=== PATIENT | male | born 1930 | race Caucasian/White ===

== ENCOUNTER 2017-08-11 09:39 | Outpatient (CLI) | payer MEDICARE, MEDICAID | END 2017-08-11 09:40 | disposition home or self-care (01) | LOC: BICULT 09:39 | PROVIDERS: ATTEND Nurse Practitioner Family | DX: R10.9 Unspecified abdominal pain (principal); Q61.02 Congenital multiple renal cysts; N28.89 Other specified disorders of kidney and ureter | CPT/HCPCS: 76700 ==

== ENCOUNTER 2018-03-15 10:27 | Outpatient (CLI) | payer MEDICARE, MEDICAID ==
--- NOTE | 2018-03-15 11:13 | RAD ---
KUB: History: Abdominal pain. FINDINGS: The bowel gas pattern appears nonobstructive. No definite renal calculi are seen. There are arthritic changes of the spine and hips. Vascular calcifications are noted. IMPRESSION: No acute findings. POS: [facility]
--- NOTE | 2018-03-15 11:55 | RAD ---
LUMBAR SPINE THREE VIEWS: HISTORY: An 87-year-old male with low back pain. FINDINGS: Generalized disk osteophytosis. Mild dextroscoliosis. No evidence for acute fracture, dislocation, significant malalignment, or focal bone lesion. IMPRESSION: Lumbar spondylosis with very mild dextroscoliosis. POS: [facility]
== END 2018-03-15 10:28 | disposition home or self-care (01) ==
LOC: RAD-FRANK 10:27
PROVIDERS: ATTEND Nurse Practitioner Family
DX: M54.5 Low back pain (principal); M47.896 Other spondylosis, lumbar region; M41.86 Other forms of scoliosis, lumbar region
CPT/HCPCS: 72100; 74018

== ENCOUNTER 2018-03-31 12:50 | Outpatient (CLI) | payer MEDICARE, MEDICAID ==
[2018-03-31 15:02] LABS: ALT (SGPT) 18 U/L (8-55); AST (SGOT) 27 U/L (5-34); Albumin 4.6 g/dL (3.4-4.8); Alkaline Phosphatase 68 U/L (40-150); Anion Gap 14 mmol/L (10-20); BUN (Urea Nitrogen) 28 mg/dL (8.4-25.7); Bilirubin, Direct 0.4 mg/dL (0.1-0.3); Calc. Creatinine Clearance 0 mL/min (70-130); Calcium 10.3 mg/dL (7.8-10.44); Carbon Dioxide 29 mmol/L (23-31); Cardiac Risk 4.3 (Less than 4.5); Chloride 102 mmol/L (98-107); Cholesterol 154 mg/dl (< 200 Desired); Estimated GFR-MDRD 37; Globulin 3.4 g/dL (2.4-3.5); Glucose 105 mg/dL (83-110); HDL Cholesterol 36 mg/dL (>60 Neg Risk); LDL Cholesterol, Calculated 101 mg/dL; Potassium 3.7 mmol/L (3.5-5.1); Sodium 141 mmol/L (136-145); Triglycerides 86 mg/dL (Less than 150)
== END 2018-03-31 12:51 | disposition home or self-care (01) ==
LOC: LABBT 12:50
PROVIDERS: ATTEND Internal Medicine Cardiovascular Disease
DX: Z01.812 Encounter for preprocedural laboratory examination (principal)
CPT/HCPCS: 80053; 80061; 80076

== ENCOUNTER 2018-04-03 05:42 | Inpatient (IN) | payer MEDICARE, MEDICAID ==
[2018-04-03] MEDS ORDERED: Diazepam 5 MG TAB ONE (08:02)
[2018-04-03] MEDS ORDERED: Nitroglycerin 2% Ointment 1 INCH/1 GM Packet ONE (08:59)
[2018-04-03] MEDS ORDERED: Nitroglycerin 0.4 MG TAB (25 Tab Bottle) ONE (08:59)
[2018-04-03] MEDS ORDERED: Iopamidol 370 76% 100 ML VIAL ONE (11:55)
[2018-04-03] MEDS ORDERED: Lidocaine 1% (PF) 30 ML VIAL ONE (11:57)
[2018-04-03 12:25] LABS: ALT (SGPT) 14 U/L (8-55); AST (SGOT) 22 U/L (5-34); Albumin 3.9 g/dL (3.4-4.8); Alkaline Phosphatase 57 U/L (40-150); Anion Gap 11 mmol/L (10-20); BUN (Urea Nitrogen) 27 mg/dL (8.4-25.7); Bilirubin, Total 0.8 mg/dL (0.2-1.2); Calc. Creatinine Clearance 33 mL/min (70-130); Calcium 9.5 mg/dL (7.8-10.44); Carbon Dioxide 27 mmol/L (23-31); Chloride 106 mmol/L (98-107); Estimated GFR-MDRD 37; Globulin 2.6 g/dL (2.4-3.5); Glucose 96 mg/dL (83-110); Potassium 3.8 mmol/L (3.5-5.1); Protein, Total 6.5 g/dL (5.8-8.1); Sodium 140 mmol/L (136-145)
[2018-04-03] MEDS ORDERED: Nitroglycerin 50 MG/250 ML BOT 250 ML ONE (12:29)
[2018-04-03] MEDS ORDERED: Nitroglycerin 4.9 GM Bottle ONE (12:29)
[2018-04-03] MEDS ORDERED: Metoprolol Tartrate 5 MG/5 ML VIAL ONE ×2 (12:33→13:03)
[2018-04-03] MEDS ORDERED: Albumin 5% 500 ML ONE (12:38)
[2018-04-03] MEDS ORDERED: Fentanyl 250 MCG/5 ML VIAL ONE ×2 (12:47→13:03)
[2018-04-03] MEDS ORDERED: Vecuronium 10 MG VIAL ONE ×2 (12:47→17:01)
[2018-04-03] MEDS ORDERED: Norepinephrine 8 MG/0.9% NS 250 ML ONE (12:47)
[2018-04-03] MEDS ORDERED: Dexmedetomidine 200 MCG/2 ML VIAL ONE (12:47)
[2018-04-03] MEDS ORDERED: Midazolam HCl 5 mg/5 ml Vial ONE (12:47)
[2018-04-03] MEDS ORDERED: Heparin 10,000 UNITS/1 ML VIAL 30,000 UNITS in Sodium Chloride 0.9% 1,000 ML FS SCH (13:15)
[2018-04-03] MEDS ORDERED: CEFAZOLIN 2 GM/50 ML BAG ONE (13:24)
[2018-04-03] MEDS ORDERED: Cardioplegic Soln 1,000 ML BAG ONE (17:01)
[2018-04-03] MEDS ORDERED: Thrombin 5000 UNITS/5 ML VIAL ONE (17:01)
[2018-04-03] MEDS ORDERED: Heparin 5,000 UNITS/ML VIAL ONE (17:01)
[2018-04-03] MEDS ORDERED: Sodium Bicarb 50 MEQ/50 ML VIAL ONE (17:01)
[2018-04-03] MEDS ORDERED: Protamine Sulfate 250 MG/25 ML VIAL ONE (17:01)
[2018-04-03] MEDS ORDERED: PROPOFOL 200 MG/20 ML VIAL ONE (17:01)
[2018-04-03] MEDS ORDERED: Potassium Chloride 60 MEQ/30 ML VIAL ONE (17:01)
[2018-04-03] MEDS ORDERED: Magnesium 5 GM/10 ML VIAL ONE (17:01)
[2018-04-03] MEDS ORDERED: Aminocaproic Acid 5 GM/20 ML VIAL ONE (17:01)
[2018-04-03] MEDS ORDERED: Lidocaine 2% PF 100 mg/5 ml Syringe ONE (17:01)
[2018-04-03] MEDS ORDERED: Heparin 30,000 units/30 ml VIAL ONE (17:01)
[2018-04-03] MEDS ORDERED: Succinylcholine Chloride 20 MG/ML 10 ml SYRINGE FS ONE (17:01)
[2018-04-03] MEDS ORDERED: Papaverine 60 MG/2 ML VIAL ONE (17:01)
[2018-04-03] MEDS ORDERED: Calcium Chloride 1 GM/10 ML Abboject SYRINGE ONE (17:01)
[2018-04-03] MEDS ORDERED: Mannitol 12.5 GM/50 ML ONE (17:01)
[2018-04-03] MEDS ORDERED: PHENYLEPHRINE-NS 100 MCG/ML 10 ML SYRINGE ONE (17:01)
[2018-04-03] MEDS ORDERED: Bisacodyl 10 MG SUPP PR PRN (17:41)
[2018-04-03] MEDS ORDERED: Norepinephrine 8 MG/0.9% NS 250 ML IVPB PRN (17:41)
[2018-04-03] MEDS ORDERED: Mag-Al 1200 mg/1200 mg/30 ML UDCUP PO PRN (17:41)
[2018-04-03] MEDS ORDERED: niCARdipine HCl 25 MG in Sodium Chloride 0.9% 250 ML 240 ML IVPB PRN (17:41)
[2018-04-03] MEDS ORDERED: Guaifenesin DM 100-10/5 ML UDCUP PO PRN (17:41)
[2018-04-03] MEDS ORDERED: Acetaminophen 325 MG TAB PO PRN (17:41)
[2018-04-03] MEDS ORDERED: Bisacodyl 5 MG TAB PO PRN (17:41)
[2018-04-03] MEDS ORDERED: Post-Op Insulin Drip Protocol IVPB ONE (17:41)
[2018-04-03] MEDS ORDERED: Hetastarch 6% 500 ML 500 ML IVPB PRN (17:41)
[2018-04-03] MEDS ORDERED: HYDROcodone/Acetaminophen 5/325 mg Tablet PO PRN ×2 (17:41)
[2018-04-03] MEDS ORDERED: Promethazine HCl 25 MG/ML VIAL IM PRN (17:41)
[2018-04-03] MEDS ORDERED: DOPamine 400 MG/D5W 250 ML 250 ML IVPB PRN (17:41)
[2018-04-03] MEDS ORDERED: Fentanyl 100 MCG/2 ML VIAL SLOW IVP PRN (17:41)
[2018-04-03] MEDS ORDERED: Dextrose 5% in Water 1,000 ML IV PRN (18:08)
[2018-04-03] MEDS ORDERED: Dextrose 50% Abboject 50 ML SYRINGE SLOW IVP PRN (18:08)
[2018-04-03 18:10] LABS: #Eosinphils 0.1 thou/uL (0.0-0.7); #Lymphocytes 1.3 thou/uL (1.20-3.40); #Monocytes 0.5 thou/uL (0.11-0.59); %Basophils 0.1 % (0.0-1.0); %Eosinophils 0.5 % (0.0-10.0); %Lymphocytes 8.2 % (21.0-51.0); %Monocytes 3.3 % (0.0-10.0); %Neutrophils 87.9 % (42.0-75.0); Hemoglobin 9.1 g/dL (14.0-18.0); Mean Corpuscular HGB CONC 33.9 g/dL (32.0-36.0); Mean Corpuscular Hemoglobin 30.9 pg (27.0-31.0); Mean Corpuscular Volume 91.1 fL (78.0-98.0); Platelet Count 169 thou/uL (130-400); RBC Distribution Width 12.9 % (11.5-14.5); Red Blood Cell (RBC) Count 2.93 mill/uL (4.70-6.10); White Blood Cell (WBC) Count 15.9 thou/uL (4.8-10.8)
[2018-04-03 18:17] LABS: INR-International Normal Ratio 1.5; PTT 37.2 SEC (22.9-36.1); Prothrombin Time 17.8 SEC (12.0-14.7)
[2018-04-03 18:26] LABS: Actual Bicarbonate (HCO3a) 22.5 mEq/L (22-28); Base Excess (BEa) -0.8 mEq/L (-2.0 to +3.0); CO2 Tension 32.5 mmHg (35.0-45.0); Carboxyhemoglobin (COHb) 0.7 gm% (0.0-3.0); Hemoglobin (Hb) 10.6 g/dL (14.0-18.0); O2 Tension (PaO2) 90.3 mmHg (> 60.0); pH, Arterial 7.46 (7.35-7.45)
[2018-04-03 18:28] LABS: Puncture Site ALINE
[2018-04-03] MEDS: Insulin Regular 300 UNITS/3 ML VIAL SC PRN ×2 (18:28→23:51)
[2018-04-03 18:29] LABS: ALV-art Gradient 225.575 (0-20)
[2018-04-03 18:35] LABS: Anion Gap 13 mmol/L (10-20); BUN (Urea Nitrogen) 23 mg/dL (8.4-25.7); Calc. Creatinine Clearance 41 mL/min (70-130); Calcium 7.7 mg/dL (7.8-10.44); Carbon Dioxide 21 mmol/L (23-31); Chloride 110 mmol/L (98-107); Estimated GFR-MDRD 47; Glucose 127 mg/dL (83-110); Potassium 3.7 mmol/L (3.5-5.1); Sodium 140 mmol/L (136-145)
[2018-04-03] MEDS: Sodium Chloride 0.45% 1,000 ML IV SCH (18:36)
--- NOTE | 2018-04-03 18:51 | RAD ---
SINGLE VIEW CHEST: HISTORY: Status post open heart surgery. COMPARISON: None. FINDINGS: A single view of the chest show a normal sized cardiomediastinal silhouette. The patient is status p ost sternotomy. There is an endotracheal tube with its tip above the clavicle. A central venous cat heter is seen with its tip in the superior vena cava. A left chest tube and mediastinal drain are pr esent. There is no evidence of consolidation, mass, pneumothorax, or pleural effusion. IMPRESSION: Appropriate position of lines and tubes, status post sternotomy. POS: [facility]
[2018-04-03] MEDS ORDERED: Potassium Chloride 10 MEQ/100 ML PREMIX BAG IVPB PRN (19:00)
--- NOTE | 2018-04-03 19:33 | CON ---
DATE OF CONSULTATION: 04/03/2018 HISTORY OF PRESENT ILLNESS: This is an 87-year-old gentleman who lives alone in the [facility]. He was walking regularly several miles a day for exercise, but earlier this summer curtailed his exer cise program due to epigastric and lower chest discomfort. It was not clear whether this was abdomin al GI problem or cardiac problem. A stress test revealed a normal ejection fraction with anterior la teral ischemia and a cardiac catheterization today demonstrated severe 3-vessel coronary artery disea se. PAST MEDICAL HISTORY: Includes renal insufficiency for which he is followed by Dr. Bernstein. He has no p revious history of cardiac disease. PAST SURGICAL HISTORY: Negative. ALLERGIES: He has no known allergies. MEDICATIONS: Noted in Dr. Dan's office history and physical. PHYSICAL EXAMINATION: GENERAL: He is an alert, cooperative gentleman, 170 pounds stated, height 67 inches stated. CARDIAC: Regular rate and rhythm. No murmurs. LUNGS: Clear to auscultation. ABDOMEN: Soft and nontender. EXTREMITIES: He has a sheath in the right groin. He has no peripheral edema. He has palpable pulse s throughout. Cardiac catheterization shows severe 3-vessel coronary artery disease with potential t argets including an LAD, diagonal, ramus, OM and right PDA. Informed consent has been obtained.
[2018-04-03] MEDS: Fentanyl 100 MCG/2 ML VIAL SLOW IVP PRN (19:48)
[2018-04-03] MEDS ORDERED: Famotidine/PF 20 mg/2ml Vial SLOW IVP SCH (21:00)
[2018-04-03] MEDS ORDERED: Simvastatin 20 MG TAB PO SCH (21:00)
[2018-04-03] MEDS: CEFAZOLIN 2 GM/50 ML BAG IVPB SCH (21:25)
[2018-04-03 23:53] LABS: Hemoglobin 9.6 g/dL (14.0-18.0)
[2018-04-04 00:43] LABS: Actual Bicarbonate (HCO3a) 21.8 mEq/L (22-28); Base Excess (BEa) -3.3 mEq/L (-2.0 to +3.0); pH, Arterial 7.37 (7.35-7.45)
[2018-04-04 00:44] LABS: Carboxyhemoglobin (COHb) 1.5 gm% (0.0-3.0); Hemoglobin (Hb) 9.5 g/dL (14.0-18.0); Puncture Site ALINE
--- NOTE | 2018-04-04 01:03 | OP ---
PREOPERATIVE DIAGNOSIS: Coronary artery disease. POSTOPERATIVE DIAGNOSIS: Coronary artery disease. PROCEDURES: Coronary artery bypass graft x5, left internal mammary artery good quality to a 1.5 to 2 mm LAD, saphenous vein good quality to 1.5 to 2 mm right PDA, saphenous vein good quality to 1.5 mm OM, 1.25 mm ramus, and 1.25 to 1.5 mm diagonal. SURGEON: Hayder Serra M.D. PATTERN CHANGER: Driss Perrin MD TRANSFUSION: None. PROCEDURE IN DETAIL: After adequate anesthesia had been obtained, patient was prepped and draped. Roslyn Perrin initially did an endovascular vein harvest of the left greater saphenous vein. George tripathi, due to some marginal vein quality below the knee, he did an open harvest of the proximal, right gr eater saphenous vein. Simultaneously, I performed a median sternotomy. Left internal mammary artery was harvested. Left pleura was opened in one small area. The mammary was then divided distally aft er heparinization, passed posterior to the thymus gland. Pericardium was incised to allow the mammar y and more direct access to the LAD, following which, the traction sutures were placed in the pericar dium. The aorta and right atrium cannulated and cardiopulmonary bypass instituted. Vessels were ins pected for grafting. The patient had somewhat thickened heart. Aorta was cross-clamped and a liter of cold blood cardioplegia was given through the aortic root, following which the PDA and the OM vein grafts were performed. Heart was beating at that point, an additional 300 mL of cardioplegia was gi major. Following this, the remainder of the grafts were done onto the ramus, diagonal, and LAD and the cross-clamp was removed. Partial occluding clamp placed and 4 proximal anastomoses performed on the aortic root. Following completion of this, proximal and distal suture lines were inspected. Cannul as were removed after weaning from cardiopulmonary bypass. Protamine was given systemically. Aortic cannulation site reinforced with a 4-0 Prolene suture. A mediastinal and left pleural drain were pl aced, following which the sternum was reapproximated with #7 interrupted wire using vancomycin paste on the sternal edges, platelet rich blood, and platelet-poor plasma. Subcutaneous tissue and skin we re closed in layers.
[2018-04-04] MEDS: Potassium Chloride 10 MEQ in Premix Bag 1 BAG IVPB PRN (01:06)
[2018-04-04] MEDS: Fentanyl 100 MCG/2 ML VIAL SLOW IVP PRN (02:26)
[2018-04-04] MEDS: Sodium Chloride 0.45% 1,000 ML IV SCH ×3 (02:33→17:27)
[2018-04-04] MEDS: Ondansetron PF 4 MG/2 ML Vial IVP PRN ×2 (02:54→08:43)
[2018-04-04] MEDS: Insulin Regular 300 UNITS/3 ML VIAL SC PRN (04:23)
[2018-04-04 04:35] LABS: #Lymphocytes 1.2 thou/uL (1.20-3.40); #Monocytes 1.8 thou/uL (0.11-0.59); #Neutrophils 15.6 thou/uL (1.40-6.50); %Eosinophils 0.2 % (0.0-10.0); %Lymphocytes 6.3 % (21.0-51.0); %Monocytes 9.5 % (0.0-10.0); Hemoglobin 9.2 g/dL (14.0-18.0); Mean Corpuscular HGB CONC 33.5 g/dL (32.0-36.0); Mean Corpuscular Hemoglobin 30.8 pg (27.0-31.0); Mean Corpuscular Volume 92.1 fL (78.0-98.0); Mean Platelet Volume 8.1 fL (7.4-10.4); Platelet Count 231 thou/uL (130-400); RBC Distribution Width 13.1 % (11.5-14.5); Red Blood Cell (RBC) Count 2.97 mill/uL (4.70-6.10); White Blood Cell (WBC) Count 18.5 thou/uL (4.8-10.8)
[2018-04-04 04:55] LABS: Anion Gap 14 mmol/L (10-20); BUN (Urea Nitrogen) 27 mg/dL (8.4-25.7); Calc. Creatinine Clearance 33 mL/min (70-130); Calcium 7.9 mg/dL (7.8-10.44); Carbon Dioxide 20 mmol/L (23-31); Chloride 111 mmol/L (98-107); Estimated GFR-MDRD 37; Glucose 131 mg/dL (83-110); Potassium 4.3 mmol/L (3.5-5.1); Sodium 141 mmol/L (136-145)
[2018-04-04] MEDS: CEFAZOLIN 2 GM/50 ML BAG IVPB SCH ×2 (05:04→13:29)
[2018-04-04] MEDS: Aspirin 325 MG TAB PO SCH (08:35)
--- NOTE | 2018-04-04 09:09 | RAD ---
PORTABLE CHEST: Comparison: 04-03-18 History: Post op open heart surgery. FINDINGS: Heart size is enlarged with post op sternotomy changes. Pulmonary vessels are engorged with increased parahilar markings. Also the cardiac silhouette appears larger than it did on the prior exam. This m ay be technique related. Endotracheal tube has been removed. Right subclavian line is unchanged in po sition. IMPRESSION: Cardiomegaly. The cardiac silhouette is larger than on the prior examination of uncertain significanc e, possibly technique related. There are more prominent perihilar markings suggesting an element of e mohinder. POS: [facility]
--- NOTE | 2018-04-04 12:57 | EKG ---
Test Reason : Blood Pressure : / mmHG Vent. Rate : 071 BPM Atrial Rate : 071 BPM P-R Int : 268 ms QRS Dur : 150 ms QT Int : 492 ms P-R-T Axes : 062 -63 112 degrees QTc Int : 534 ms Sinus rhythm with 1st degree A-V block Left axis deviation Left bundle branch block Abnormal ECG Confirmed by MISTY DUEÑAS ([id number]) on 04/04/2018 12:57:20 PM Referred By: SERENA Confirmed By:MISTY DUEÑAS
[2018-04-04] MEDS: Acetaminophen 500 MG TAB PO PRN (20:11)
[2018-04-04] MEDS: Rosuvastatin 20 MG TAB PO SCH (20:11)
[2018-04-04] MEDS ORDERED: Amiodarone HCl 150 MG, Admixture Fee 1 EACH in Dextrose 5% in Water 100 ML IVPB SCH (20:45)
[2018-04-04] MEDS ORDERED: Famotidine/PF 20 mg/2ml Vial SLOW IVP SCH (21:00)
[2018-04-04] MEDS: Amiodarone HCl 450 MG, Admixture Fee 1 EACH in Dextrose 5% in Water 250 ML IVPB SCH (21:04)
[2018-04-05] MEDS: Sodium Chloride 0.45% 1,000 ML IV SCH (03:39)
[2018-04-05 04:57] LABS: #Lymphocytes 2.6 thou/uL (1.20-3.40); #Monocytes 1.9 thou/uL (0.11-0.59); #Neutrophils 13.9 thou/uL (1.40-6.50); %Basophils 0.1 % (0.0-1.0); %Eosinophils 0.2 % (0.0-10.0); %Lymphocytes 14.3 % (21.0-51.0); %Monocytes 10.4 % (0.0-10.0); %Neutrophils 75.1 % (42.0-75.0); Hemoglobin 8.7 g/dL (14.0-18.0); Mean Corpuscular Hemoglobin 30.9 pg (27.0-31.0); Mean Corpuscular Volume 93.6 fL (78.0-98.0); Mean Platelet Volume 8.4 fL (7.4-10.4); Platelet Count 211 thou/uL (130-400); RBC Distribution Width 13.2 % (11.5-14.5); Red Blood Cell (RBC) Count 2.82 mill/uL (4.70-6.10); White Blood Cell (WBC) Count 18.5 thou/uL (4.8-10.8)
[2018-04-05 05:27] LABS: Anion Gap 11 mmol/L (10-20); BUN (Urea Nitrogen) 38 mg/dL (8.4-25.7); Calc. Creatinine Clearance 20 mL/min (70-130); Calcium 8.4 mg/dL (7.8-10.44); Carbon Dioxide 23 mmol/L (23-31); Chloride 105 mmol/L (98-107); Estimated GFR-MDRD 21; Glucose 134 mg/dL (83-110); Potassium 4.3 mmol/L (3.5-5.1); Sodium 135 mmol/L (136-145)
[2018-04-05] MEDS ORDERED: Sodium Chloride 0.45% 1,000 ML IV SCH ×2 (06:07→08:48)
[2018-04-05] MEDS: Amiodarone HCl 450 MG, Admixture Fee 1 EACH in Dextrose 5% in Water 250 ML IVPB SCH ×2 (06:08→16:50)
[2018-04-05] MEDS ORDERED: Albumin 25% 25 GM/100 ML BOT IVPB ONE (07:31)
--- NOTE | 2018-04-05 08:30 | CON ---
DATE OF CONSULTATION: 04/05/2018 SERVICE: Renal Medicine. HISTORY OF PRESENT ILLNESS: Mr. 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 He underwent a cardiac catheterization with subsequent CAB G. He did well with the said CABG. We are now being consulted for management of his chronic renal f ailure. This morning, he feels better. He does have a slight postop chest pain. REVIEW OF SYSTEMS: Positive for postop pain. No shortness of breath, no nausea, no vomiting, no chauncey rrhea, no constipation, no productive cough, no fever or chills, no headache, no hematochezia, no dys uria, no urinary frequency. PAST MEDICAL HISTORY: 1. Longstanding hypertension. 2. 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 3. He has previous hyperlipidemia - on diet. 4. History of BPH. PAST SURGICAL HISTORY: 1. Recently status post cardiac catheterization. 2. Status post coronary artery bypass grafting. SOCIAL HISTORY: Patient is single. No children. He lives alone. He lives in the [facility]. 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 No history of smoking. Alcohol none. No IV drug abuse. No blo od transfusion. Active lifestyle. ALLERGIES: No known drug allergies. TRAUMA: None. IMMUNIZATIONS: Up to date. HOSPITALIZATIONS: Please see past medical history. FAMILY HISTORY: No family history of ESRD. PHYSICAL EXAMINATION: VITAL SIGNS: Blood pressure 130/63, heart rate 97, respiratory rate 9, pulse ox 94%. GENERAL EXAM: Awake, supine, comfortable, not in distress. SKIN: Adequate turgor. HEENT: He has pinkish conjunctivae, anicteric sclerae. NECK: No neck mass, no carotid bruits, no JVD. CHEST: No deformities. LUNGS: Decreased breath sounds. HEART: Normal sinus rhythm. No murmur, no gallops, no rubs. CHEST: Midline sternal operative scar. ABDOMEN: Globular, soft, nontender, no masses. Positive for bowel sounds. Negative for epigastric bruits. GROIN EXAM: No inguinal lymphadenopathy. EXTREMITIES: No edema, no deformities. NEUROLOGICAL EXAM: Awake, oriented to 3 spheres. Moving all extremities. No tremors, no asterixis, no ataxia. Medications of 04/05/2018, Tylenol 1000 mg q.6 hours p.r.n., amiodarone drip, aspirin 325 mg once a d ay, Dulcolax p.r.n., dopamine drip p.r.n., Humulin R sliding scale, morphine sulfate 2 mg IV every 15 minutes p.r.n., nicardipine drip to maintain BP at less than 140 systolic, Levophed drip, Protonix 4 0 mg daily, Crestor 20 mg tab at bedtime, 1/2 normal saline 50 mL per hour, Flomax 0.4 mg at bedtime. LABORATORY DATA: Laboratories of 04/05/2018, white count 18.5, hemoglobin is 8.7, hematocrit 26.4. Sodium 135, potassium 4.3, chloride 105, carbon dioxide 23, BUN 38, creatinine 2.93, glucose 134, mary ellen cium 8.4. 04/04/2018, BUN 27, creatinine 1.76. 04/03/2018, BUN 23, creatinine 1.44. 08/03/2017, cr eatinine 1.58. ASSESSMENT AND PLAN: 1. Acute kidney injury on top of his chronic renal failure, slightly higher creatinine today at 2.93 . Yesterday, this was 1.76. This may be a reflection of hemodynamically-mediated renal dysfunction. However, the chest x-ray did show some increased lung markings. My bias is simply to continue to o bserve the patient. There is no indication for any dialytic intervention. Should the renal function further worsen, we may need to empirically start him on salt-poor albumin at 25 grams IV q.6 hours. No indication for any dialytic intervention. We will be rechecking a urinalysis with this patient t o rule out any acute tubular necrosis. 2. Coronary artery disease - patient is status post coronary artery bypass grafting, doing well. Co ntinue supportive care. Surgery is following. 3. Hypertension. Once patient can take p.o., consider resuming back his oral blood pressure medicat ions. Please note, the patient in the past has taken atenolol, hydrochlorothiazide, minoxidil, and a mlodipine. Thank you for the consult. We will continue to follow.
[2018-04-05] MEDS ORDERED: Amiodarone HCl 150 MG in Dextrose 5% in Water 100 ML IVPB SCH (08:45)
--- NOTE | 2018-04-05 09:25 | RAD ---
CHEST 1 VIEW: Date: 04/05/18 INDICATION: History of status post open heart surgery. COMPARISON: Prior exam dated 04/04/18. FINDINGS: There is cardiomegaly with pulmonary vascular congestion. There is right subclavian central venous ca theter. Mediastinal drain and left-sided thoracostomy tube is unchanged. No pneumothorax is evident. Left basilar opacity and left pleural effusion are stable. IMPRESSION: 1. Peristent left basilar opacity and left-sided pleural effusion. 2. Stable cardiomegaly with improved pulmonary vascular congestion. 3. Stable tubes and lines. 4. No pneumothorax. POS: [facility]
[2018-04-05] MEDS: Albumin 25% 25 GM/100 ML BOT IVPB SCH ×3 (10:04→21:50)
[2018-04-05] MEDS: Aspirin 325 MG TAB PO SCH (10:04)
[2018-04-05] MEDS: Tamsulosin HCl 0.4 MG CAP PO SCH (10:04)
--- NOTE | 2018-04-05 12:39 | ULT ---
RENAL ULTRASOUND: Comparison: None. History: Renal failure. Technique: Multiplanar grayscale and color doppler images were obtained in a renal ultrasound. FINDINGS: The kidneys demonstrate normal cortical echogenicity. There is a cyst in the right kidney measuring 1 .6 cm in greatest dimension. A few small echogenic foci are seen in the left kidney which do not demo nstrate shadowing but could potentially represent nonobstructive left renal calcifications. The large st measures 4 mm in greatest dimension. There is no evidence of hydronephrosis on either side. A Fole y catheter decompresses the urinary bladder. The kidneys measure 10.2 and 9.7 cm in length on the rig ht and left respectively. IMPRESSION: 1. Right renal cyst. 2. Possible nonobstructing left renal calcifications. POS: [facility]
--- NOTE | 2018-04-05 15:45 | EKG ---
Test Reason : Blood Pressure : / mmHG Vent. Rate : 117 BPM Atrial Rate : 120 BPM P-R Int : 000 ms QRS Dur : 140 ms QT Int : 318 ms P-R-T Axes : 000 -41 114 degrees QTc Int : 443 ms Atrial fibrillation with rapid ventricular response Left axis deviation Non-specific intra-ventricular conduction block Cannot rule out Anteroseptal infarct , age undetermined T wave abnormality, consider lateral ischemia Abnormal ECG Confirmed by MISTY DUEÑAS ([id number]) on 04/05/2018 3:44:54 PM Referred By: SPENSER Confirmed By:MISTY DUEÑAS
[2018-04-05 17:05] LABS: Bilirubin Negative (Negative); Blood, Urine Small (Negative); Clarity CLOUDY (Clear); Glucose, Urine (Dipstick) Negative (Negative); Leukocyte Trace (Negative); Nitrite Negative (Negative); Protein, Urine (Dipstick) 30 mg/dL (Neg-Trace); Specific Gravity, Urine 1.009 (1.002-1.036); Urobilinogen 0.2 mg/dL (0.2-1.0)
[2018-04-05 17:07] LABS: Bacteria/HPF None Seen HPF (None Seen); Hyaline Casts/LPF 4-6 HYALINE CAST LPF (0-3 Hyaline); Pathc Cast-AUWi Flag 1.45 (0-2.49); Squamous Epithelial 0-3 HPF (0-3)
[2018-04-05 17:20] LABS: Transitional Epithelial 0-3 HPF (0-3)
[2018-04-05] MEDS: Rosuvastatin 20 MG TAB PO SCH (21:50)
[2018-04-06] MEDS: Albumin 25% 25 GM/100 ML BOT IVPB SCH ×4 (02:03→20:29)
[2018-04-06 03:05] LABS: Actual Bicarbonate (HCO3a) 21.8 mEq/L (22-28); Base Excess (BEa) -2.9 mEq/L (-2.0 to +3.0); Calcium, Ionized 1.16 mmol/L (1.12-1.30); Carboxyhemoglobin (COHb) 1.3 gm% (0.0-3.0); Hemoglobin (Hb) 8.6 g/dL (14.0-18.0); Potassium - ABG Lab 3.88 mmol/L (3.70-5.30); pH, Arterial 7.39 (7.35-7.45)
[2018-04-06 03:13] LABS: O2 Tension (PaO2) 53.1 mmHg (> 60.0); Puncture Site LRA
[2018-04-06] MEDS: hydrALAZINE 20 MG/ML VIAL SLOW IVP PRN ×2 (03:41→13:19)
[2018-04-06] MEDS ORDERED: Furosemide 40 MG/4 ML VIAL SLOW IVP SCH ×2 (03:45→08:00)
[2018-04-06 04:04] LABS: #Eosinphils 0.2 thou/uL (0.0-0.7); #Lymphocytes 1.7 thou/uL (1.20-3.40); #Monocytes 1.3 thou/uL (0.11-0.59); %Basophils 0.1 % (0.0-1.0); %Eosinophils 0.9 % (0.0-10.0); %Lymphocytes 9.7 % (21.0-51.0); %Monocytes 7.5 % (0.0-10.0); %Neutrophils 81.7 % (42.0-75.0); Hemoglobin 8.2 g/dL (14.0-18.0); Mean Corpuscular HGB CONC 33.6 g/dL (32.0-36.0); Mean Corpuscular Hemoglobin 31.1 pg (27.0-31.0); Mean Corpuscular Volume 92.6 fL (78.0-98.0); Mean Platelet Volume 8.6 fL (7.4-10.4); Platelet Count 214 thou/uL (130-400); Red Blood Cell (RBC) Count 2.64 mill/uL (4.70-6.10); White Blood Cell (WBC) Count 17.2 thou/uL (4.8-10.8)
[2018-04-06 04:22] LABS: Anion Gap 15 mmol/L (10-20); BUN (Urea Nitrogen) 39 mg/dL (8.4-25.7); Calc. Creatinine Clearance 25 mL/min (70-130); Calcium 9.4 mg/dL (7.8-10.44); Carbon Dioxide 22 mmol/L (23-31); Chloride 104 mmol/L (98-107); Estimated GFR-MDRD 24; Glucose 151 mg/dL (83-110); Potassium 3.9 mmol/L (3.5-5.1); Sodium 137 mmol/L (136-145)
[2018-04-06] MEDS ORDERED: Metolazone 5 MG TAB PO SCH (06:15)
[2018-04-06] MEDS ORDERED: Atenolol 50 MG TAB PO SCH (06:30)
[2018-04-06] MEDS ORDERED: Midazolam HCl 2 mg/2 ml Vial IVP SCH (08:00)
--- NOTE | 2018-04-06 08:06 | CON ---
DATE OF CONSULTATION: 04/06/2018 CONSULTING PHYSICIAN: Dr. Serra REASON FOR CONSULTATION: Acute hypoxic respiratory failure. HISTORY OF PRESENT ILLNESS: The patient is an 87-year-old male who presented to the hospital on 03/07. He had a cardiac catheterization showing 3-vessel disease. He subsequently underwent kelly ry bypass grafting surgery on 04/03/2018. Postoperatively, his course has been complicated by the de velopment of acute on chronic renal failure and acute respiratory failure requiring BiPAP. Because t he mask is on, I am unable to get much history from this gentleman. PAST MEDICAL HISTORY: 1. Hypertension. 2. Coronary artery disease. 3. Nephropathy due to hypertension. 4. Hyperlipidemia. 5. Benign prostatic hypertrophy. PAST SURGICAL HISTORY: Cardiac catheterization and recent coronary bypass grafting surgery. SOCIAL HISTORY: Nonsmoker, does not consume alcohol. 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 ALLERGIES: None. CURRENT MEDICATIONS: DuoNeb, amiodarone, Tenormin, Lasix, insulin, Zaroxolyn, Protonix, Crestor, Constantino max. PHYSICAL EXAMINATION: VITAL SIGNS: Temperature 98.2, pulse 117, blood pressure 156/94, O2 sat 100%. Intake last 24 hours 520, output 2655. Weight currently 180 pounds. GENERAL: He is resting on BiPAP. His has minute ventilation of about 16.8 liters per minute which i s high. He is tachypneic on the BiPAP. HEENT: Otherwise, unremarkable. NECK: No JVD. LUNGS: Coarse breath sounds. CARDIOVASCULAR: S1, S2, irregularly irregular and tachycardic. ABDOMEN: Soft, obese, nontender. EXTREMITIES: No edema. LABORATORY DATA: Sodium 137, potassium 3.9, chloride 104, CO2 22, BUN 39, creatinine 2.5, glucose 15 1. White blood cell count 17.2, hematocrit 24.5, platelet count 214. His chest x-ray shows pulmonary vascular congestion and post-sternotomy wires. ASSESSMENT: 1. Acute respiratory failure secondary to fluid overload. 2. Acute on chronic renal insufficiency. PLAN: 1. Continue diuresis as you are doing. 2. Consider better rate control of atrial fibrillation. 3. Diurese. 4. We will follow with you and hopefully wean BiPAP as tolerated, throughout the day today.
[2018-04-06] MEDS ORDERED: Midazolam HCl 2 mg/2 ml Vial ONE ×2 (08:10→14:47)
[2018-04-06] MEDS ORDERED: Amiodarone HCl 150 MG, Admixture Fee 1 EACH in Dextrose 5% in Water 100 ML IVPB SCH (08:30)
[2018-04-06] MEDS ORDERED: Amiodarone HCl 450 MG, Admixture Fee 1 EACH in Dextrose 5% in Water 250 ML IVPB SCH (08:30)
[2018-04-06] MEDS: Aspirin 325 MG TAB PO SCH (08:34)
[2018-04-06] MEDS: Tamsulosin HCl 0.4 MG CAP PO SCH (08:34)
--- NOTE | 2018-04-06 09:15 | RAD ---
AP VIEW CHEST: HISTORY: Open heart surgery. FINDINGS: AP view chest is obtained on 04/06/2018. Comparison is made to previous exam from 04/05/2018. AP view chest demonstrates sternotomy wires seen. A right subclavian central line is in place. Card iomegaly noted. Pulmonary vascular congestion is seen. There is some blunting of the left costophrenic angle compatible with a tiny left-sided pleural effus ion. The mediastinal drain has been removed. IMPRESSION: Cardiomegaly and pulmonary vascular congestion. POS: [facility]
--- NOTE | 2018-04-06 09:49 | PRG ---
DATE OF SERVICE: 04/06/2018 SUBJECTIVE: Mr. Williamson is an 87-year-old white male status post CABG and seen by the Renal Service for acute kidney injury on top of his chronic renal failure. Due to the higher creatinine we started the patient back on salt poor albumin. Creatinine is slightly improved from 2.7-2.5. He was noted to be in some respiratory distress today. Lasix 40 mg IV was given. In addition, chest x-ray showed CHF. The plan is to place him on a maintenance dose of IV diuretics. I will place this patient on Lasix 4 0 mg IV q.12 hours. PHYSICAL EXAMINATION: VITAL SIGNS: Blood pressure is 176/94, heart rate is 117, respiratory rate 28, pulse ox 100%. GENERAL: Noted to be awake, alert, in mild respiratory distress noted to be on BiPAP. HEENT: Slightly pale conjunctivae, anicteric sclerae. NECK: No neck mass, no carotid bruits, no JVD. CHEST: No deformities. LUNGS: Clear breath sounds. HEART: Normal sinus rhythm. No murmur, no gallops, no rubs. ABDOMEN: Globular, soft, nontender, no masses. EXTREMITIES: No edema, no deformities. MEDICATIONS: 04/06/2018 - Reviewed. LABORATORY: 04/06/2018 - White count 17.2, hemoglobin 8.2. Sodium 137, potassium 3.9, chloride 104, carbon dioxide 22, BUN 39, creatinine 2.55, glucose 151, calcium 9.4. ASSESSMENT AND PLAN: 1. Congestive heart failure. Resume back Lasix at 60 mg IV q.12 hours. Continue salt poor albumin. 2. Acute kidney injury - hemodynamically mediated renal dysfunction on top of his chronic renal fail ure. Continue salt poor albumin. I agree with current diuretic regimen - will increase Lasix to 60 mg IV q.12 hours. 3. Status post coronary artery bypass graft. Supportive care. Cardiothoracic Surgery following.
[2018-04-06] MEDS: Amiodarone HCl 450 MG in Dextrose 5% in Water 250 ML IVPB SCH ×2 (11:15→20:33)
[2018-04-06] MEDS ORDERED: Digoxin 0.5 MG/2 ML AMP ONE (11:26)
[2018-04-06] MEDS: Midazolam HCl 2 mg/2 ml Vial IVP SCH ×2 (11:30→13:06)
[2018-04-06] MEDS ORDERED: Digoxin 0.5 MG/2 ML AMP SLOW IVP SCH ×2 (11:30→12:30)
[2018-04-06 14:19] LABS: Actual Bicarbonate (HCO3a) 21.6 mEq/L (22-28); Base Excess (BEa) -1.9 mEq/L (-2.0 to +3.0); CO2 Tension 31.7 mmHg (35.0-45.0); Calcium, Ionized 1.12 mmol/L (1.12-1.30); Carboxyhemoglobin (COHb) 0.8 gm% (0.0-3.0); Hemoglobin (Hb) 9.1 g/dL (14.0-18.0); O2 Tension (PaO2) 66.1 mmHg (> 60.0); Potassium - ABG Lab 3.63 mmol/L (3.70-5.30); pH, Arterial 7.45 (7.35-7.45)
[2018-04-06 14:20] LABS: Puncture Site RRA
[2018-04-06 14:21] LABS: ALV-art Gradient 322.075 (0-20)
[2018-04-06] MEDS: Furosemide 40 MG/4 ML VIAL SLOW IVP SCH (14:28)
[2018-04-06] MEDS ORDERED: Nitroglycerin 50 MG/250 ML BOT 250 ML ONE (14:37)
[2018-04-06] MEDS ORDERED: Propofol 1,000 MG/100 ML VIAL IV ONE (14:47)
[2018-04-06] MEDS ORDERED: Midazolam HCl 2 mg/2 ml Vial SLOW IVP SCH (15:05)
[2018-04-06] MEDS ORDERED: DISCONTINUE PREVIOUS NARCOTIC PAIN MEDICATIONS AND BENZODIAZEPINES FS SCH (15:15)
[2018-04-06] MEDS ORDERED: Propofol BOLUS 1,000 MG/100 ML VIAL IV PRN (15:15)
[2018-04-06] MEDS ORDERED: Lorazepam 2 MG/ML VIAL SLOW IVP PRN (15:15)
[2018-04-06] MEDS ORDERED: Fentanyl CADD 250 ML IVPB SCH (15:15)
[2018-04-06] MEDS ORDERED: Ventilator Sedation Protocol 1 EACH FS SCH (15:15)
[2018-04-06] MEDS ORDERED: fentaNYL Citrate/PF 2,000 MCG in Sodium Chloride 0.9% 60 ML IV SCH (15:15)
[2018-04-06] MEDS ORDERED: Fentanyl BOLUS 250 ML IVPB PRN (15:15)
[2018-04-06 15:45] LABS: Actual Bicarbonate (HCO3a) 22.1 mEq/L (22-28); Base Excess (BEa) -0.8 mEq/L (-2.0 to +3.0); CO2 Tension 29.4 mmHg (35.0-45.0); Calcium, Ionized 1.12 mmol/L (1.12-1.30); Carboxyhemoglobin (COHb) 1.4 gm% (0.0-3.0); Hemoglobin (Hb) 7.8 g/dL (14.0-18.0); Potassium - ABG Lab 3.52 mmol/L (3.70-5.30); pH, Arterial 7.49 (7.35-7.45)
[2018-04-06 15:48] LABS: O2 Tension (PaO2) 59.8 mmHg (> 60.0)
[2018-04-06 15:49] LABS: Puncture Site L.R.
--- NOTE | 2018-04-06 16:19 | RAD ---
SINGLE VIEW OF THE CHEST: Comparison: 04-06-18 at 5:17 a.m. History: Respiratory failure. Intubated patient. FINDINGS: Single view of the chest shows an enlarged but stable cardiomediastinal silhouette. Patient is status post sternotomy. An endotracheal tube is seen with its tip between the clavicles. An NG tube cannot be completely followed off the inferior aspect of the film and it is seen at least to the level of th e mediastinum. The central venous catheter is unchanged in position. There appear to be small bilater al pleural effusions. IMPRESSION: 1. Appropriate position of endotracheal tube. 2. Unclear position of the NG tube. 3. Small bilateral pleural effusions. POS: [facility]
--- NOTE | 2018-04-06 16:23 | PRG ---
DATE OF SERVICE: 04/06/2018 SUBJECTIVE: Mr. Williamson has had problems throughout the afternoon with increasing respiratory distre ss on the BiPAP. I came by and reevaluate him about 2:45 p.m. He was in respiratory distress on the BiPAP, uncooperative at times, tearing the mask off. He was cardioverted earlier, but he did not stay in sinus rhythm. Based on his degree of respiratory distress, I have decided to reintubate him. Using 2 mg of Versed and induction agent, I intubated him via GlideScope orally with a 7.5 endotracheal tube on first atte mpt. Placement was confirmed by auscultation. The patient was placed on mechanical ventilation - pr essure control mode. He will be lightly sedated on propofol. X-ray and ABG will be checked. Total critical care time between this morning and this afternoon, 90 minutes.
[2018-04-06] MEDS ORDERED: Nitroglycerin 50 MG/250 ML BOT 250 ML IVPB PRN (18:41)
[2018-04-06] MEDS: Rosuvastatin 20 MG TAB PO SCH (20:30)
[2018-04-07] MEDS: Albumin 25% 25 GM/100 ML BOT IVPB SCH ×2 (02:49→09:24)
[2018-04-07 04:50] LABS: #Basophils 0.2 thou/uL (0.0-0.2); #Eosinphils 0.1 thou/uL (0.0-0.7); #Lymphocytes 1.4 thou/uL (1.20-3.40); #Neutrophils 10.9 thou/uL (1.40-6.50); %Basophils 1.1 % (0.0-1.0); %Eosinophils 0.5 % (0.0-10.0); %Lymphocytes 10.2 % (21.0-51.0); %Monocytes 7.4 % (0.0-10.0); %Neutrophils 80.8 % (42.0-75.0); Hemoglobin 7.3 g/dL (14.0-18.0); Mean Corpuscular HGB CONC 34.7 g/dL (32.0-36.0); Mean Corpuscular Hemoglobin 31.8 pg (27.0-31.0); Mean Corpuscular Volume 91.6 fL (78.0-98.0); Mean Platelet Volume 8.5 fL (7.4-10.4); Platelet Count 218 thou/uL (130-400); RBC Distribution Width 12.9 % (11.5-14.5); White Blood Cell (WBC) Count 13.5 thou/uL (4.8-10.8)
[2018-04-07 05:10] LABS: Anion Gap 15 mmol/L (10-20); BUN (Urea Nitrogen) 51 mg/dL (8.4-25.7); Calc. Creatinine Clearance 20 mL/min (70-130); Calcium 9.7 mg/dL (7.8-10.44); Carbon Dioxide 25 mmol/L (23-31); Chloride 100 mmol/L (98-107); Estimated GFR-MDRD 19; Glucose 102 mg/dL (83-110); Potassium 3.1 mmol/L (3.5-5.1); Sodium 137 mmol/L (136-145)
[2018-04-07] MEDS: Furosemide 40 MG/4 ML VIAL SLOW IVP SCH ×2 (05:43→13:38)
[2018-04-07] MEDS: Propofol 1,000 MG/100 ML VIAL IV PRN ×2 (05:43→17:40)
[2018-04-07 07:17] LABS: Actual Bicarbonate (HCO3a) 24.5 mEq/L (22-28); Base Excess (BEa) 1.3 mEq/L (-2.0 to +3.0); CO2 Tension 33.1 mmHg (35.0-45.0); Calcium, Ionized 1.16 mmol/L (1.12-1.30); Carboxyhemoglobin (COHb) 0.5 gm% (0.0-3.0); Hemoglobin (Hb) 8.1 g/dL (14.0-18.0); O2 Tension (PaO2) 91.3 mmHg (> 60.0); Potassium - ABG Lab 3.43 mmol/L (3.70-5.30); pH, Arterial 7.49 (7.35-7.45)
[2018-04-07 07:18] LABS: ALV-art Gradient 509.025 (0-20); Puncture Site RRA
--- NOTE | 2018-04-07 07:40 | OP ---
87-year-old gentleman with paroxysmal atrial fibrillation. DESCRIPTION OF PROCEDURE: The patient in the ICU was sedated with IV Versed. The patient was shocked with 120 joules of synchronized electricity. The patient went back and into atrial fibrillation. The patient was loaded with IV amiodarone. He was again shocked with 120 joules of synchronized electricity. Patient converted to normal sinus rhythm. IMPRESSION: Successful electrocardioversion. JAYSON
--- NOTE | 2018-04-07 08:09 | RAD ---
SINGLE VIEW CHEST: HISTORY: Ventilated patient with respiratory failure. COMPARISON: 04/06/2018 FINDINGS: A single view of the chest shows an enlarged but stable cardiomediastinal silhouette. The lines and tubes are unchanged in position. The patient is status post sternotomy. There are bilateral veil-li ke opacities, which appear to be worsening and may represent pleural effusions and/or infiltrates. IMPRESSION: Worsening bilateral pleural effusions with adjacent atelectasis versus infiltrates. POS: [facility]
--- NOTE | 2018-04-07 08:24 | PRG ---
DATE OF SERVICE: 04/07/2018 Thirty-five minutes critical care time. The patient remains intubated on mechanical ventilation. He is still requiring a great deal of venti latory support. PHYSICAL EXAMINATION: VITAL SIGNS: Temperature is 98.4, pulse 82, blood pressure 137/54, O2 sat 98%. Total intake for 24 hours 1113 mL, output 305 mL. NEUROLOGIC: He will awaken and follow commands. HEENT: Unremarkable. NECK: No JVD. LUNGS: Coarse breath sounds with crackles at both bases. CARDIOVASCULAR: S1, S2, irregularly irregular. ABDOMEN: Soft, nontender. EXTREMITIES: Edematous in the legs. LABORATORY DATA: Sodium 137, potassium 3.1, chloride 109, CO2 25, BUN 51, creatinine 3.1, glucose 10 2. White blood cell count 13.5, hemoglobin 7.3, hematocrit 21.1, platelet count 218. His chest x-ray continues to show bilateral infiltrates that are even worse than yesterday. ASSESSMENT: The patient is presenting with postop acute hypoxic respiratory failure, which is either secondary to fluid overload or perhaps acute respiratory distress syndrome or pneumonitis. He has n ot improved significantly in terms of oxygenation overnight and I am somewhat worried about the possi bility of nosocomial pneumonia. RECOMMENDATIONS: In addition to continuing diuresis, I would go ahead and empirically start him on antibiotics after cultures are drawn. I have adjusted some of his mechanical ventilation settings. He is not a candidate for weaning at this time.
[2018-04-07] MEDS: Aspirin 325 MG TAB PO SCH (09:17)
[2018-04-07] MEDS: Digoxin 0.5 MG/2 ML AMP SLOW IVP SCH (09:17)
[2018-04-07] MEDS: Atenolol 50 MG TAB PO SCH (09:18)
[2018-04-07] MEDS: Tamsulosin HCl 0.4 MG CAP PO SCH (09:18)
--- NOTE | 2018-04-07 09:49 | PRG ---
DATE OF SERVICE: 04/07/2018 SUBJECTIVE: Mr. Williamson is an 87-year-old white male, who underwent CABG and was seen by the Renal Service for his acute kidney injury that was hemodynamically mediated renal dysfunction. The patient 's respiratory status worsened. He is currently intubated. He is also currently on a diuretic regim en 60 mg IV q.12 hours. Patient is currently intubated. PHYSICAL EXAMINATION: VITAL SIGNS: Blood pressure is 144/62, heart rate 72, respiratory rate 16, pulse ox 97%. GENERAL: Sedated and intubated on ventilator support. SKIN: Adequate turgor. HEENT: He has slightly pale conjunctivae, anicteric sclerae. NECK: No neck mass, no carotid bruits, no JVD. CHEST: No deformities. LUNGS: Decreased breath sounds. HEART: Normal sinus rhythm. No murmur, no gallops, no rubs. ABDOMEN: Globular, soft, nontender, no masses. EXTREMITIES: No edema, no deformities. MEDICATIONS: 04/07/2018 - Reviewed. LABORATORY DATA: 04/07/2018 - White count 13.5, hemoglobin 7.3, sodium 137, potassium 3.1, chloride 100, carbon dioxide 25, BUN 51, creatinine 3.08, glucose 102, calcium 9.7. ASSESSMENT AND PLAN: 1. Acute kidney injury/chronic renal failure, fluctuating creatinine. Creatinine higher now at 3.08 . This may be a reflection of his congestive heart failure/current diuretic regimen. We will contin ue salt poor albumin. Continue current diuretic regimen. There is no indication for any emergent di alysis. 2. Anemia, p.r.n. blood transfusion. 3. Status post coronary artery bypass graft. Continue supportive care, stable and followed by Kalpesh robles.
[2018-04-07] MEDS ORDERED: Potassium Chloride 40 MEQ in Sodium Chloride 0.9% 250 ML 250 ML IVPB SCH (11:30)
[2018-04-07] MEDS: Cefepime 1 GM in Sodium Chloride 0.9% 100 ML IVPB SCH (12:39)
[2018-04-07] MEDS: Amiodarone HCl 450 MG in Dextrose 5% in Water 250 ML IVPB SCH (17:35)
[2018-04-07] MEDS: Acetaminophen 500 MG TAB PO PRN (17:45)
[2018-04-07] MEDS: Rosuvastatin 20 MG TAB PO SCH (22:13)
[2018-04-08] MEDS: Amiodarone HCl 450 MG in Dextrose 5% in Water 250 ML IVPB SCH ×3 (00:26→17:03)
[2018-04-08 05:01] LABS: #Eosinphils 0.1 thou/uL (0.0-0.7); #Lymphocytes 1.3 thou/uL (1.20-3.40); #Monocytes 0.9 thou/uL (0.11-0.59); #Neutrophils 8.4 thou/uL (1.40-6.50); %Basophils 0.2 % (0.0-1.0); %Eosinophils 0.7 % (0.0-10.0); %Lymphocytes 11.9 % (21.0-51.0); %Monocytes 8.3 % (0.0-10.0); %Neutrophils 78.9 % (42.0-75.0); Hemoglobin 6.6 g/dL (14.0-18.0); Mean Corpuscular HGB CONC 33.7 g/dL (32.0-36.0); Mean Corpuscular Hemoglobin 31.2 pg (27.0-31.0); Mean Corpuscular Volume 92.5 fL (78.0-98.0); Mean Platelet Volume 8.7 fL (7.4-10.4); Platelet Count 202 thou/uL (130-400); RBC Distribution Width 13.1 % (11.5-14.5); Red Blood Cell (RBC) Count 2.11 mill/uL (4.70-6.10); White Blood Cell (WBC) Count 10.7 thou/uL (4.8-10.8)
[2018-04-08 05:17] LABS: Anion Gap 13 mmol/L (10-20); BUN (Urea Nitrogen) 68 mg/dL (8.4-25.7); Calc. Creatinine Clearance 15 mL/min (70-130); Carbon Dioxide 26 mmol/L (23-31); Chloride 100 mmol/L (98-107); Estimated GFR-MDRD 14; Glucose 112 mg/dL (83-110); Potassium 3.3 mmol/L (3.5-5.1); Sodium 136 mmol/L (136-145)
[2018-04-08] MEDS: Furosemide 40 MG/4 ML VIAL SLOW IVP SCH (06:01)
--- NOTE | 2018-04-08 07:57 | PDOC.CTH ---
Cardiology Progress Note - Subjective Pt intubated, sedate. No pressors. On IV amiodarone. In afib, rate controlled. - Objective Vital Signs Temp Pulse Resp Pulse Ox 04/08/18 07:34 72 04/08/18 07:00 98.2 F 04/08/18 06:00 14 04/08/18 04:00 99.1 F 14 04/08/18 02:17 78 04/08/18 02:00 14 04/08/18 00:00 99.0 F 14 04/07/18 22:05 82 04/07/18 22:04 70 14 99 04/07/18 22:00 14 04/07/18 20:00 99.1 F 14 100 Admit Weight 178 lb Weight 169 lb 12.095 oz 04/07/18 04/08/18 04/09/18 06:59 06:59 05:59 Intake Total 1113.5 945 Output Total 3905 2155 125 Balance -2791.5 -1210 -125 - Physical Examination General/Neuro: NAD Neck: no JVD present Lungs: CTA, unlabored respirations Heart: other: (irr) Abdomen: NT/ND, soft Extremities: + femoral B - Telemetry Telemetry Rhythm: afib - Labs Result Diagrams: 04/08/18 04:50 04/08/18 04:50 - Assessment/Plan Respiratory failure CAD S/P CABG ?pneumonitis Acute kidney failure Afib s/p CV Anemia On amiodarone and dopamine May benefit from one unit of PRBC
[2018-04-08 07:58] LABS: Base Excess (BEa) 2.7 mEq/L (-2.0 to +3.0); CO2 Tension 33.6 mmHg (35.0-45.0); Carboxyhemoglobin (COHb) 1.8 gm% (0.0-3.0); Hemoglobin (Hb) 6.9 g/dL (14.0-18.0); O2 Tension (PaO2) 85.4 mmHg (> 60.0); Potassium - ABG Lab 3.11 mmol/L (3.70-5.30); pH, Arterial 7.51 (7.35-7.45)
[2018-04-08] MEDS: Atenolol 50 MG TAB PO SCH (08:42)
[2018-04-08] MEDS: Aspirin 325 MG TAB PO SCH (08:42)
[2018-04-08] MEDS: Tamsulosin HCl 0.4 MG CAP PO SCH (08:43)
[2018-04-08] MEDS: Digoxin 0.5 MG/2 ML AMP SLOW IVP SCH (08:43)
[2018-04-08] MEDS: Pantoprazole 40 MG VIAL IVP SCH (08:44)
[2018-04-08] MEDS: Potassium Chloride 10 MEQ in Premix Bag 1 BAG IVPB PRN (09:02)
[2018-04-08] MEDS: Cefepime 1 GM in Sodium Chloride 0.9% 100 ML IVPB SCH (10:14)
--- NOTE | 2018-04-08 10:55 | PRG ---
DATE OF SERVICE: 04/08/2018 SERVICE: Renal Medicine. SUBJECTIVE: Mr. Williamson is an 87-year-old white male with known history of chronic renal failure, hy pertension, and underwent CABG. His renal function is worsening during this hospitalization. He als o developed acute respiratory failure and currently on diuretics. His most recent creatinine is now 4. No other acute events noted. Cardiology and Surgery following. OBJECTIVE: VITAL SIGNS: Blood pressure is 113/50, heart rate 67, respiratory rate is 12, heart rate 72, pulse o x 100%. GENERAL: Noted to be sedated, intubated on ventilator support. SKIN: Adequate turgor. HEENT: He has pale conjunctivae, anicteric sclerae. NECK: No neck mass, no carotid bruits, no JVD. CHEST: No deformities. LUNGS: Decreased breath sounds. No wheezing, no crackles. HEART: Normal sinus rhythm. No murmur, no gallops or rubs. ABDOMEN: Globular, soft, nontender. EXTREMITIES: No edema. MEDICATIONS: Of 04/08/2018 was reviewed. LABORATORY DATA: Of 04/08/2018 showed white count of 10.7, hemoglobin 6.6. Sodium 136, potassium 3. 3, chloride 100, carbon dioxide 26, BUN 68, creatinine 4.07, GFR 14 mL per minute, glucose 102, calci um 9. ASSESSMENT AND PLAN: 1. Acute kidney injury on top of his chronic renal failure, worsening renal dysfunction. Initially, I feel that this is a superimposed hemodynamically mediated renal dysfunction. On 04/05/2018, renal ultrasound showed right renal cyst with a nonobstructing left renal calcification. My plan is to co ntinue current management. No indication for any emergent dialysis. We will discontinue furosemide temporarily to see if I can get some stabilization of the renal function. At the same time, continue to optimize hemodynamics. The patient has received salt poor albumin in the past. 2. Anemia. We will transfuse 1 unit of packed RBC. We will again review a urinalysis to see if the re is any superimposed acute tubular necrosis.
--- NOTE | 2018-04-08 11:28 | RAD ---
PORTABLE CHEST: HISTORY: Respiratory distress. COMPARISON: Prior day's study. FINDINGS: Endotracheal and NG tubes are in satisfactory [id number]. Right subclavian line is unchanged in posit ion Postop sternotomy changes again seen. There has been a definite improvement in the pulmonary ed gi change as compared to the prior examination. IMPRESSION: Improving pulmonary edema changes. POS: [facility]
[2018-04-08 12:38] LABS: Bilirubin Negative (Negative); Blood, Urine Negative (Negative); Clarity CLOUDY (Clear); Glucose, Urine (Dipstick) Negative (Negative); Leukocyte Negative (Negative); Nitrite Negative (Negative); Protein, Urine (Dipstick) Trace mg/dL (Neg-Trace); Specific Gravity, Urine 1.012 (1.002-1.036); Urobilinogen 0.2 mg/dL (0.2-1.0)
[2018-04-08] MEDS: Propofol 1,000 MG/100 ML VIAL IV PRN (12:40)
[2018-04-08] MEDS: hydrALAZINE 20 MG/ML VIAL SLOW IVP PRN (17:09)
--- NOTE | 2018-04-08 19:18 | PRG ---
DATE OF SERVICE: 04/08/2018 SUBJECTIVE: Jovani Williamson is stable overnight. Surprisingly, he has had dramatic improvement in his chest radiograph. PHYSICAL EXAMINATION: VITAL SIGNS: Blood pressure 137/47, heart rate 62, respiratory rate is 12. Intake and output is negative 1200 mL. LUNGS: Clear anteriorly. HEART: Regular rhythm. ABDOMEN: Soft. EXTREMITIES: Without asymmetry. LABORATORY DATA: PH 7.51, pCO2 33, pO2 85. Sodium 136, potassium 3.3, chloride 100, bicarbonate 26, BUN 68, creatinine 4.07. White count 10.7, hemoglobin 6.6. He has been transfused this morning, platelets 202,000. IMPRESSION: 1. Pulmonary edema. 2. Postop mechanical ventilation after coronary bypass grafting. 3. Acute on chronic kidney disease, may not tolerate a negative fluid balance, but he certainly will not wean with pulmonary edema. We will Continue to follow the other physicians caring for him. Critical care time was 30 minutes. [facility]
[2018-04-08] MEDS: Rosuvastatin 20 MG TAB PO SCH (21:01)
[2018-04-08] MEDS: Acetaminophen 500 MG TAB PO PRN (21:02)
[2018-04-09] MEDS: Amiodarone HCl 450 MG in Dextrose 5% in Water 250 ML IVPB SCH ×2 (01:22→15:29)
[2018-04-09 05:19] LABS: #Eosinphils 0.1 thou/uL (0.0-0.7); #Lymphocytes 0.9 thou/uL (1.20-3.40); %Basophils 0.3 % (0.0-1.0); %Lymphocytes 7.2 % (21.0-51.0); %Monocytes 8.2 % (0.0-10.0); %Neutrophils 83.3 % (42.0-75.0); Hemoglobin 9.6 g/dL (14.0-18.0); Mean Corpuscular HGB CONC 33.6 g/dL (32.0-36.0); Mean Corpuscular Hemoglobin 30.2 pg (27.0-31.0); Mean Corpuscular Volume 89.9 fL (78.0-98.0); Mean Platelet Volume 8.3 fL (7.4-10.4); Platelet Count 236 thou/uL (130-400); RBC Distribution Width 13.6 % (11.5-14.5); Red Blood Cell (RBC) Count 3.16 mill/uL (4.70-6.10); White Blood Cell (WBC) Count 12.1 thou/uL (4.8-10.8)
[2018-04-09 05:28] LABS: Anion Gap 16 mmol/L (10-20); BUN (Urea Nitrogen) 79 mg/dL (8.4-25.7); Calc. Creatinine Clearance 14 mL/min (70-130); Calcium 9.2 mg/dL (7.8-10.44); Carbon Dioxide 25 mmol/L (23-31); Chloride 99 mmol/L (98-107); Estimated GFR-MDRD 14; Glucose 100 mg/dL (83-110); Sodium 137 mmol/L (136-145)
[2018-04-09] MEDS: Propofol 1,000 MG/100 ML VIAL IV PRN ×2 (05:51→16:53)
[2018-04-09] MEDS ORDERED: Potassium Chloride 20 MEQ in Premix Bag 1 BAG IVPB SCH ×2 (08:30→08:45)
[2018-04-09 08:41] LABS: Actual Bicarbonate (HCO3a) 24.6 mEq/L (22-28); CO2 Tension 35.4 mmHg (35.0-45.0); Calcium, Ionized 1.14 mmol/L (1.12-1.30); Carboxyhemoglobin (COHb) 0.9 gm% (0.0-3.0); Hemoglobin (Hb) 10.4 g/dL (14.0-18.0); O2 Tension (PaO2) 94.7 mmHg (> 60.0); Potassium - ABG Lab 3.01 mmol/L (3.70-5.30); pH, Arterial 7.46 (7.35-7.45)
[2018-04-09 08:43] LABS: Puncture Site RRA
[2018-04-09] MEDS: Pantoprazole 40 MG VIAL IVP SCH (08:47)
[2018-04-09] MEDS: Aspirin 325 MG TAB PO SCH (08:48)
[2018-04-09] MEDS: Tamsulosin HCl 0.4 MG CAP PO SCH (08:48)
[2018-04-09] MEDS: Atenolol 50 MG TAB PO SCH (08:48)
[2018-04-09] MEDS ORDERED: Albumin 25% 25 GM/100 ML BOT IVPB ONE (09:17)
[2018-04-09] MEDS ORDERED: Furosemide 40 MG/4 ML VIAL SLOW IVP SCH (09:30)
[2018-04-09] MEDS: Cefepime 1 GM in Sodium Chloride 0.9% 100 ML IVPB SCH (09:48)
--- NOTE | 2018-04-09 09:49 | PRG ---
DATE OF SERVICE: 04/09/2018 SERVICE: Renal Medicine. SUBJECTIVE: Mr. Williamson is an 87-year-old white male who underwent CABG recently. We are following this patient for his acute kidney injury on top of his chronic renal failure. His hospitalization wa s also marked by acute respiratory failure and for that reason, he has been intubated. Chest x-ray r eviewed yesterday showed improving CHF. His urine output is actually much improved in the last sever al days. He is averaging about 2.5 liters of fluid per day. Our plan is to give him his Lasix due t o the worsening of renal dysfunction and was placed on hold yesterday. My plan is to give him a 1 ti me dose of Lasix 40 mg IV prior to the said planned extubation. I have resumed back salt poor albumi n at 25 grams IV q.6 hours for another 3 days. OBJECTIVE: VITAL SIGNS: Blood pressure is 127/53, heart rate 60, respiratory rate 10, O2 sat 99%. GENERAL: Patient is sedated, intubated on ventilator support. SKIN: Adequate turgor. HEENT: Slightly pale conjunctivae, anicteric sclerae. NECK: No neck mass, no carotid bruits, no JVD. CHEST: No deformities. LUNGS: Decreased breath sounds. HEART: Normal sinus rhythm. No murmur, no gallops, no rubs. ABDOMEN: Globular, soft, nontender, no masses. EXTREMITIES: No edema. MEDICATIONS: Of 04/09/2018 was reviewed. LABORATORY DATA: Of 04/09/2018, white count 12.1, hemoglobin 9.6. Sodium 137, potassium 3, chloride 99, carbon dioxide 25, BUN 79, creatinine 4.08, glucose 100, calcium 9.2. Urinalysis of 04/08/2018, specific gravity 1.012. No pigmented granular cast. ASSESSMENT AND PLAN: 1. Acute kidney injury on top of his chronic renal failure, superimposed hemodynamically mediated re nal dysfunction. Continue supportive care. Continue to optimize hemodynamics. Lasix have been adju sted downwards. He will get a 1 time dose of Lasix 40 mg IV x1 dose. In addition, I have resumed ba ck salt poor albumin 25 grams IV q.6 for another 3 days. There is no indication for any emergent hem odialysis. His renal function is stable. Creatinine in the last 24 hours remains unchanged. Creati nine is noted at 4.08. 2. Congestive heart failure, clinically improving - I suggested radiographic improvement. Give one time dose of Lasix 40 mg IV prior to the planned extubation. 3. Congestive heart failure - p.r.n. Lasix. 4. Status post coronary artery bypass graft. Supportive care. Cardiothoracic Surgery following.
--- NOTE | 2018-04-09 09:56 | PDOC.CTH ---
Cardiology Progress Note - Subjective Pt continues to be in afib. Pt receiving dioxin daily. Increased creatinine. On IV amiodarone - Objective Vital Signs Temp Pulse Resp BP Pulse Ox 04/09/18 08:48 58 L 127/53 L 04/09/18 08:26 60 127/63 04/09/18 08:00 11 L 100 04/09/18 06:00 11 L 04/09/18 04:00 98.2 F 11 L 04/09/18 02:37 57 L 138/56 L 04/09/18 02:00 11 L 04/09/18 00:00 98.8 F 11 L Admit Weight 178 lb Weight 169 lb 5.04 oz 04/08/18 04/09/18 04/10/18 07:59 06:59 06:59 Intake Total Output Total 420 Balance -420 - Physical Examination General/Neuro: NAD Neck: no JVD present Lungs: unlabored respirations Heart: other: (IRR) - Telemetry Telemetry Rhythm: IRR - Labs Result Diagrams: 04/09/18 05:00 04/09/18 05:00 - Assessment/Plan Respiratory failure CAD S/P CABG ?pneumonitis Acute kidney failure Afib s/p CV Anemia Anemia improved after recent transfusion continue with mechanical ventilation nephrology following on Abx On amiodarone and dopamine Pt back in Afib Stop digoxin Check dig level
--- NOTE | 2018-04-09 10:17 | RAD ---
PORTABLE CHEST: HISTORY: Respiratory distress. COMPARISON: Prior day's exam. FINDINGS: Endotracheal and NG tubes are in satisfactory position. Heart size is enlarged with postop sternotom y changes. The interstitial alveolar lung changes which are in a more perihilar and lower lobe distr ibution are not improved and appear slightly more pronounced as compared to the prior exam. This cou ld represent some worsening edema or ARDS-type change. IMPRESSION: Some worsening to the interstitial and alveolar lung change. POS: [facility]
[2018-04-09] MEDS ORDERED: Sodium Bicarbonate Tab 325 MG TAB PER TUBE PRN (10:49)
[2018-04-09] MEDS ORDERED: Pancrelipase DR 12000 1 CAP PER TUBE PRN (10:49)
[2018-04-09] MEDS: Digoxin 0.5 MG/2 ML AMP SLOW IVP SCH (11:22)
[2018-04-09] MEDS: Albumin 25% 25 GM/100 ML BOT IVPB SCH ×2 (11:23→17:40)
[2018-04-09 11:59] LABS: Digoxin 1.74 ng/mL (0.8-2.0)
--- NOTE | 2018-04-09 16:56 | PRG ---
DATE OF SERVICE: 04/09/2018 SUBJECTIVE: Jovani Williamson remains sedated for mechanical ventilation. He had recurrence of his bilateral infiltrates on today's film after Lasix was held yesterday. This is surprising since he is still in a negative fluid balance (negative 553). OBJECTIVE: VITAL SIGNS: Blood pressure 145/61, heart rate 65, respiratory rates in the teens. RESPIRATORY: His lungs are remarkable for mild rhonchi anteriorly. HEART: Regular rhythm. ABDOMEN: Soft. LABORATORY DATA: White count 12.1, hemoglobin 9.6, platelets 236,000. Sodium 137, potassium 3, chloride 99, bicarbonate 25, BUN 79, creatinine 4.08. PH 7.46, CO2 35 and pO2 94. IMPRESSION: 1. Pulmonary edema after bypass surgery (? acute respiratory distress syndrome) . Plan to continue supportive care with gentle diuresis. Monitoring renal function. 2. Chronic kidney disease, that is severe. His admission creatinine was 1.44 at its lowest point, so hopefully will have significant recovery of his renal function. CRITICAL CARE TIME: 30 minutes. [facility]
[2018-04-09] MEDS: Rosuvastatin 20 MG TAB PO SCH (21:19)
[2018-04-10] MEDS: Albumin 25% 25 GM/100 ML BOT IVPB SCH ×3 (00:10→11:09)
[2018-04-10 05:08] LABS: #Eosinphils 0.3 thou/uL (0.0-0.7); #Lymphocytes 0.9 thou/uL (1.20-3.40); #Monocytes 0.9 thou/uL (0.11-0.59); #Neutrophils 7.9 thou/uL (1.40-6.50); %Basophils 0.2 % (0.0-1.0); %Eosinophils 2.8 % (0.0-10.0); %Lymphocytes 8.9 % (21.0-51.0); %Monocytes 8.7 % (0.0-10.0); %Neutrophils 79.4 % (42.0-75.0); Hemoglobin 8.9 g/dL (14.0-18.0); Mean Corpuscular HGB CONC 33.6 g/dL (32.0-36.0); Mean Corpuscular Hemoglobin 30.3 pg (27.0-31.0); Mean Corpuscular Volume 90.1 fL (78.0-98.0); Mean Platelet Volume 8.4 fL (7.4-10.4); Platelet Count 246 thou/uL (130-400); RBC Distribution Width 13.6 % (11.5-14.5); Red Blood Cell (RBC) Count 2.92 mill/uL (4.70-6.10); White Blood Cell (WBC) Count 9.9 thou/uL (4.8-10.8)
[2018-04-10 05:14] LABS: Anion Gap 15 mmol/L (10-20); BUN (Urea Nitrogen) 100 mg/dL (8.4-25.7); Calc. Creatinine Clearance 16 mL/min (70-130); Calcium 9.5 mg/dL (7.8-10.44); Carbon Dioxide 29 mmol/L (23-31); Chloride 99 mmol/L (98-107); Estimated GFR-MDRD 16; Glucose 122 mg/dL (83-110); Sodium 140 mmol/L (136-145)
[2018-04-10 05:17] LABS: Potassium 2.9 mmol/L (3.5-5.1)
[2018-04-10] MEDS: Amiodarone HCl 450 MG in Dextrose 5% in Water 250 ML IVPB SCH ×2 (06:39→21:42)
[2018-04-10] MEDS: Potassium Chloride 10 MEQ in Premix Bag 1 BAG IVPB PRN (06:39)
[2018-04-10] MEDS ORDERED: Potassium Chloride 30 MEQ in Sodium Chloride 0.9% 250 ML 250 ML IVPB SCH (06:45)
[2018-04-10 07:20] LABS: Actual Bicarbonate (HCO3a) 27.7 mEq/L (22-28); Base Excess (BEa) 4.1 mEq/L (-2.0 to +3.0); CO2 Tension 37.3 mmHg (35.0-45.0); Calcium, Ionized 1.12 mmol/L (1.12-1.30); Carboxyhemoglobin (COHb) 1.1 gm% (0.0-3.0); Hemoglobin (Hb) 8.5 g/dL (14.0-18.0); O2 Tension (PaO2) 72.1 mmHg (> 60.0); Potassium - ABG Lab 2.94 mmol/L (3.70-5.30); pH, Arterial 7.49 (7.35-7.45)
[2018-04-10 07:26] LABS: Puncture Site RRA
[2018-04-10 07:27] LABS: ALV-art Gradient 166.475 (0-20)
[2018-04-10] MEDS: Tamsulosin HCl 0.4 MG CAP PO SCH (07:57)
[2018-04-10] MEDS: Pantoprazole 40 MG VIAL IVP SCH (07:57)
[2018-04-10] MEDS: Aspirin 325 MG TAB PO SCH (07:57)
--- NOTE | 2018-04-10 08:06 | PRG ---
DATE OF SERVICE: 04/10/2018 Thirty-five minutes critical care time. This patient remains intubated on mechanical ventilation. He will wake up and follow all commands fo r me without difficulty. PHYSICAL EXAMINATION: VITAL SIGNS: Temperature 99.0 with a T-max of 100.0, pulse 55, blood pressure 147/76. He is current ly on an amiodarone drip. Twenty-four hour intake was 1877, output 3605. HEENT: Unremarkable. NECK: No JVD. LUNGS: Clear anteriorly. CARDIOVASCULAR: S1, S2, slightly bradycardic. ABDOMEN: Soft, nontender. EXTREMITIES: No edema. LABORATORY DATA: White blood cell count 9.9, hematocrit 26.3, platelet count 246, pH 7.49, pCO2 37, pO2 of 72 on SIMV rate 11, FiO2 40%, pressure control ventilation with PEEP of 10. Sodium 140, potas sium 3.9, chloride 99, CO2 29, BUN 100, creatinine 3.7, glucose 122. ASSESSMENT: 1. Post-coronary artery bypass grafting surgery with acute hypoxic respiratory failure requiring mec hanical ventilation 2. Atrial fibrillation. PLAN: 1. He is continuing diuresis per Nephrology. 2. He has improved dramatically from a pulmonary standpoint and I will put him on spontaneous breath ing trial today and see how he does. I think he is probably a good candidate for extubation to high flow oxygen. 3. His potassium is being replaced. 4. He continues on antibiotics for the fever he had in the postop period.
[2018-04-10] MEDS: hydrALAZINE 20 MG/ML VIAL SLOW IVP PRN (08:44)
[2018-04-10] MEDS ORDERED: Amlodipine 5 MG TAB PO SCH ×2 (09:00→10:30)
[2018-04-10] MEDS ORDERED: Furosemide 40 MG/4 ML VIAL SLOW IVP SCH ×2 (09:00→12:45)
[2018-04-10] MEDS: Cefepime 1 GM in Sodium Chloride 0.9% 100 ML IVPB SCH (09:12)
--- NOTE | 2018-04-10 09:31 | RAD ---
PORTABLE CHEST: HISTORY: Respiratory distress. COMPARISON: Prior day's study. FINDINGS: Endotracheal, NG tube, and right subclavian line are all unchanged in satisfactory position. The int erstitial alveolar lung changes show some subtle improvement as compared to the prior examination. IMPRESSION: Slight improvement to the parenchymal lung change. POS: [facility]
--- NOTE | 2018-04-10 09:41 | PRG ---
DATE OF SERVICE: 04/10/2018 SUBJECTIVE: Mr. Williamson is an 87-year-old white male who recently underwent a CABG. He is being fol lowed up by the Renal Service for his acute kidney injury on top of his chronic renal failure. He vo ices no new complaints. He is diuresing well. He is getting p.r.n. furosemide. Renal function ____ _ tolerating said treatment. I have restarted him back on his albumin infusion. No other complaints . The patient is scheduled for extubation today. OBJECTIVE: VITAL SIGNS: Blood pressure 168/57, heart rate 60, respiratory rate 24, pulse ox 97%, temperature 99 .1. GENERAL: Awake, alert, intubated on ventilator support. SKIN: Adequate turgor. HEENT: Slightly pale conjunctivae, anicteric sclerae. NECK: No neck mass, no carotid bruits, no JVD. CHEST: No deformities. LUNGS: Decreased breath sounds. HEART: Normal sinus rhythm. No murmur, no gallops, no rubs. ABDOMEN: Globular, soft, nontender. No masses. EXTREMITIES: No edema. MEDICATIONS: Medications of 04/10/2018 was reviewed. LABORATORY DATA: Laboratories of 04/10/2018: White count 9.9, hemoglobin 8.9. Sodium 140, potassiu m 2.9, chloride 99, carbon dioxide 29, BUN 100, creatinine 3.72, glucose 122, calcium 9.5. ASSESSMENT AND PLAN: 1. Acute kidney injury/chronic renal failure, stabilizing renal function. Creatinine noted at 3.7 a nd yesterday this was 4.08. He has been started on salt-poor albumin. He is getting p.r.n. diuresis to help with the CHF. Review of yesterday's chest x-ray showed increased lung markings with mild co ngestive heart failure. 2. Status post coronary artery bypass grafting, stable, doing well. 3. Hypokalemia. P.r.n. potassium replacement. 4. Anemia. Continue to observe p.r.n. blood transfusion. Continue to check base met and CBC in a.m .
[2018-04-10] MEDS ORDERED: Morphine 2 MG/ML SYRINGE SLOW IVP PRN (10:45)
[2018-04-10] MEDS ORDERED: hydrALAZINE 20 MG/ML VIAL SLOW IVP PRN (12:00)
[2018-04-10] MEDS: Amlodipine 5 MG TAB PO SCH (17:11)
[2018-04-10] MEDS: Rosuvastatin 20 MG TAB PO SCH (21:41)
[2018-04-11 05:21] LABS: #Eosinphils 0.1 thou/uL (0.0-0.7); #Lymphocytes 1.2 thou/uL (1.20-3.40); #Monocytes 1.5 thou/uL (0.11-0.59); #Neutrophils 13.6 thou/uL (1.40-6.50); %Eosinophils 0.7 % (0.0-10.0); %Lymphocytes 7.2 % (21.0-51.0); %Monocytes 9.1 % (0.0-10.0); %Neutrophils 82.9 % (42.0-75.0); Hemoglobin 11.2 g/dL (14.0-18.0); Mean Corpuscular HGB CONC 33.2 g/dL (32.0-36.0); Mean Corpuscular Volume 90.6 fL (78.0-98.0); Mean Platelet Volume 7.8 fL (7.4-10.4); Platelet Count 373 thou/uL (130-400); RBC Distribution Width 13.9 % (11.5-14.5); Red Blood Cell (RBC) Count 3.73 mill/uL (4.70-6.10); White Blood Cell (WBC) Count 16.3 thou/uL (4.8-10.8)
[2018-04-11 05:25] LABS: Anion Gap 16 mmol/L (10-20); BUN (Urea Nitrogen) 98 mg/dL (8.4-25.7); Calc. Creatinine Clearance 19 mL/min (70-130); Calcium 10.8 mg/dL (7.8-10.44); Carbon Dioxide 34 mmol/L (23-31); Chloride 93 mmol/L (98-107); Estimated GFR-MDRD 19; Glucose 140 mg/dL (83-110); Sodium 141 mmol/L (136-145)
[2018-04-11 05:28] LABS: Potassium 2.4 mmol/L (3.5-5.1)
[2018-04-11] MEDS ORDERED: Potassium Chloride 40 MEQ in Premix Bag 1 BAG IVPB SCH (06:15)
[2018-04-11] MEDS ORDERED: Nitroglycerin 0.4 MG TAB (25 Tab Bottle) SL PRN (07:23)
[2018-04-11] MEDS ORDERED: Mineral Oil ENEMA PR PRN (07:23)
[2018-04-11] MEDS ORDERED: Insulin Regular 300 UNITS/3 ML VIAL SC PRN (07:38)
[2018-04-11] MEDS ORDERED: Dextrose 5% in Water 1,000 ML IV PRN (07:38)
[2018-04-11] MEDS ORDERED: Dextrose 50% Abboject 50 ML SYRINGE SLOW IVP PRN (07:38)
--- NOTE | 2018-04-11 07:56 | PRG ---
DATE OF SERVICE: 04/11/2018 The patient is doing better. He is off the high flow nasal cannula. Not complaining of shortness of breath. PHYSICAL EXAMINATION: VITAL SIGNS: Temperature is 98.1, pulse 92, blood pressure is 150/58. 24 hour intake 1250, output 4 820. HEENT: Unremarkable. NECK: No JVD. LUNGS: Clear anteriorly and posteriorly. CARDIAC: S1 and S2 regular. ABDOMEN: Soft. EXTREMITIES: No edema. LABORATORY DATA: White blood cell count 15.3, hematocrit 30.8, platelet count 373. Sodium 141, pota ssium 3.4, chloride 93, CO2 of 34, BUN 98, creatinine 3.08, glucose 140. Chest x-ray is clear. Calc ium level 10.8. ASSESSMENT: 1. Postoperative respiratory failure, now resolving. 2. Severe hyperkalemia, probably from diuresis. PLAN: The diuretics are being held today. It sounds like he is being transferred to the floor. Pot assium is being replaced currently. He probably needs to have a repeat potassium level this afternoo n if it has not already been ordered.
[2018-04-11] MEDS ORDERED: Heparin 5,000 UNITS/ML VIAL SC SCH (09:00)
[2018-04-11] MEDS: Cefepime 1 GM in Sodium Chloride 0.9% 100 ML IVPB SCH (09:17)
[2018-04-11] MEDS: Tamsulosin HCl 0.4 MG CAP PO SCH (09:18)
[2018-04-11] MEDS: Amlodipine 5 MG TAB PO SCH (09:18)
[2018-04-11] MEDS: Aspirin 81 mg Enteric Coated Tablet PO SCH (09:18)
[2018-04-11] MEDS: Amiodarone 200 MG TAB PO SCH ×3 (09:18→20:15)
[2018-04-11] MEDS: Famotidine 20 MG TAB PO SCH (09:18)
[2018-04-11] MEDS: Potassium Chloride 10 MEQ TAB PO SCH ×2 (09:19→17:23)
--- NOTE | 2018-04-11 09:23 | PRG ---
DATE OF SERVICE: 04/11/2018 SUBJECTIVE: Mr. Williamson is an 87-year-old white male, who underwent CABG due to significant coronar y artery disease and was seen by the Renal Service for his acute kidney injury. The feeling was that he may have a superimposed hemodynamically mediated renal dysfunction for the worsening renal dysfun ction. He also went into acute respiratory failure and was intubated. He is currently extubated. Peter evans is feeling better. Her CHF is actually much improved. He has diuresed about 4.8 liters in the las t 24 hours. PHYSICAL EXAMINATION: VITAL SIGNS: Blood pressure is 168/58 with a heart rate of 93, respiratory rate 22, O2 sat is 100%. GENERAL: Awake, sitting comfortable, not in overt distress. SKIN: Adequate turgor. HEENT: He has pinkish conjunctivae, anicteric sclerae. NECK: No neck mass, no carotid bruits, no JVD. CHEST: No deformities. LUNGS: Decreased breath sounds. HEART: Normal sinus rhythm. No murmur, no gallops, no rubs. ABDOMEN: Globular, soft, nontender, no masses. EXTREMITIES: No edema, no deformities. MEDICATIONS: 04/11/2018 - Reviewed. LABORATORY: 04/11/2018 - White count 16.3, hemoglobin 11.2. Sodium 141, potassium 2.4, chloride 93, carbon dioxide 34, BUN 98, creatinine 3.08, GFR 19 mL per minute. Calcium 10.3. Hemoglobin 11.2. ASSESSMENT AND PLAN: 1. Acute kidney injury on top of his chronic renal failure, stabilizing renal function. Due to the urine output 4.8 liters we will hold off any diuretics for today. 2. Hypokalemia, p.r.n. potassium replacement. 3. Congestive heart failure, much improved. Status post extubation, doing well. 4. Status post coronary artery bypass graft, stable. Cardiology is following. Overall I agree with current management.
[2018-04-11] MEDS: Apixaban 2.5 MG TAB PO SCH ×2 (09:31→20:15)
--- NOTE | 2018-04-11 09:43 | RAD ---
CHEST ONE VIEW PORTABLE: History: 87-year-old male with history of respiratory insufficiency. Comparison: 04-10-18 FINDINGS: The NG tube and endotracheal tube have been removed. Right subclavian catheter remains in place. Debi tor leads overlie the chest. There is cardiomegaly with some bilateral vascular congestion but showin g improvement from the prior study. Left pleural effusion with some increased opacity in the left ret rocardiac region. IMPRESSION: Improving vascular congestion. Left pleural effusion with increased density in the left retrocardiac region. Overall, however, showing minimal improvement. No significant new process. POS: [facility]
[2018-04-11 15:40] LABS: Potassium 2.9 mmol/L (3.5-5.1)
[2018-04-11] MEDS: hydrALAZINE 20 MG/ML VIAL SLOW IVP PRN (17:24)
[2018-04-11] MEDS ORDERED: Potassium Chloride 20 MEQ TAB PO SCH (19:00)
[2018-04-11] MEDS: diphenhydrAMINE 50 MG CAP PO PRN (20:15)
[2018-04-11] MEDS: Nystatin Powder 15 GM BOT TOP SCH (20:15)
[2018-04-11] MEDS: Rosuvastatin 20 MG TAB PO SCH (20:15)
[2018-04-12] MEDS: hydrALAZINE 20 MG/ML VIAL SLOW IVP PRN (04:26)
[2018-04-12 05:55] LABS: #Eosinphils 0.1 thou/uL (0.0-0.7); #Lymphocytes 1.6 thou/uL (1.20-3.40); #Monocytes 1.7 thou/uL (0.11-0.59); #Neutrophils 12.6 thou/uL (1.40-6.50); %Eosinophils 0.8 % (0.0-10.0); %Lymphocytes 10.1 % (21.0-51.0); %Monocytes 10.5 % (0.0-10.0); %Neutrophils 78.6 % (42.0-75.0); Hemoglobin 11.1 g/dL (14.0-18.0); Mean Corpuscular HGB CONC 32.3 g/dL (32.0-36.0); Mean Corpuscular Hemoglobin 29.4 pg (27.0-31.0); Mean Corpuscular Volume 91.2 fL (78.0-98.0); Mean Platelet Volume 8.3 fL (7.4-10.4); Platelet Count 369 thou/uL (130-400); RBC Distribution Width 13.7 % (11.5-14.5); Red Blood Cell (RBC) Count 3.76 mill/uL (4.70-6.10); White Blood Cell (WBC) Count 16.1 thou/uL (4.8-10.8)
[2018-04-12 06:11] LABS: Anion Gap 19 mmol/L (10-20); BUN (Urea Nitrogen) 92 mg/dL (8.4-25.7); Calc. Creatinine Clearance 21 mL/min (70-130); Calcium 10.1 mg/dL (7.8-10.44); Carbon Dioxide 26 mmol/L (23-31); Chloride 97 mmol/L (98-107); Estimated GFR-MDRD 23; Glucose 121 mg/dL (83-110); Sodium 139 mmol/L (136-145)
[2018-04-12 06:16] LABS: Potassium 2.9 mmol/L (3.5-5.1)
[2018-04-12] MEDS ORDERED: Potassium Chloride 20 MEQ TAB PO SCH (06:30)
[2018-04-12] MEDS ORDERED: Sodium Chloride 0.9% 10 ML ONE ×2 (08:18→09:52)
[2018-04-12] MEDS: Amlodipine 5 MG TAB PO SCH (08:32)
[2018-04-12] MEDS: Amiodarone 200 MG TAB PO SCH ×3 (08:32→20:04)
[2018-04-12] MEDS: Cefdinir 300 MG CAP PO SCH (08:33)
[2018-04-12] MEDS: Famotidine 20 MG TAB PO SCH (08:33)
[2018-04-12] MEDS: Potassium Chloride 10 MEQ TAB PO SCH ×2 (08:34→17:31)
[2018-04-12] MEDS: Tamsulosin HCl 0.4 MG CAP PO SCH (08:34)
[2018-04-12] MEDS: Apixaban 2.5 MG TAB PO SCH ×2 (08:34→20:04)
[2018-04-12] MEDS: Finasteride 5 MG TAB PO SCH (08:34)
[2018-04-12] MEDS: Aspirin 81 mg Enteric Coated Tablet PO SCH (08:34)
[2018-04-12] MEDS: Polyethylene Glycol 3350 17 GM Packet PO SCH (08:35)
[2018-04-12] MEDS ORDERED: Furosemide 40 MG/4 ML VIAL SLOW IVP SCH (09:00)
--- NOTE | 2018-04-12 09:41 | PRG ---
DATE OF SERVICE: 04/12/2018 The patient is doing well. He is out on telemetry today. PHYSICAL EXAMINATION: VITAL SIGNS: Temperature 97.8, pulse 89, respirations 20, O2 sat 92%, blood pressure 182/86. HEENT: Unremarkable. NECK: No JVD. CHEST: Clear anteriorly. CARDIOVASCULAR: S1 and S2 regular. ABDOMEN: Soft. EXTREMITIES: No edema. LABORATORY DATA: Sodium 139, potassium 2.9, chloride 97, CO2 26, BUN 92, creatinine 2.6, glucose 121 . White blood cell count 16.1, hematocrit 34.3, platelet count 369. ASSESSMENT: 1. Postoperative respiratory failure. 2. Renal insufficiency which is better. 3. Status post coronary bypass grafting surgery. 4. Hypokalemia. PLAN: 1. Replace potassium. 2. Change to oral antibiotics. 3. Increase activity as tolerated. 4. He would be a good candidate for rehab placement.
[2018-04-12] MEDS: hydrOXYzine Pamoate 25 mg Capsule PO SCH ×3 (09:55→20:04)
--- NOTE | 2018-04-12 10:24 | PRG ---
DATE OF SERVICE: 04/12/2018 SUBJECTIVE: Mr. Williamson is an 87-year-old white male with known history of chronic renal failure, un derwent CABG, developed acute respiratory failure and acute kidney injury. We are following him up f or his acute kidney injury. Renal function has been slowly improving. He has a superimposed hemodyn amically-mediated renal dysfunction. His CHF is much improved. My plan is to give him a 1-time dose of Lasix at 40 mg IV. No other complaints, no chest pain, no shortness of breath. OBJECTIVE: VITAL SIGNS: Blood pressure is 165/84, heart rate 82, respiratory rate 19, temperature 98, pulse ox 98%. GENERAL EXAM: Awake, alert, comfortable, not in distress. SKIN: Adequate turgor. HEENT: Pinkish conjunctivae, anicteric sclerae. NECK: No neck mass, no carotid bruits, no JVD. CHEST: Positive for midline surgical scar. LUNGS: Clear breath sounds. No wheezing, no crackles. HEART: Normal sinus rhythm. No murmur, no gallops, no rubs. ABDOMEN: Globular, soft, nontender, no masses. EXTREMITIES: No edema, no deformities. Medications of 04/12/2018 were reviewed. LABORATORY DATA: Laboratories of 04/12/2018, white count 16.1, hemoglobin 11.1. Sodium 139, potassi um 2.9, chloride 97, carbon dioxide 26, BUN is 92, creatinine 2.64, glucose 121, calcium 10.1. ASSESSMENT AND PLAN: 1. Acute kidney injury/chronic renal failure, improving renal function. Creatinine today is much im proved at 2.64. Please note, this peaks at a value of 4.08. He had a superimposed hemodynamically-m ediated renal dysfunction. Continue supportive care. 2. Status post congestive heart failure - patient had a decreased urine output in the last 24 hours. Lasix 40 mg IV x1 dose will be given. 3. Hypokalemia, p.r.n. potassium supplementation. Consider starting KCl 40 mEq tab daily. 4. Status post coronary artery bypass grafting, doing well. Surgery is following. Recheck CBC and base met in a.m.
[2018-04-12] MEDS: NIFEdipine XL 60 MG TAB PO SCH (11:25)
[2018-04-12] MEDS: Nystatin Powder 15 GM BOT TOP SCH ×2 (11:26→20:05)
[2018-04-12] MEDS: Rosuvastatin 20 MG TAB PO SCH (20:05)
[2018-04-12] MEDS: diphenhydrAMINE 50 MG CAP PO PRN (20:05)
[2018-04-13 05:23] LABS: Hemoglobin 10.9 g/dL (14.0-18.0); Platelet Count 407 thou/uL (130-400)
[2018-04-13 05:38] LABS: Anion Gap 16 mmol/L (10-20); BUN (Urea Nitrogen) 97 mg/dL (8.4-25.7); Calc. Creatinine Clearance 19 mL/min (70-130); Calcium 10.1 mg/dL (7.8-10.44); Carbon Dioxide 31 mmol/L (23-31); Chloride 94 mmol/L (98-107); Estimated GFR-MDRD 21; Glucose 121 mg/dL (83-110); Sodium 138 mmol/L (136-145)
[2018-04-13 05:42] LABS: Potassium 2.8 mmol/L (3.5-5.1)
[2018-04-13 05:46] LABS: Band 1 % (5-11); Hemoglobin 10.8 g/dL (14.0-18.0); Lymphocytes 11 % (21-51); MDiff Complete? YES; Mean Corpuscular HGB CONC 33.3 g/dL (32.0-36.0); Mean Corpuscular Hemoglobin 30.3 pg (27.0-31.0); Mean Corpuscular Volume 91.1 fL (78.0-98.0); Mean Platelet Volume 8.2 fL (7.4-10.4); Monocytes 6 % (0-10); Neutrophil 81 % (42-75); Platelet Count 404 thou/uL (130-400); RBC Distribution Width 13.8 % (11.5-14.5); Reactive Lymphocytes 1 % (0-10); Red Blood Cell (RBC) Count 3.57 mill/uL (4.70-6.10); White Blood Cell (WBC) Count 20.6 thou/uL (4.8-10.8)
[2018-04-13] MEDS: Potassium Chloride 10 MEQ TAB PO SCH (08:36)
[2018-04-13] MEDS: Potassium Chloride 20 MEQ TAB PO SCH (08:37)
[2018-04-13] MEDS: Amiodarone 200 MG TAB PO SCH ×3 (08:38→20:20)
[2018-04-13] MEDS: Famotidine 20 MG TAB PO SCH (08:38)
[2018-04-13] MEDS: Aspirin 81 mg Enteric Coated Tablet PO SCH (08:38)
[2018-04-13] MEDS: Tamsulosin HCl 0.4 MG CAP PO SCH (08:38)
[2018-04-13] MEDS: hydrOXYzine Pamoate 25 mg Capsule PO SCH ×3 (08:38→20:20)
[2018-04-13] MEDS: Cefdinir 300 MG CAP PO SCH (08:38)
[2018-04-13] MEDS: Finasteride 5 MG TAB PO SCH (08:39)
[2018-04-13] MEDS: Polyethylene Glycol 3350 17 GM Packet PO SCH (08:39)
[2018-04-13] MEDS: Apixaban 2.5 MG TAB PO SCH ×2 (08:39→20:20)
[2018-04-13] MEDS: Nystatin Powder 15 GM BOT TOP SCH ×2 (08:39→20:25)
[2018-04-13] MEDS: NIFEdipine XL 60 MG TAB PO SCH (08:39)
--- NOTE | 2018-04-13 09:38 | PRG ---
DATE OF SERVICE: 04/13/2018 SUBJECTIVE: The patient is doing well, had no acute complaints. PHYSICAL EXAMINATION: VITAL SIGNS: Temperature is 97.4, pulse 90, respiration 16, O2 sat 92% on room air, blood pressure 1 61/72. HEENT: Unremarkable. NECK: No JVD. CHEST: Clear without wheezing or rhonchi. CARDIAC: S1 and S2 regular. ABDOMEN: Soft. EXTREMITIES: No edema. LABORATORY DATA: White blood cell count 20, hematocrit 32.5, platelet count 404. Sodium 138, potass ium 2.8, chloride 94, CO2 31, BUN 97, creatinine 2.9, glucose 121. ASSESSMENT: 1. Post-coronary artery bypass graft - doing well. 2. Elevated white count of unknown significance. 3. Status post acute respiratory failure. PLAN: 1. Increase activity as tolerated. 2. We will continue oral antibiotics. 3. Replace potassium.
[2018-04-13] MEDS ORDERED: Potassium Chloride 20 MEQ TAB PO SCH (17:15)
--- NOTE | 2018-04-13 17:53 | PRG ---
DATE OF SERVICE: 04/13/2018 SUBJECTIVE: Mr. Williamson is an 87-year-old white male who is status post CABG and seen by the Renal S erevee for his acute kidney injury on top of his chronic renal failure. He had a superimposed preren al azotemia. He is much improved with gentle volume repletion. In addition, he also developed acute respiratory failure and was subsequently intubated. He is now extubated. He is undergoing PT witho ut any problem. No complaints of chest pain or shortness of breath. PHYSICAL EXAMINATION: VITAL SIGNS: Blood pressure 130/63, heart rate 74, respiratory rate 15, temperature 98.7, pulse ox 9 4% room air. GENERAL: Awake, alert, comfortable, and not in distress. SKIN: Adequate turgor. HEENT: He has pinkish conjunctivae, anicteric sclerae. NECK: No neck mass. No carotid bruits. No JVD. CHEST: No deformities. LUNGS: Clear breath sounds. No wheezing, no crackles. HEART: Normal sinus rhythm. No murmur, no gallops, no rubs. ABDOMEN: Globular, soft, nontender. No masses. EXTREMITIES: No edema, no deformities. MEDICATIONS: Medications of 04/13/2018 reviewed. LABORATORY DATA: Laboratories of 04/13/2018 showed the following: White count 20.6, hemoglobin 10.8 . Sodium 138, potassium 2.8, chloride 94, carbon dioxide 31, BUN 97, creatinine 2.92, glucose 121, c alcium 10.1, magnesium is 2.1. ASSESSMENT AND PLAN: 1. Hypokalemia p.r.n. potassium replacement. Currently on KCl 40 mEq 1 tablet once a day. We will give an extra dose today of 40 mEq. Please note, the patient is not hypokalemic. 2. Acute kidney injury/chronic renal failure, slightly higher creatinine at 2.92, yesterday this was 2.64. This may be a reflection of the current diuretic regimen by this patient. He received IV Las ix yesterday. There is no indication for any dialytic intervention. 3. Status post coronary artery bypass graft, stable. Continue current management. Surgery is follo wing. We will recheck base met and CBC again in a.m.
[2018-04-13] MEDS: Rosuvastatin 20 MG TAB PO SCH (20:20)
[2018-04-14 05:26] LABS: #Eosinphils 0.4 thou/uL (0.0-0.7); #Lymphocytes 1.5 thou/uL (1.20-3.40); #Monocytes 1.7 thou/uL (0.11-0.59); #Neutrophils 15.9 thou/uL (1.40-6.50); %Basophils 0.1 % (0.0-1.0); %Eosinophils 2.1 % (0.0-10.0); %Lymphocytes 7.8 % (21.0-51.0); %Monocytes 8.6 % (0.0-10.0); %Neutrophils 81.4 % (42.0-75.0); Hemoglobin 10.5 g/dL (14.0-18.0); Mean Corpuscular HGB CONC 32.1 g/dL (32.0-36.0); Mean Corpuscular Hemoglobin 29.5 pg (27.0-31.0); Mean Platelet Volume 8.4 fL (7.4-10.4); Platelet Count 421 thou/uL (130-400); RBC Distribution Width 13.8 % (11.5-14.5); Red Blood Cell (RBC) Count 3.55 mill/uL (4.70-6.10); White Blood Cell (WBC) Count 19.6 thou/uL (4.8-10.8)
[2018-04-14 05:42] LABS: Anion Gap 15 mmol/L (10-20); BUN (Urea Nitrogen) 93 mg/dL (8.4-25.7); Calc. Creatinine Clearance 19 mL/min (70-130); Calcium 10.2 mg/dL (7.8-10.44); Carbon Dioxide 30 mmol/L (23-31); Chloride 99 mmol/L (98-107); Estimated GFR-MDRD 21; Glucose 119 mg/dL (83-110); Potassium 3.3 mmol/L (3.5-5.1); Sodium 141 mmol/L (136-145)
[2018-04-14] MEDS ORDERED: Sodium Chloride 0.9% 10 ML ONE (07:18)
[2018-04-14] MEDS ORDERED: PROPOFOL 20 ML ONE (07:21)
--- NOTE | 2018-04-14 09:21 | PRG ---
DATE OF SERVICE: 04/14/2018 Mr. Williamson was seen in the preoperative area. He is to have a MEENAKSHI later today. He reports that he is breathing okay except for some pain when he coughs. PHYSICAL EXAMINATION: VITAL SIGNS: His pulse is in the low 100s, blood pressure 120/80, respiratory rate 18, O2 sat 95% on 2 liters. HEENT: Unremarkable. NECK: No JVD. LUNGS: Fairly clear. CARDIAC: S1 and S2, regular. ABDOMEN: Soft. EXTREMITIES: No edema. ASSESSMENT: Status post postop respiratory failure after coronary artery bypass graft secondary to p ulmonary edema from chronic heart failure. PLAN: He is ready for rehab when cleared from a cardiac standpoint. Pulmonary will be available thi s weekend as needed.
[2018-04-14] MEDS: hydrOXYzine Pamoate 25 mg Capsule PO SCH ×3 (10:27→20:31)
[2018-04-14] MEDS: Polyethylene Glycol 3350 17 GM Packet PO SCH (10:28)
[2018-04-14] MEDS: Nystatin Powder 15 GM BOT TOP SCH ×2 (10:29→20:32)
[2018-04-14] MEDS: Amiodarone 200 MG TAB PO SCH (10:36)
[2018-04-14] MEDS: Potassium Chloride 20 MEQ TAB PO SCH (10:56)
[2018-04-14] MEDS: Aspirin 81 mg Enteric Coated Tablet PO SCH (10:58)
[2018-04-14] MEDS: Cefdinir 300 MG CAP PO SCH (10:59)
[2018-04-14] MEDS: Famotidine 20 MG TAB PO SCH (10:59)
[2018-04-14] MEDS: NIFEdipine XL 60 MG TAB PO SCH (10:59)
[2018-04-14] MEDS: Finasteride 5 MG TAB PO SCH (10:59)
[2018-04-14] MEDS: Tamsulosin HCl 0.4 MG CAP PO SCH (11:00)
[2018-04-14] MEDS: Apixaban 2.5 MG TAB PO SCH ×2 (11:01→20:31)
[2018-04-14] MEDS ORDERED: PROPOFOL 200 MG/20 ML VIAL ONE (13:05)
[2018-04-14 13:38] VITALS: BMI 24.4
[2018-04-14] MEDS: Rosuvastatin 20 MG TAB PO SCH (20:31)
--- NOTE | 2018-04-14 21:35 | ECHO ---
This is an 87-year-old gentleman with paroxysmal atrial fibrillation. DESCRIPTION OF PROCEDURE: The patient taken to the PACU, the patient was sedated by anesthesiology. A transesophageal probe was placed in the distal esophagus and stomach. Echocardiographic graphic images were obtained. The tra nsesophageal probe was removed FINDINGS 1. Normal left ventricular systolic function. 2. Normal mitral and aortic valve. 3. Biatrial enlargement. 4. Mild mitral regurgitation. 5. Mild tricuspid regurgitation. 6. No formed thrombus in the left atrium or left atrial appendage. 7. Atherosclerotic debris in the descending aorta. IMPRESSION: No formed thrombus in the left atrium or left atrial appendage.
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
[2018-04-15 05:47] LABS: Platelet Count 432 thou/uL (130-400)
--- NOTE | 2018-04-15 09:06 | PRG ---
DATE OF SERVICE: 04/15/2018 SUBJECTIVE: Mr. Williamson is an 87-year-old white male with chronic renal failure/acute kidney injury, recently status post CABG and we are following him up for his acute kidney injury as well as chronic renal failure. Patient underwent a cardioversion yesterday; however, this was not successful. This morning, he voices no new complaints. He denies any chest pain or shortness of breath. PHYSICAL EXAMINATION: VITAL SIGNS: Blood pressure 144/69, heart rate 82, respiratory 16, temperature 99, pulse ox 97%. GENERAL: Awake, alert, supine, comfortable, not in distress. SKIN: Adequate turgor. HEENT: Pinkish conjunctivae, anicteric sclerae. NECK: No neck mass, no carotid bruits, no JVD. CHEST: No deformities. LUNGS: Clear breath sounds. HEART: Normal sinus rhythm. No murmur, no gallops, no rubs. ABDOMEN: Globular, soft, nontender, no masses. EXTREMITIES: No edema, no deformities. MEDICATIONS: Of 04/15/2018 was reviewed. LABORATORY DATA: Of 04/15/2018: Creatinine 2.47, GFR 25 mL per minute. ASSESSMENT AND PLAN: 1. Acute kidney injury on top of his chronic renal failure, stable renal function. As a matter of f act, creatinine much improved. He is nearing baseline GFR. Continue supportive care. The patient i n the past has received p.r.n. furosemide. We have held off the furosemide the last 2 days. He is d oing well. 2. Status post congestive heart failure, clinically improved. Status post intubation and currently extubated. 3. Atrial fibrillation -- supportive care. Medical management. Failed cardioversion. 4. Status post coronary artery bypass graft. Awaiting rehab placement. Recheck base met and CBC in a.m.
[2018-04-15] MEDS: Polyethylene Glycol 3350 17 GM Packet PO SCH (09:57)
[2018-04-15] MEDS: Famotidine 20 MG TAB PO SCH (09:58)
[2018-04-15] MEDS: Potassium Chloride 20 MEQ TAB PO SCH (09:58)
[2018-04-15] MEDS: NIFEdipine XL 60 MG TAB PO SCH (09:59)
[2018-04-15] MEDS: Tamsulosin HCl 0.4 MG CAP PO SCH (09:59)
[2018-04-15] MEDS: hydrOXYzine Pamoate 25 mg Capsule PO SCH ×3 (09:59→20:11)
[2018-04-15] MEDS: Apixaban 2.5 MG TAB PO SCH ×2 (09:59→20:11)
[2018-04-15] MEDS: Aspirin 81 mg Enteric Coated Tablet PO SCH (09:59)
[2018-04-15] MEDS: Cefdinir 300 MG CAP PO SCH (09:59)
[2018-04-15] MEDS: Finasteride 5 MG TAB PO SCH (09:59)
[2018-04-15] MEDS: Nystatin Powder 15 GM BOT TOP SCH ×2 (10:02→20:11)
[2018-04-15] MEDS: Rosuvastatin 20 MG TAB PO SCH (20:11)
[2018-04-15] MEDS: diphenhydrAMINE 50 MG CAP PO PRN (23:37)
[2018-04-16 05:38] LABS: #Eosinphils 0.5 thou/uL (0.0-0.7); #Lymphocytes 1.9 thou/uL (1.20-3.40); #Monocytes 1.5 thou/uL (0.11-0.59); #Neutrophils 15.8 thou/uL (1.40-6.50); %Basophils 0.1 % (0.0-1.0); %Eosinophils 2.7 % (0.0-10.0); %Lymphocytes 9.5 % (21.0-51.0); %Monocytes 7.8 % (0.0-10.0); %Neutrophils 79.8 % (42.0-75.0); Hemoglobin 10.9 g/dL (14.0-18.0); Mean Corpuscular HGB CONC 31.3 g/dL (32.0-36.0); Mean Corpuscular Hemoglobin 29.3 pg (27.0-31.0); Mean Corpuscular Volume 93.5 fL (78.0-98.0); Mean Platelet Volume 8.1 fL (7.4-10.4); Platelet Count 505 thou/uL (130-400); RBC Distribution Width 13.8 % (11.5-14.5); Red Blood Cell (RBC) Count 3.73 mill/uL (4.70-6.10); White Blood Cell (WBC) Count 19.8 thou/uL (4.8-10.8)
[2018-04-16 05:48] LABS: Anion Gap 15 mmol/L (10-20); BUN (Urea Nitrogen) 69 mg/dL (8.4-25.7); Calc. Creatinine Clearance 23 mL/min (70-130); Calcium 10.7 mg/dL (7.8-10.44); Carbon Dioxide 26 mmol/L (23-31); Chloride 104 mmol/L (98-107); Estimated GFR-MDRD 26; Glucose 121 mg/dL (83-110); Potassium 4.1 mmol/L (3.5-5.1); Sodium 141 mmol/L (136-145)
[2018-04-16] MEDS: Famotidine 20 MG TAB PO SCH (09:25)
[2018-04-16] MEDS: NIFEdipine XL 60 MG TAB PO SCH (09:25)
[2018-04-16] MEDS: Apixaban 2.5 MG TAB PO SCH (09:25)
[2018-04-16] MEDS: Cefdinir 300 MG CAP PO SCH (09:25)
[2018-04-16] MEDS: hydrOXYzine Pamoate 25 mg Capsule PO SCH (09:26)
[2018-04-16] MEDS: Tamsulosin HCl 0.4 MG CAP PO SCH (09:26)
[2018-04-16] MEDS: Potassium Chloride 20 MEQ TAB PO SCH (09:26)
[2018-04-16] MEDS: Nystatin Powder 15 GM BOT TOP SCH (09:26)
[2018-04-16] MEDS: Finasteride 5 MG TAB PO SCH (09:26)
[2018-04-16] MEDS: Polyethylene Glycol 3350 17 GM Packet PO SCH (09:27)
[2018-04-16] MEDS: Aspirin 81 mg Enteric Coated Tablet PO SCH (09:27)
--- NOTE | 2018-04-16 10:07 | PRG ---
DATE OF SERVICE: 04/16/2018 SERVICE: Renal Medicine. SUBJECTIVE: Mr. Williamson is an 87-year-old white male who underwent CABG, status post acute respirato ry failure/intubated, currently extubated and being followed by the Renal Service for his acute kidne y injury on top of his chronic renal failure. He has also undergone a failed cardioversion. Still n oted to be in atrial fibrillation this morning. No other complaints, no chest pain or shortness of b reath. OBJECTIVE: VITAL SIGNS: Blood pressure is 129/63, heart rate 93, respiratory rate 17, temperature 97.4, pulse o x 93%. GENERAL: Noted to be awake, alert, comfortable, not in distress. SKIN: Adequate turgor. HEENT: He has slightly pale conjunctivae, anicteric sclerae. NECK: No neck mass, no carotid bruits. No JVD. CHEST: No deformities. LUNGS: Clear breath sounds, no wheezing, no crackles. HEART: Irregularly irregular. No murmur, no gallops, no rubs. ABDOMEN: Globular, soft, nontender, no masses. EXTREMITIES: No edema, no deformities. MEDICATIONS: Of 04/16/2018 was reviewed. LABORATORY DATA: Of 04/16/2018, sodium 141, potassium 4.1, chloride 104, carbon dioxide 26, BUN 69, creatinine 2.35, glucose 121, calcium 10.7. ASSESSMENT AND PLAN: 1. Acute kidney injury on top of his chronic renal failure - superimposed hemodynamically mediated r enal dysfunction. Slowly improving over time. Creatinine is now noted at 2.35. 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 There is no indication for any dialytic intervention. Currently, no t on any diuretic regimen. 2. Congestive heart failure, resolved. 3. Chronic atrial fibrillation - Cardiology is following. 4. Status post acute respiratory failure, resolved. Awaiting rehab placement.
[2018-04-16 13:56] VITALS: BP 143/74; TEMP 97.8
--- NOTE | 2018-04-16 15:39 | DIS ---
DATE OF ADMISSION: 04/03/2018 DATE OF DISCHARGE: 04/16/2018 PRINCIPAL DIAGNOSIS: Coronary artery disease. SECONDARY DIAGNOSIS: Chronic renal insufficiency. PROCEDURES PERFORMED: Cardiac catheterization, 04/03/2018 and coronary artery bypass grafting x5 wit h left internal mammary artery to the LAD and reverse greater saphenous vein grafts to the PDA, obtus e marginal, ramus intermedius and diagonal, 04/03/2018. HISTORY OF PRESENT ILLNESS AND HOSPITAL COURSE: The patient is an 87-year-old man with renal insuffi ciency who of late has had to curtail his regular walking regimen due to discomfort in his epigastriu m and lower chest. Stress testing revealed anterolateral ischemia with normal ejection fraction. Ca rdiac catheterization demonstrated severe 3-vessel coronary disease, prompting surgical revasculariza tion. Although he never became particularly oliguric and anuric, he did have a significant rise in h is creatinine by postop day 2. His preoperative creatinine was 1.76 and the day following surgery, i t is essentially unchanged, but by postoperative day 5 and 6, it had peaked to low 4 hours with the h ighest recorded level being 4.08 on postop day 6. From there, it gradually diminished and at the estella e of transfer to rehab on 04/16/2018, postoperative day 13, it is 2.35. The patient lives alone and his level of activity has been somewhat slow to recover and he is being transferred to the rehabilita tion unit. Because of chronic atrial fibrillation, he is on anticoagulation, which has been restarte d.
--- NOTE | 2018-04-18 18:01 | PQF ---
CHRISTELLE TANG MARC S MD [id number] CLINICAL DOCUMENTATION CLARIFICATION FORM: POST DISCHARGE DATE: 04/18/18 ATTN: Dr Dan Please exercise your independent, professional judgment in responding to the clarification form. Clinical indicators are provided on the bottom of this form for your review Please check appropriate box(s): [ ] Acute blood loss anemia [ ] Post-op anemia related to acute blood loss [ ] Anemia: [ ] Aplastic [ ] Nutritional [ ] Drug induced (specify) ___ [ ] Hemolytic [ ] Hereditary [ ] Acquired [ ] Autoimmune [ ] Non-autoimmune [ ] Enzyme disorder [ ] Chronic Anemia: [ ] Blood loss [ ] Hemolytic [ ] Simple [ ] Due to Vitamin B12 Deficiency [ ] Other [ ] Anemia of Chronic Disease (please specify) [ ] Anemia due to Neoplasm: [ ] Primary [ ] Secondary [ ] Anemia due to (please choose): [ ] Due to Chemotherapy [ ] Due to Radiotherapy [ ] Due to Immunotherapy [ ] Other diagnosis [ ] Unable to determine In addition, please specify: Present on Admission (POA): [ ] Yes [ ] No [ ] Unable to determine For continuity of documentation, please document condition throughout progress notes and discharge summary. Thank You. CLINICAL INDICATORS - SIGNS / SYMPTOMS / LABS Anemia documented beginning on PN 04/08/18 Dr Fagan Low hemoglobin and/or hematocrit since admission Hemoglobin 9.1 on admission on 04/03/18; Dropped to 6.6 on 04/08/18--transfused on 04/08/18; 10.9 on discharge Hematocrit 26.7 on admission on 04/03/18; dropped to 19.6 on 04/08/18; 34.8 on discharge RISK FACTORS CABG Cardioversion TREATMENTS: Transfusion of blood products (This form is maintained as a part of the permanent medical record) 2014 [employer]. All Rights Reserved [email or web address] [phone] [email or web address]
--- NOTE | 2018-04-18 18:10 | PQF ---
CHRISTELLE TANG MARC S MD [id number] U-[id number] CLINICAL DOCUMENTATION CLARIFICATION FORM: POST DISCHARGE DATE: 04/18/18 ATTN: Dr. Dan Please exercise your independent, professional judgment in responding to the clarification form. Clinical indicators are provided on the bottom of this form for your review Please check appropriate box(s): HEART FAILURE: A. TYPE: [ ] Systolic / HFrEF [ ] Diastolic / HFpEF [ ] Combined Systolic / Diastolic B. ACUITY [ ] Acute [ ] Acute on Chronic [ ] Chronic [ ] Other diagnosis [ ] Unable to determine In addition, please specify: Present on Admission (POA): [ ] Yes [ ] No [ ] Unable to determine For continuity of documentation, please document condition throughout progress notes and discharge summary. Thank You. CLINICAL INDICATORS - SIGNS / SYMPTOMS / LABS pulmonary edema afib documentation of congestive heart failure Dr Bernstein's progress notes 04/12-04/13/18 decreased urine output elevated BUN and creatinine RISKS: CAD CKD IV Hypertension afib TREATMENTS: Administration of SRAVANTHI / ARB / BB Cardiac monitoring / telemetry IV diuretics mechanical ventillation (This form is maintained as a part of the permanent medical record) 2014 [employer] All Rights Reserved [email or web address] [phone] JAYSON
== END 2018-04-16 14:21 | DRG 233 ==
LOC: CCL 05:42 → CCU 17:59 → 2NO 04-11 11:34
PROVIDERS: ADMIT Thoracic Surgery (Cardiothoracic Vascular Surgery); ATTEND Internal Medicine Cardiovascular Disease
PROC: 02100Z9 Bypass Coronary Artery, One Artery from Left Internal Mammary, Open Approach (ICD-10-PCS; principal; 2018-04-03)
PROC: 4A023N7 Measurement of Cardiac Sampling and Pressure, Left Heart, Percutaneous Approach (ICD-10-PCS; 2018-04-03)
PROC: 0213093 Bypass Coronary Artery, Four or More Arteries from Coronary Artery with Autologous Venous Tissue, Open Approach (ICD-10-PCS; 2018-04-03)
PROC: 06BQ4ZZ Excision of Left Saphenous Vein, Percutaneous Endoscopic Approach (ICD-10-PCS; 2018-04-03)
PROC: 06BP0ZZ Excision of Right Saphenous Vein, Open Approach (ICD-10-PCS; 2018-04-03)
PROC: 5A1221Z Performance of Cardiac Output, Continuous (ICD-10-PCS; 2018-04-03)
PROC: B2111ZZ Fluoroscopy of Multiple Coronary Arteries using Low Osmolar Contrast (ICD-10-PCS; 2018-04-03)
PROC: B2151ZZ Fluoroscopy of Left Heart using Low Osmolar Contrast (ICD-10-PCS; 2018-04-03)
PROC: 5A2204Z Restoration of Cardiac Rhythm, Single (ICD-10-PCS; 2018-04-06)
PROC: 0BH17EZ Insertion of Endotracheal Airway into Trachea, Via Natural or Artificial Opening (ICD-10-PCS; 2018-04-06)
PROC: 5A1955Z Respiratory Ventilation, Greater than 96 Consecutive Hours (ICD-10-PCS; 2018-04-06)
PROC: 30233N1 Transfusion of Nonautologous Red Blood Cells into Peripheral Vein, Percutaneous Approach (ICD-10-PCS; 2018-04-08)
PROC: 5A2204Z Restoration of Cardiac Rhythm, Single (ICD-10-PCS; 2018-04-14)
PROC: B24BZZ4 Ultrasonography of Heart with Aorta, Transesophageal (ICD-10-PCS; 2018-04-14)
DX: I25.10 Atherosclerotic heart disease of native coronary artery without angina pectoris (principal); J95.821 Acute postprocedural respiratory failure; J96.01 Acute respiratory failure with hypoxia; N17.9 Acute kidney failure, unspecified; I13.0 Hypertensive heart and chronic kidney disease with heart failure and stage 1 through stage 4 chronic kidney disease, or unspecified chronic kidney disease; N18.4 Chronic kidney disease, stage 4 (severe); I50.1 Left ventricular failure, unspecified; R07.89 Other chest pain; I48.0 Paroxysmal atrial fibrillation; I50.9 Heart failure, unspecified; E87.6 Hypokalemia; Z79.01 Long term (current) use of anticoagulants; E78.5 Hyperlipidemia, unspecified; N40.0 Benign prostatic hyperplasia without lower urinary tract symptoms; D64.9 Anemia, unspecified; Z01.812 Encounter for preprocedural laboratory examination
CPT/HCPCS: 36415; 36416; 36430; 71045; 76770; 80048; 80053; 80061; 80076; 80162; 81001; 81003; 82565; 82805; 83735; 85014; 85018; 85025; 85049; 85610; 85730; 86850; 86900; 86901; 87040; 87086; 92960; 93005; 93010; 93312; 93458; 93798; 94002; 94003; 94150; 94640; 94660; C1769; C9113; G8978-GP-CK; G8979-GP-CK; G8980-GP-CK; G8987-GO-CK; G8988-GO-CI; J0282; J0360; J0692; J1160; J1265; J1644; J1815; J1940; J2001; J2150; J2250; J2270; J2405; J2440; J2704; J2720; J3010; J3370; J3475; J3480; J7050; J7070; J7620; P9016; P9045; P9047; Q0177; S0017; S0028

== ENCOUNTER 2018-09-07 15:03 | Outpatient (CLI) | payer MEDICARE, MEDICAID ==
--- NOTE | 2018-09-07 15:18 | RAD ---
FEXAM:Right hip 2 views HISTORY: Hip pain COMPARISON: None FINDINGS:The bones are demineralized. There are mild arthritic changes of the hip. There are vascular calcifications seen. No acute bony findings. IMPRESSION:Mild arthritic changes of the hip.
== END 2018-09-07 15:04 | disposition home or self-care (01) ==
LOC: RAD-FRANK 15:03
PROVIDERS: ATTEND Nurse Practitioner Family
DX: M25.551 Pain in right hip (principal); M16.11 Unilateral primary osteoarthritis, right hip

== ENCOUNTER 2019-01-10 11:02 | Inpatient (IN) | payer MEDICARE, MEDICAID ==
--- NOTE | 2019-01-10 11:23 | RAD ---
XR Chest 1 View Portable HISTORY: Chest pain COMPARISON: 04/24/2018 FINDINGS: Changes of median sternotomy again seen. There is mild cardiomegaly. The lungs are well exp anded without lobar consolidation, pneumothoraces, tanisha pulmonary edema or pleural effusions. IMPRESSION: No radiographic evidence of acute cardiopulmonary process.
[2019-01-10 11:44] LABS: #Basophils 0.1 thou/uL (0.0-0.2); #Eosinphils 0.2 thou/uL (0.0-0.7); #Lymphocytes 3.4 thou/uL (1.20-3.40); #Monocytes 0.8 thou/uL (0.11-0.59); %Basophils 0.5 % (0.0-1.0); %Eosinophils 1.5 % (0.0-10.0); %Lymphocytes 32.9 % (21.0-51.0); %Monocytes 7.5 % (0.0-10.0); %Neutrophils 57.6 % (42.0-75.0); Hemoglobin 15.4 g/dL (14.0-18.0); Mean Corpuscular Hemoglobin 31.7 pg (27.0-31.0); Mean Corpuscular Volume 93.4 fL (78.0-98.0); Mean Platelet Volume 7.6 fL (7.4-10.4); Platelet Count 253 thou/uL (130-400); RBC Distribution Width 12.5 % (11.5-14.5); Red Blood Cell (RBC) Count 4.85 mill/uL (4.70-6.10); White Blood Cell (WBC) Count 10.4 thou/uL (4.8-10.8)
[2019-01-10 12:10] LABS: ALT (SGPT) 23 U/L (8-55); AST (SGOT) 27 U/L (5-34); Albumin 4.4 g/dL (3.4-4.8); Alkaline Phosphatase 70 U/L (40-150); Anion Gap 13 mmol/L (10-20); BUN (Urea Nitrogen) 31 mg/dL (8.4-25.7); Bilirubin, Total 0.7 mg/dL (0.2-1.2); Calc. Creatinine Clearance 0 mL/min (70-130); Calcium 9.9 mg/dL (7.8-10.44); Carbon Dioxide 27 mmol/L (23-31); Chloride 103 mmol/L (98-107); Estimated GFR-MDRD 34; Glucose 112 mg/dL (83-110); Potassium 4.4 mmol/L (3.5-5.1); Protein, Total 7.4 g/dL (5.8-8.1); Sodium 139 mmol/L (136-145)
[2019-01-10] MEDS ORDERED: Ondansetron PF 4 MG/2 ML Vial IVP PRN (16:17)
[2019-01-10] MEDS ORDERED: Bisacodyl 5 MG TAB PO PRN (16:17)
[2019-01-10] MEDS ORDERED: Acetaminophen 650 MG Suppository PR PRN (16:17)
[2019-01-10] MEDS ORDERED: Acetaminophen 325 MG TAB PO PRN (16:17)
[2019-01-10 16:33] VITALS: BMI 25.7
--- NOTE | 2019-01-10 17:02 | HP ---
PRIMARY CARE PHYSICIAN: Ann Drake. CHIEF COMPLAINT: "almost passed out." HISTORY OF PRESENT ILLNESS: Mr. Williamson is a pleasant 88-year-old gentleman, who was seen at [facility] on January 10, 2019. In April 2018, he underwent coronary artery bypass grafting x5. He reports that he was doing well until earlier today. Today, he was at a grocery store when he almost passed out. He denies any nausea. He reports that his head felt like it was spinning around and he almost lost consciousness. He denies any chest pain or palpitations. He denies any abdominal pain. He denies any vomiting or diarrhea. He reportedly had systolic blood pressure of 90 and variable heart rate as low as 30 when EMS saw him. The patient reports feeling better on the way to the emergency room and reports that he feels like he is back at his baseline now. REVIEW OF SYSTEMS: All systems were reviewed and found to be negative except for the pertinent positives as described above. PAST MEDICAL HISTORY: Coronary artery disease, atrial fibrillation, dyslipidemia, hypertension, benign prostate hypertrophy. PAST SURGICAL HISTORY: Coronary artery bypass graft x5. ALLERGIES: NO KNOWN DRUG ALLERGIES. CURRENT MEDICATIONS: 1. Hydrochlorothiazide 50 mg daily. 2. Atenolol 100 mg daily. 3. Eliquis 2.5 mg two times a day. 4. Nifedipine 60 mg two times a day. 5. Flomax 0.4 mg daily. 6. Hydroxyzine 25 mg every 8 hours as needed. 7. Calcitriol 0.25 mcg daily. 8. Crestor 40 mg in the evening. 9. Vascepa 2 g two times a day. CODE STATUS: I discussed his code status. He is full code. SOCIAL HISTORY: The patient denies tobacco use, alcohol use, or recreational drug use. FAMILY HISTORY: Significant for myocardial infarction in both his parents. PHYSICAL EXAMINATION: GENERAL: On examination, Mr. Williamson is awake and alert, not in acute distress. VITAL SIGNS: Blood pressure is 134/70, pulse 54, respiratory rate 15, and oxygen saturation 100% on room air. He is afebrile. His pulse has been as high as 115 in the emergency room. EYES: No scleral icterus. No conjunctival pallor. ENT: Moist mucosal membranes. No oropharyngeal erythema or exudates. NECK: Supple, nontender. Trachea is midline. RESPIRATORY: Accessory muscles of breathing are not active. Chest wall movements are symmetric bilaterally. Lungs are clear to auscultation without wheeze, rhonchi, or crepitations. CARDIOVASCULAR: S1 and S2 are heard, regular. Peripheral pulses palpable. No carotid bruit. No pericardial rub. ABDOMEN: Soft, nontender. Bowel sounds heard. NEUROLOGIC: Cranial nerves 2 through 12 are intact. MUSCULOSKELETAL: Power is 5/5 in all 4 extremities. SKIN: No rashes or subcutaneous nodules. LYMPHATIC: No cervical lymphadenopathy. PSYCHIATRIC: Normal mood, normal affect. The patient is oriented to person, place, and time. LABORATORY DATA: Mr. Williamson's labs and investigations were reviewed. I reviewed his electrocardiogram, which shows sinus rhythm with first-degree AV block, no ST changes to suggest an acute coronary syndrome. He also has a left bundle-branch block, which is chronic. I reviewed his chest x-ray, which does not show any pulmonary infiltrates. He has an unremarkable CBC, normal troponin-I x2, elevated BNP of 314, elevated blood urea nitrogen of 31, elevated creatinine of 1.87, last known creatinine 2.04 in April 2018, otherwise unremarkable liver profile. ASSESSMENT AND PLAN: Mr. Williamson is a pleasant 88-year-old gentleman, who was seen at [facility] on January 10, 2019. His problem list includes: 1. Presyncope: Mr. Williamson is presenting with presyncope, presumably secondary to bradycardia. He does have a history of atrial fibrillation, could have sick sinus syndrome. He will be admitted to the hospital for further monitoring. His case has been discussed by emergency room physician with Cardiology on-call. We will hold beta-fatoumata. 2. Coronary artery disease: The patient denies any chest pain. Two troponins have been negative. We will monitor on telemetry. 3. Atrial fibrillation: The patient is currently in normal sinus rhythm. We will hold anticoagulation in case he needs pacemaker placement. 4. Benign prostate hypertrophy: Stable, continue Flomax. 5. Dyslipidemia: Continue Crestor and Vascepa. 6. Chronic kidney disease stage 3: Stable. Many thanks for allowing me to participate in your patient's care. Please feel free to contact me with any questions or concerns. LEVEL OF RISK: High. LEVEL OF COMPLEXITY: High. Job ID: [id number]
[2019-01-10 19:00] LABS: Troponin I 0.016 ng/mL (< 0.028)
[2019-01-10] MEDS ORDERED: hydrOXYzine Pamoate 25 mg Capsule PO PRN (19:31)
[2019-01-10] MEDS ORDERED: Guaifenesin DM 100-10/5 ML UDCUP PO PRN (19:31)
[2019-01-10] MEDS ORDERED: ICOSAPENT ETHYL PO SCH (21:00)
[2019-01-10] MEDS: Tamsulosin HCl 0.4 MG CAP PO SCH (21:16)
[2019-01-10] MEDS: Rosuvastatin 20 MG TAB PO SCH (21:16)
[2019-01-11 04:53] LABS: Anion Gap 12 mmol/L (10-20); BUN (Urea Nitrogen) 26 mg/dL (8.4-25.7); Calc. Creatinine Clearance 35 mL/min (70-130); Calcium 9.1 mg/dL (7.8-10.44); Carbon Dioxide 24 mmol/L (23-31); Chloride 105 mmol/L (98-107); Estimated GFR-MDRD 41; Glucose 108 mg/dL (83-110); Potassium 4.1 mmol/L (3.5-5.1); Sodium 137 mmol/L (136-145)
[2019-01-11 06:03] LABS: #Eosinphils 0.2 thou/uL (0.0-0.7); #Monocytes 0.8 thou/uL (0.11-0.59); #Neutrophils 5.4 thou/uL (1.40-6.50); %Basophils 0.5 % (0.0-1.0); %Eosinophils 2.2 % (0.0-10.0); %Lymphocytes 31.6 % (21.0-51.0); %Monocytes 8.4 % (0.0-10.0); %Neutrophils 57.3 % (42.0-75.0); Hemoglobin 13.1 g/dL (14.0-18.0); Mean Corpuscular Hemoglobin 31.9 pg (27.0-31.0); Mean Corpuscular Volume 93.8 fL (78.0-98.0); Mean Platelet Volume 7.5 fL (7.4-10.4); Platelet Count 230 thou/uL (130-400); RBC Distribution Width 12.6 % (11.5-14.5); Red Blood Cell (RBC) Count 4.09 mill/uL (4.70-6.10); White Blood Cell (WBC) Count 9.4 thou/uL (4.8-10.8)
[2019-01-11] MEDS ORDERED: hydrALAZINE 20 MG/ML VIAL SLOW IVP PRN (08:20)
[2019-01-11] MEDS ORDERED: Non-Formulary Item 1 EACH (Hydrochlorothiazide [Hydrochlorothiazide] 50 MG) PO SCH (09:00)
[2019-01-11] MEDS ORDERED: Atenolol 25 MG TAB PO SCH (09:00)
[2019-01-11] MEDS: Hydrochlorothiazide 25 MG TAB PO SCH (10:01)
[2019-01-11] MEDS: NIFEdipine XL 60 MG TAB PO SCH ×2 (10:01→21:22)
[2019-01-11] MEDS: Calcitriol 0.25 MCG CAP PO SCH (10:02)
--- NOTE | 2019-01-11 10:53 | PDOC.HOSPP ---
- Subjective Encounter Date: 01/11/19 Encounter Time: 07:00 Subjective: Pt seen for followup re: bradycardia. Feels well, no complaints. - Objective Vital Signs & Weight: Vital Signs (12 hours) Temp Pulse Resp BP BP Pulse Ox 01/11/19 08:11 97.9 F 53 L 16 199/84 H 99 01/11/19 04:30 97.7 F 49 L 15 161/72 H 94 L Weight Weight 164 lb 4.8 oz I&O: 01/10/19 01/11/19 01/12/19 06:59 06:59 06:59 Output Total 100 Balance -100 Result Diagrams: 01/11/19 04:52 01/11/19 04:08 Additional Labs: Labs and MARs reviewed by me EKG Reviewed by me: Yes (Tele: sinus bradycardia) ROS - Review of Systems Respiratory: denies: cough, shortness of breath, hemoptysis, SOB with excertion , pleuritic pain, wheezing Cardiovascular: denies: chest pain, palpitations, orthopnea, paroxysmal noc. dyspnea, edema, light headedness Gastrointestinal: denies: nausea, vomitting, abdominal pain, diarrhea, constipation, melena, hematochezia Genitourinary: denies: dysuria, frequency, incontinence, hematuria, retention Musculoskeletal: denies: neck pain, shoulder pain, arm pain, back pain, hand pain, leg pain, foot pain - Medication Medications: Active Medications Generic Name Dose Route Start Last Admin Trade Name Freq PRN Reason Stop Dose Admin Calcitriol 0.25 mcg 01/11/19 09:00 01/11/19 10:02 Rocaltrol PO 0.25 mcg DAILY DEMAR Administration Hydrochlorothiazide 50 mg 01/11/19 09:00 01/11/19 10:01 Hydrochlorothiazide PO 50 mg DAILY DEMAR Administration Nifedipine 60 mg 01/11/19 09:00 01/11/19 10:01 Procardia Xl PO 60 mg BID DEMAR Administration Rosuvastatin Calcium 40 mg 01/10/19 21:00 01/10/19 21:16 Crestor PO 40 mg HS DEMAR Administration Sodium Chloride 10 ml 01/11/19 09:00 01/11/19 10:02 Flush - Normal Saline IVF 10 ml Q12HR DEMAR Administration Tamsulosin HCl 0.4 mg 01/10/19 21:00 01/10/19 21:16 Flomax PO 0.4 mg HS DEMAR Administration - Exam Eye: anicteric sclera ENT: normocephalic atraumatic Neck: supple, symmetric, no JVD, no thyromegaly Heart: no gallops, no rubs Heart - other findings: S1, S2, leroy, reg Respiratory: CTAB, no wheezes, no rales, no ronchi, normal chest expansion Gastrointestinal: soft, non-tender, non-distended, normal bowel sounds Neurological: CN's grossly intact Musculoskeletal: normal tone Psychiatric: normal affect, normal behavior, A&O x 3 Hosp A/P (1) Sinus bradycardia Code(s): R00.1 - BRADYCARDIA, UNSPECIFIED Status: Acute (2) HTN (hypertension) Code(s): I10 - ESSENTIAL (PRIMARY) HYPERTENSION Status: Acute (3) Chronic kidney disease, stage 3 Code(s): N18.3 - CHRONIC KIDNEY DISEASE, STAGE 3 (MODERATE) Status: Chronic (4) CAD (coronary artery disease) Code(s): I25.10 - ATHSCL HEART DISEASE OF [place] CORONARY ARTERY W/O ANG PCTRS Status: Chronic (5) BPH (benign prostatic hyperplasia) Code(s): N40.0 - BENIGN PROSTATIC HYPERPLASIA WITHOUT LOWER URINRY TRACT SYMP Status: Chronic (6) Dyslipidemia Code(s): E78.5 - HYPERLIPIDEMIA, UNSPECIFIED Status: Chronic - Plan out of bed/ambulate Hold atenolol. Continue hydrochlorothiazide. Continue Crestor and Vescepa. CAD and BPH stable. Apixaban on hold.
--- NOTE | 2019-01-11 15:39 | CON ---
DATE OF CONSULTATION: 01/11/2019 HISTORY OF PRESENT ILLNESS: I am seeing Mr. Williamson at our [facility] Telemetry Floor as Electrophysiology consult, and his problems are: 1. Syncopal spell. 2. Episode of bradycardia in the 40s, likely sick sinus syndrome worsened by beta-fatoumata therapy. 3. Paroxysmal atrial fibrillation with tachy-leroy syndrome, on atenolol as outpatient. 4. Likely conduction disease with intermittent left bundle-branch block and marked first-degree atrioventricular block. 5. History of coronary artery disease with coronary artery bypass grafting surgery x5 vessels in April 2018. 6. History of preserved left ventricular ejection fraction by echo in the past. 7. Chronic renal insufficiency. 8. Oral anticoagulation with Eliquis 2.5 mg twice a day. 9. History of hypertension. ALLERGIES: NONE NOTED. MEDICATIONS: At home included: 1. Calcitriol. 2. Apixaban. 3. Guaifenesin. 4. Rosuvastatin. 5. Tamsulosin. 6. Vascepa. 7. Atenolol. 8. Hydrochlorothiazide. 9. Nifedipine. 10. Hydroxyzine. SUBJECTIVE: Mr. Williamson is here after a syncopal spell, which occurred while he was shopping in the grocery store. He had no nausea or chest pain. His head was spinning. He had nearly passed out. He denies chest pain. No abdominal discomfort. No nausea or vomiting associated with the event. Since then, he seems to be stable. There is no PND, orthopnea, or signs of fluid overload. REVIEW OF SYSTEMS: Rest of 12-point review of systems was otherwise unremarkable. PAST MEDICAL HISTORY: As above. PAST SURGICAL HISTORY: As well as above. SOCIAL HISTORY: The patient denies smoking, EtOH, or drug use. FAMILY HISTORY: Significant for ME in both parents. PHYSICAL EXAMINATION: VITAL SIGNS: Blood pressure 199/84, heart rate 50, respiratory rate 16, temperature 97.9 degrees Fahrenheit. GENERAL: Alert and oriented man, in no apparent distress. NECK: Supple. Jugular veins are not distended. CHEST: Coarse without crackles. HEART: Sounds are regular rate and rhythm. No murmur or gallop. ABDOMEN: Benign. Bowel sounds positive. EXTREMITIES: Lower extremities without edema, clubbing, or cyanosis. MUSCULOSKELETAL: Without joint swelling or deformity. SKIN: Without rash. Midsternal scar is well healed. DATABASE: EKG is reviewed, initially revealing sinus bradycardia, first-degree AV block, intermittent left bundle-branch block is also noted. Paroxysmal atrial fibrillation is also documented in the EKG. Telemetry strips reveal sinus bradycardia in the 40s to 50s during awake hours and also episodes of atrial fibrillation. LABORATORY DATA: White cell count is 9.4, hemoglobin is 13.1, platelet count is 230. Sodium 137, potassium 4.1, BUN is 26, creatinine 1.59. ASSESSMENT AND PLAN: Mr. 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 We discussed the rationale for pacemaker implantation in this situation. He understands the risks as well including infection, bleeding, pneumothorax, tamponade, and lead dislodgement requiring revision. He understands and is willing to proceed. We will continue holding Ciro, and we will schedule him hopefully for tomorrow. Job ID: [id number]
[2019-01-11] MEDS: Tamsulosin HCl 0.4 MG CAP PO SCH (21:22)
[2019-01-11] MEDS: Rosuvastatin 20 MG TAB PO SCH (21:23)
[2019-01-12] MEDS ORDERED: Metoprolol Tartrate 5 MG/5 ML VIAL IVP PRN (01:19)
[2019-01-12 05:45] LABS: #Eosinphils 0.2 thou/uL (0.0-0.7); #Lymphocytes 2.6 thou/uL (1.20-3.40); #Monocytes 0.9 thou/uL (0.11-0.59); #Neutrophils 7.6 thou/uL (1.40-6.50); %Basophils 0.4 % (0.0-1.0); %Eosinophils 1.8 % (0.0-10.0); %Lymphocytes 23.2 % (21.0-51.0); %Monocytes 7.5 % (0.0-10.0); %Neutrophils 67.1 % (42.0-75.0); Hemoglobin 14.1 g/dL (14.0-18.0); Mean Corpuscular HGB CONC 32.8 g/dL (32.0-36.0); Mean Corpuscular Hemoglobin 30.7 pg (27.0-31.0); Mean Corpuscular Volume 93.8 fL (78.0-98.0); Mean Platelet Volume 7.8 fL (7.4-10.4); Platelet Count 232 thou/uL (130-400); RBC Distribution Width 12.6 % (11.5-14.5); Red Blood Cell (RBC) Count 4.58 mill/uL (4.70-6.10); White Blood Cell (WBC) Count 11.4 thou/uL (4.8-10.8)
[2019-01-12 06:03] LABS: Anion Gap 13 mmol/L (10-20); BUN (Urea Nitrogen) 27 mg/dL (8.4-25.7); Calc. Creatinine Clearance 41 mL/min (70-130); Calcium 9.7 mg/dL (7.8-10.44); Carbon Dioxide 26 mmol/L (23-31); Chloride 104 mmol/L (98-107); Estimated GFR-MDRD 49; Glucose 103 mg/dL (83-110); Potassium 3.7 mmol/L (3.5-5.1); Sodium 139 mmol/L (136-145)
[2019-01-12] MEDS: Calcitriol 0.25 MCG CAP PO SCH (09:33)
[2019-01-12] MEDS: Fluticasone Propionate Nasal Spray 16 gm Bottle NASAL SCH (09:33)
[2019-01-12] MEDS: NIFEdipine XL 60 MG TAB PO SCH ×2 (09:33→20:38)
[2019-01-12] MEDS: Hydrochlorothiazide 25 MG TAB PO SCH (09:33)
[2019-01-12] MEDS ORDERED: Gentamicin 80 MG/2 ML VIAL ONE (10:55)
[2019-01-12] MEDS ORDERED: CEFAZOLIN 1 GM VIAL ONE (10:55)
[2019-01-12] MEDS ORDERED: Midazolam HCl 2 mg/2 ml Vial ONE (10:56)
[2019-01-12] MEDS ORDERED: Fentanyl 100 MCG/2 ML VIAL ONE (10:56)
[2019-01-12] MEDS ORDERED: Lidocaine 1% (PF) 30 ML VIAL ONE (12:21)
--- NOTE | 2019-01-12 13:41 | PDOC.HOSPP ---
- Subjective Encounter Date: 01/12/19 Encounter Time: 07:00 Subjective: Pt seen for followup re; symptomatic bradycardia. says he feels better. Did not sleep well last night due to allergies. - Objective Vital Signs & Weight: Vital Signs (12 hours) Temp Pulse Resp BP BP Pulse Ox 01/12/19 11:00 98.5 F 60 18 117/56 L 98 01/12/19 07:21 99.2 F 71 16 124/56 L 95 01/12/19 03:00 98 F 120 H 20 154/99 H 97 01/12/19 02:41 97 Weight Weight 164 lb 4.8 oz I&O: 01/11/19 01/12/19 01/13/19 06:59 06:59 06:59 Intake Total 960 Output Total 100 1925 Balance -100 -965 Result Diagrams: 01/12/19 05:13 01/12/19 05:13 Additional Labs: Labs and MARs reviewed by me EKG Reviewed by me: Yes (Tele: NSR) ROS - Review of Systems Cardiovascular: denies: chest pain, palpitations, orthopnea, paroxysmal noc. dyspnea, edema, light headedness Gastrointestinal: denies: nausea, vomitting, abdominal pain, diarrhea, constipation, melena, hematochezia - Medication Medications: Active Medications Generic Name Dose Route Start Last Admin Trade Name Freq PRN Reason Stop Dose Admin Calcitriol 0.25 mcg 01/11/19 09:00 01/12/19 09:33 Rocaltrol PO 0.25 mcg DAILY DEMAR Administration Fluticasone Propionate 0 gm 01/12/19 09:00 01/12/19 09:33 Flonase Nasal [place] NASAL 4 spray DAILY DEMAR Administration Hydralazine HCl 10 mg 01/11/19 08:20 01/11/19 12:11 Apresoline SLOW IVP 10 mg Q6H PRN Administration SBP Greater Than 170 Hydrochlorothiazide 50 mg 01/11/19 09:00 01/12/19 09:33 Hydrochlorothiazide PO 50 mg DAILY DEMAR Administration Metoprolol Tartrate 5 mg 01/12/19 01:19 01/12/19 01:49 Lopressor IVP 01/13/19 01:20 5 mg ONE PRN Administration Cardiac Arrythmia Nifedipine 60 mg 01/11/19 09:00 01/12/19 09:33 Procardia Xl PO 60 mg BID DEMAR Administration Rosuvastatin Calcium 40 mg 01/10/19 21:00 01/11/19 21:23 Crestor PO 40 mg HS DEMAR Administration Sodium Chloride 10 ml 01/11/19 09:00 01/12/19 09:37 Flush - Normal Saline IVF Not Given Q12HR DEMAR Tamsulosin HCl 0.4 mg 01/10/19 21:00 01/11/19 21:22 Flomax PO 0.4 mg HS DEMAR Administration - Exam NAD Eye: anicteric sclera ENT: normocephalic atraumatic Neck: supple Heart: RRR Respiratory: CTAB Gastrointestinal: soft Skin: no rashes Musculoskeletal: normal strength Psychiatric: normal affect Hosp A/P (1) Sinus bradycardia Code(s): R00.1 - BRADYCARDIA, UNSPECIFIED Status: Acute (2) HTN (hypertension) Code(s): I10 - ESSENTIAL (PRIMARY) HYPERTENSION Status: Chronic (3) Chronic kidney disease, stage 3 Code(s): N18.3 - CHRONIC KIDNEY DISEASE, STAGE 3 (MODERATE) Status: Chronic (4) CAD (coronary artery disease) Code(s): I25.10 - ATHSCL HEART DISEASE OF [place] CORONARY ARTERY W/O ANG PCTRS Status: Chronic (5) BPH (benign prostatic hyperplasia) Code(s): N40.0 - BENIGN PROSTATIC HYPERPLASIA WITHOUT LOWER URINRY TRACT SYMP Status: Chronic (6) Dyslipidemia Code(s): E78.5 - HYPERLIPIDEMIA, UNSPECIFIED Status: Chronic - Plan Resume atenolol after PPM. Continue hydrochlorothiazide. On Crestor and Vescepa. CAD and BPH stable. Apixaban on hold, pt to have PPM today. Resume hydroxyzine after PPM.
[2019-01-12] MEDS ORDERED: Acetaminophen/Codeine 30-300mg Tablet PO PRN (13:45)
--- NOTE | 2019-01-12 15:18 | CON ---
DATE OF CONSULTATION: HISTORY OF PRESENT ILLNESS: Mr. 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 He was found to be severely bradycardic. He was seen by Cardiology. Recommendation is to have a pacemaker placed with this patient. We are being consulted for his chronic renal failure. 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 This morning, he is feeling better. His beta blockers have been discontinued and this has improved his bradycardia. Cardiology has recommended pacemaker placement. REVIEW OF SYSTEMS: No chest pain or shortness of breath. No nausea. No vomiting. No diarrhea. No constipation. Positive for near-syncopal episode. No gross hematuria. No dysuria. No hematochezia. No melena. No hematemesis. MEDICATIONS: Currently on; 1. Dulcolax 10 mg daily p.r.n. 2. Calcitriol 0.25 mcg daily. 3. Hydralazine 10 mg IV q.6 p.r.n. 4. Hydrochlorothiazide 50 mg daily. 5. Vistaril 25 mg p.r.n. 6. Metoprolol 5 mg IV p.r.n. 7. Nifedipine 60 mg p.o. b.i.d. 8. Rosuvastatin 40 mg nightly. 9. Tamsulosin 0.4 mg nightly. PAST MEDICAL HISTORY: 1. 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 2. Longstanding hypertension. 3. Recent diagnosis of bradycardia. 4. Benign prostatic hypertrophy. 5. Hyperlipidemia. 6. History of coronary artery disease. PAST SURGICAL HISTORY: 1. Status post cardiac cath. 2. Status post CABG. SOCIAL HISTORY: The patient lives in [place], single, lives alone. No children. 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 No history of smoking. No alcohol. No IV drug abuse. Active lifestyle. No blood transfusion. ALLERGIES: NO KNOWN DRUG ALLERGIES. TRAUMA: None. IMMUNIZATIONS: Up to date. HOSPITALIZATIONS: Please see past medical history. FAMILY HISTORY: No family history of ESRD. PHYSICAL EXAMINATION: VITAL SIGNS: Blood pressure is 124/56, heart rate 71, respiratory rate 16, temperature 99.2, and pulse ox 95%. GENERAL: Awake, alert, comfortable, not in distress. SKIN: Adequate turgor. HEENT: He has a pinkish conjunctivae. Anicteric sclerae. NECK: No neck mass. No carotid bruits. No JVD. CHEST: No deformities. LUNGS: Clear breath sounds. HEART: Normal sinus rhythm. No murmur. No gallops. No rubs. ABDOMEN: Globular, soft, nontender. No masses. EXTREMITIES: No edema. No deformities. NEUROLOGIC: Awake and oriented to 3 spheres. Moving all extremities. No tremors. No asterixis. No ataxia. LABORATORY DATA: On 01/12/2019: Sodium 139, potassium 3.7, chloride 104, carbon dioxide 26, BUN 27, and creatinine 1.37. On 01/11/2019: BUN 26 and creatinine 1.59. ASSESSMENT AND PLAN: 1. Acute kidney injury - this is most likely a hemodynamically-mediated renal dysfunction. Much improved after discontinuation of his atenolol. With the improved heart rate, it is possible that the renal perfusion is much improved also. Creatinine is now 1.37, which is near baseline. 2. Chronic renal failure from hypertensive nephropathy, stable. No indication for any dialytic intervention. 3. Bradycardia. The patient is for placement of a pacemaker today. Overall agreed with current management. Job ID: [id number]
[2019-01-12] MEDS ORDERED: Iopamidol 370 76% 50 ML VIAL FS ONE (15:40)
--- NOTE | 2019-01-12 15:42 | RAD ---
PORTABLE CHEST: Date: 01/12/19 PROVIDED CLINICAL HISTORY: Post cardiac device placement. FINDINGS: Comparison with 01/10/19. Cardiac silhouette appears enlarged. Median sternotomy changes are again seen. Interval placement of left subclavian cardiac pacing device with lead tips overlying expected locations of RA and RV. No fo mary ellen consolidation, pleural fluid, or pneumothorax apparent. IMPRESSION: No evidence for an acute cardiopulmonary process. POS: [facility]PC
[2019-01-12] MEDS: Cephalexin 250 MG CAP PO SCH ×2 (15:44→20:39)
--- NOTE | 2019-01-12 16:33 | EKG ---
Test Reason : Blood Pressure : / mmHG Vent. Rate : 060 BPM Atrial Rate : 500 BPM P-R Int : 000 ms QRS Dur : 158 ms QT Int : 504 ms P-R-T Axes : 000 -69 103 degrees QTc Int : 504 ms Electronic atrial pacemaker Left axis deviation Left bundle branch block Abnormal ECG When compared with ECG of 10-JAN-2019 14:20, (Unconfirmed) Previous ECG has undetermined rhythm, needs review Left bundle branch block is now Present Criteria for Anterior infarct are no longer Present Minimal criteria for Inferior infarct are no longer Present Confirmed by DEBRA CHAU, DR. Reyes (4) on 01/12/2019 4:32:51 PM Referred By: [facility] Confirmed By:DR. Amy RICHARDSON MD
[2019-01-12] MEDS: Acetaminophen/Codeine 30-300mg Tablet PO PRN ×2 (18:25→22:40)
[2019-01-12] MEDS: Rosuvastatin 20 MG TAB PO SCH (20:39)
[2019-01-12] MEDS: Tamsulosin HCl 0.4 MG CAP PO SCH (20:39)
[2019-01-13] MEDS: Acetaminophen/Codeine 30-300mg Tablet PO PRN ×2 (03:40→08:21)
[2019-01-13 06:00] LABS: #Eosinphils 0.3 thou/uL (0.0-0.7); #Lymphocytes 2.1 thou/uL (1.20-3.40); #Monocytes 0.8 thou/uL (0.11-0.59); #Neutrophils 5.7 thou/uL (1.40-6.50); %Basophils 0.4 % (0.0-1.0); %Eosinophils 3.2 % (0.0-10.0); %Lymphocytes 23.5 % (21.0-51.0); %Monocytes 9.1 % (0.0-10.0); %Neutrophils 63.7 % (42.0-75.0); Hemoglobin 13.7 g/dL (14.0-18.0); Mean Corpuscular HGB CONC 33.8 g/dL (32.0-36.0); Mean Corpuscular Hemoglobin 31.6 pg (27.0-31.0); Mean Corpuscular Volume 93.5 fL (78.0-98.0); Mean Platelet Volume 7.4 fL (7.4-10.4); Platelet Count 205 thou/uL (130-400); RBC Distribution Width 12.7 % (11.5-14.5); Red Blood Cell (RBC) Count 4.33 mill/uL (4.70-6.10)
[2019-01-13 06:23] LABS: Chloride 102 mmol/L (98-107); Potassium 3.6 mmol/L (3.5-5.1); Sodium 137 mmol/L (136-145)
[2019-01-13 06:24] LABS: Calcium 9.7 mg/dL (7.8-10.44); Glucose 108 mg/dL (83-110)
[2019-01-13 06:26] LABS: Anion Gap 12 mmol/L (10-20); Carbon Dioxide 27 mmol/L (23-31)
[2019-01-13 06:28] LABS: BUN (Urea Nitrogen) 31 mg/dL (8.4-25.7); Calc. Creatinine Clearance 36 mL/min (70-130); Estimated GFR-MDRD 42
[2019-01-13] MEDS: Fluticasone Propionate Nasal Spray 16 gm Bottle NASAL SCH (08:14)
[2019-01-13] MEDS: Calcitriol 0.25 MCG CAP PO SCH (08:15)
[2019-01-13] MEDS: Cephalexin 250 MG CAP PO SCH (08:15)
[2019-01-13] MEDS: Hydrochlorothiazide 25 MG TAB PO SCH (08:15)
[2019-01-13] MEDS: NIFEdipine XL 60 MG TAB PO SCH (08:15)
[2019-01-13] MEDS ORDERED: Atenolol 50 MG TAB PO SCH (09:00)
--- NOTE | 2019-01-13 10:11 | PRG ---
DATE OF SERVICE: 01/13/2019 SUBJECTIVE: Mr. 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 In the interim, he had a pacemaker placed. He is doing well this morning. He voices no new complaints. He denies any chest pain or shortness of breath. OBJECTIVE: VITAL SIGNS: Blood pressure 148/70, heart rate 68, respiratory rate 18, temperature 98.2, and pulse ox 99%. GENERAL: Noted to be awake, sitting comfortable, not in distress. SKIN: Adequate turgor. HEENT: He has pinkish conjunctivae. Anicteric sclerae. NECK: No neck mass. No carotid bruits. No JVD. CHEST: No deformities. LUNGS: Clear breath sounds. No wheezing. No crackles. HEART: Normal sinus rhythm. No murmur. No gallops. No rubs. ABDOMEN: Globular, soft, nontender. No masses. EXTREMITIES: No edema. No deformities. MEDICATIONS: Medications of January 13, 2019, was reviewed. LABORATORY DATA: Laboratories of January 13, 2019; white count 9, hemoglobin 13.7. Sodium 137, potassium 3.6, chloride 102, carbon dioxide 27, BUN 31, creatinine 1.57, glucose 108, calcium 9.7. ASSESSMENT AND PLAN: 1. Acute kidney injury/chronic renal failure. Stable renal function. Continue supportive care. Continue current antihypertensive regimen. No indication for any dialytic intervention. 2. Symptomatic bradycardia, resolved, status post pacemaker placement. 3. Hypertension. Continue current BP medications. The patient is planned for discharge. We will follow him up at outpatient renal clinic. He will give our clinic a call. Overall, agree with current management. Job ID: [id number]
[2019-01-13 12:13] VITALS: BP 137/66; TEMP 97.9
--- NOTE | 2019-01-13 16:25 | PDOC.CTH ---
Cardiology Progress Note - Subjective He is doing well. No syncope No other issues. - Objective Vital Signs Temp Pulse Pulse Pulse Resp BP BP 01/13/19 12:00 97.9 F 61 18 01/13/19 09:57 60 96 126/68 158/74 H 01/13/19 08:15 60 01/13/19 08:00 98.2 F 60 18 BP Pulse Ox Pulse Ox Pulse Ox 01/13/19 12:00 137/66 98 01/13/19 09:57 95 97 01/13/19 08:15 01/13/19 08:00 148/70 H 99 Weight 164 lb 4.8 oz 01/12/19 01/13/19 01/14/19 06:59 06:59 06:59 Intake Total 960 540 960 Output Total 1925 1460 Balance -965 -920 960 - Physical Examination General/Neuro: alert & oriented x3, NAD Neck: no JVD present Lungs: CTA, unlabored respirations Heart: RRR Abdomen: NT/ND Extremities: other: (no edema) - Telemetry Telemetry Rhythm: A paced. - Labs Result Diagrams: 01/13/19 05:50 01/13/19 05:50 Troponin/CKMB Troponin I 0.016 ng/mL (< 0.028) 01/10/19 18:08 - Assessment/Plan 1. Syncope 2. Bradycardia 3. Paroxysmal afib 4. S/P PPM placement. PLAN: - CV stable. - May discharge any time from cardiac perspective. - Follow up with Dr. Dan in 1 month - Restart Ciro now.
--- NOTE | 2019-01-13 18:47 | DIS ---
DATE OF ADMISSION: 01/10/2019 DATE OF DISCHARGE: 01/13/2019 PRIMARY CARE PROVIDER: Dr. Ann Drake DISCHARGE DIAGNOSES: 1. Symptomatic bradycardia. 2. Near syncope. CONDITION OF PATIENT ON THE DAY OF DISCHARGE: Stable. I assessed Mr. Williamson on the day of discharge. He denies any chest pain or shortness of breath. Vital signs are stable. S1 and S2 are heard, regular. Lungs are clear to auscultation bilaterally. CONSULTATIONS DURING THIS HOSPITALIZATION: Cardiology, Dr. Dan; Electrophysiology, Dr. Wolf; Nephrology, Dr. Bernstein. DISCHARGE MEDICATIONS: Atenolol dose was decreased to 50 mg daily. He has been started on Keflex 500 mg q.6 hours for 1 week. Otherwise, no change was made to his pre-admission home medications as dictated on my history and physical note dated January 10, 2019. HOSPITAL COURSE: Mr. Williamson is a pleasant 88-year-old gentleman, who was admitted to [facility] on January 10, 2019, for symptomatic bradycardia secondary to sick sinus syndrome. Please refer to my history and physical note dated January 10, 2019, for further details. He was seen by Cardiology, Electrophysiology, and Nephrology Services. At the time of admission, atenolol was held. On January 12, he underwent permanent pacemaker placement. Atenolol has been restarted at a decreased dose of 50 mg daily. He is being discharged home in a stable condition. On the day of discharge, he has white count of 9000, hemoglobin 13.7, platelet count 205,000, sodium 137, potassium 3.6, blood urea nitrogen 31, and creatinine 1.57. Many thanks for allowing me to participate in your patient's care. Please feel free to contact me with any questions or concerns. FOLLOWUP APPOINTMENTS: Follow up with primary care provider in 3 to 5 days and with Electrophysiology Service in 10 to 14 days. DISCHARGE DESTINATION: Home. TIME SPENT: Total amount of time spent coordinating this discharge: 32 minutes. Job ID: [id number]
== END 2019-01-13 13:51 | disposition home or self-care (01) | DRG 243 ==
LOC: ERS 11:02 → 2NO 15:12
PROVIDERS: ADMIT Internal Medicine; ATTEND Internal Medicine
PROC: 0JH606Z Insertion of Pacemaker, Dual Chamber into Chest Subcutaneous Tissue and Fascia, Open Approach (ICD-10-PCS; principal; 2019-01-12)
PROC: 02HK3JZ Insertion of Pacemaker Lead into Right Ventricle, Percutaneous Approach (ICD-10-PCS; 2019-01-12)
PROC: 02H63JZ Insertion of Pacemaker Lead into Right Atrium, Percutaneous Approach (ICD-10-PCS; 2019-01-12)
DX: I49.5 Sick sinus syndrome (principal); N17.9 Acute kidney failure, unspecified; I25.10 Atherosclerotic heart disease of native coronary artery without angina pectoris; I48.0 Paroxysmal atrial fibrillation; I48.2 Chronic atrial fibrillation; E78.2 Mixed hyperlipidemia; I12.9 Hypertensive chronic kidney disease with stage 1 through stage 4 chronic kidney disease, or unspecified chronic kidney disease; N40.0 Benign prostatic hyperplasia without lower urinary tract symptoms; N18.3 Chronic kidney disease, stage 3 (moderate); I44.7 Left bundle-branch block, unspecified; I44.0 Atrioventricular block, first degree; R09.89 Other specified symptoms and signs involving the circulatory and respiratory systems; Z79.01 Long term (current) use of anticoagulants; Z79.899 Other long term (current) drug therapy; Z95.1 Presence of aortocoronary bypass graft
CPT/HCPCS: 33208; 36005; 36415; 71045; 75820; 80048; 80053; 83880; 84484; 85025; 93005; 93010; 93798; 99152; 99153; C1785; C1898; J0360; J0690; J1580; J2001; J2250; J3010; J3490; Q9967

== ENCOUNTER 2019-04-05 12:44 | Inpatient (IN) | payer MEDICARE, MEDICAID ==
[2019-04-05] MEDS ORDERED: Amiodarone 150 MG/3 ML VIAL ONE ×2 (12:50→12:53)
--- NOTE | 2019-04-05 13:00 | RAD ---
XR Chest 1 View Portable HISTORY: Syncope, hypotension, ventricular tachycardia COMPARISON: 01/13/2019 FINDINGS: Changes of median sternotomy are again seen. Left-sided pacemaker device is again noted. Th e heart size is normal. The lungs are well expanded without focal areas of consolidation, pneumothorax or pleural effusions. IMPRESSION: No radiographic evidence of acute cardiopulmonary process.
[2019-04-05 13:14] LABS: #Eosinphils 0.1 thou/uL (0.0-0.7); #Lymphocytes 3.2 thou/uL (1.20-3.40); #Monocytes 0.9 thou/uL (0.11-0.59); #Neutrophils 6.3 thou/uL (1.40-6.50); %Basophils 0.5 % (0.0-1.0); %Eosinophils 0.9 % (0.0-10.0); %Lymphocytes 30.3 % (21.0-51.0); %Monocytes 8.7 % (0.0-10.0); %Neutrophils 59.7 % (42.0-75.0); Hemoglobin 15.6 g/dL (14.0-18.0); Mean Corpuscular HGB CONC 33.6 g/dL (32.0-36.0); Mean Corpuscular Hemoglobin 31.2 pg (27.0-31.0); Mean Corpuscular Volume 92.9 fL (78.0-98.0); Mean Platelet Volume 7.6 fL (7.4-10.4); Platelet Count 242 thou/uL (130-400); RBC Distribution Width 12.8 % (11.5-14.5); Red Blood Cell (RBC) Count 5.01 mill/uL (4.70-6.10); White Blood Cell (WBC) Count 10.5 thou/uL (4.8-10.8)
[2019-04-05 13:21] LABS: INR-International Normal Ratio 1.2; PTT 28.8 SEC (22.9-36.1); Prothrombin Time 14.9 SEC (12.0-14.7)
[2019-04-05 13:34] LABS: ALT (SGPT) 32 U/L (8-55); AST (SGOT) 31 U/L (5-34); Albumin 4.3 g/dL (3.4-4.8); Alkaline Phosphatase 66 U/L (40-110); Anion Gap 17 mmol/L (10-20); BUN (Urea Nitrogen) 39 mg/dL (8.4-25.7); Bilirubin, Total 0.8 mg/dL (0.2-1.2); CK (CPK) 205 U/L (30-200); Calc. Creatinine Clearance 0 mL/min (70-130); Calcium 9.3 mg/dL (7.8-10.44); Carbon Dioxide 23 mmol/L (23-31); Chloride 106 mmol/L (98-107); Estimated GFR-MDRD 33; Globulin 2.7 g/dL (2.4-3.5); Glucose 122 mg/dL (83-110); Potassium 3.5 mmol/L (3.5-5.1); Sodium 142 mmol/L (136-145)
[2019-04-05] MEDS ORDERED: Aspirin Chewable 81 MG TAB ONE (13:46)
[2019-04-05 14:16] LABS: Bilirubin Negative (Negative); Blood, Urine Negative (Negative); Clarity Clear (Clear); Glucose, Urine (Dipstick) Normal (Negative); Leukocyte Negative Leu/uL (Negative); Nitrite Negative (Negative); Protein, Urine (Dipstick) 10 mg/dL (Neg-Trace); Urobilinogen Normal mg/dL (Less than 2)
[2019-04-05] MEDS ORDERED: Bisacodyl 5 MG TAB PO PRN (16:26)
[2019-04-05 16:46] LABS: Troponin I 0.024 ng/mL (< 0.028)
[2019-04-05 17:13] LABS: Lactic Acid 2.2 mmol/L (0.5-2.2)
--- NOTE | 2019-04-05 17:34 | HP ---
PRIMARY CARE PROVIDER: LOUIE Gray CHIEF COMPLAINT: Near syncope. HISTORY OF PRESENT ILLNESS: Mr. Williamson is a pleasant 88-year-old gentleman, who was seen at [facility] on April 05, 2019. He was hospitalized at this facility from January 10 to of this year for symptomatic bradycardia and near syncope. He had pacemaker placed during that hospitalization. He reports doing well until a few days ago. He reports that he does have to stop after walking short distances. This appears to be secondary to leg pain rather than shortness of breath. He was seen by his wedger and gluer, Dr. Dan. He reportedly had some arterial narrowing in the lower extremities. Otherwise, he reports feeling well. [place] He had a near syncopal episode where he collapsed. He denies any loss of consciousness or head trauma. He was found to be hypotensive and tachycardic. There was also concern regarding ventricular tachycardia. He was therefore brought to the emergency room. He physically denies any chest pain. He denies any palpitations. He denies any nausea or vomiting. He reports feeling weak, which has improved since he came to the emergency room. REVIEW OF SYSTEMS: All systems were reviewed and found to be negative except for the pertinent positives mentioned above. PAST MEDICAL HISTORY: Coronary artery disease, atrial fibrillation, dyslipidemia, hypertension, benign prostate hypertrophy. PAST SURGICAL HISTORY: Coronary artery bypass graft x5, and a permanent pacemaker placement. ALLERGIES: NO KNOWN DRUG ALLERGIES. CURRENT MEDICATIONS: 1. Hydrochlorothiazide 50 mg daily. 2. Atenolol 50 mg daily, the patient reports missing today's dose. 3. Eliquis 2.5 mg 2 times a day. 4. Nifedipine 60 mg 2 times a day. 5. Flomax 0.4 mg daily. 6. Hydroxyzine 25 mg every 8 hours as needed. 7. Calcitriol 0.25 mcg daily. 8. Crestor 40 mg in the evening. 9. Vascepa 2 g 2 times a day. FAMILY HISTORY: Myocardial infarction in both parents. CODE STATUS: I discussed his code status. He is full code. SOCIAL HISTORY: The patient denies tobacco use, alcohol use, or recreational drug use. PHYSICAL EXAMINATION: GENERAL: On examination, Mr. Williamson is awake and alert, not in acute distress. VITAL SIGNS: Blood pressure is 108/81, pulse 98, respiratory rate 17, and oxygen saturation 99% on room air. He is afebrile. EYES: No scleral icterus. No conjunctival pallor. ENT: Moist mucosal membranes. No oropharyngeal erythema or exudates. NECK: Supple, nontender, trachea is midline. RESPIRATORY: Accessory muscles of breathing are not active. Chest wall movements are symmetric bilaterally. LUNGS: Clear to auscultation without wheeze, rhonchi, or crepitations. CARDIOVASCULAR: S1 and S2 are heard, irregular. Peripheral pulses palpable. ABDOMEN: Soft, nontender. Bowel sounds heard. NEUROLOGIC: Cranial nerves 2 through 12 are intact. MUSCULOSKELETAL: Power is 5/5 in all 4 extremities. SKIN: Bilateral lower extremity edema. LYMPHATIC: No cervical lymphadenopathy. PSYCHIATRIC: Normal mood. Normal affect. The patient is oriented to person, place, and time. LABORATORY DATA: Mr. Williamson's labs and investigations were reviewed. Rhythm strips done by EMS show wide-complex tachycardia. I reviewed his 12-lead electrocardiogram, which shows atrial fibrillation with a left bundle-branch block. I also reviewed his chest x-ray, which does not show any pulmonary infiltrates. He has an unremarkable CBC. INR 1.2. Elevated blood urea nitrogen of 39, elevated creatinine of 1.94, last known creatinine was 1.57 on January 13, 2019. Elevated CK of 205, elevated BNP of 554, elevated lactic acid level of 3.5, and negative urinalysis. ASSESSMENT AND PLAN: Mr. Williamson is a pleasant 88-year-old gentleman, who was seen at [facility] on April 05, 2019. His problem list includes: 1. Near syncope: Mr. Williamson is presenting with near syncope in the context of wide-complex tachycardia. He has been started on amiodarone drip. He will be admitted to the hospital for further management on the telemetry floor. We will also interrogate his permanent pacemaker to look for any arrhythmias. 2. Acute on chronic stage 3 renal failure: Mr. Williamson is presenting with mild worsening of stage 3 renal failure. We will hold nephrotoxic medications. We will recheck creatinine in the morning. 3. History of atrial fibrillation: We will continue Eliquis, atenolol, and nifedipine. 4. Benign prostate hypertrophy: Continue Flomax. 5. Dyslipidemia: Continue Crestor. Many thanks for allowing me to participate in your patient's care. Please feel free to contact me with any questions or concerns. LEVEL OF RISK: High. LEVEL OF COMPLEXITY: High. Job ID: [id number]
[2019-04-05 18:28] LABS: Lactic Acid 2.6 mmol/L (0.5-2.2)
[2019-04-05 18:45] LABS: Troponin I 0.046 ng/mL (< 0.028)
[2019-04-05] MEDS ORDERED: Amiodarone 450 MG, Admixture Fee 1 EACH in Dextrose 5% in Water 250 ML IVPB SCH (20:00)
[2019-04-05] MEDS ORDERED: hydrALAZINE 20 MG/ML VIAL SLOW IVP PRN (20:42)
[2019-04-05] MEDS ORDERED: Atenolol 50 MG TAB PO SCH (20:45)
[2019-04-05] MEDS ORDERED: Apixaban 2.5 MG TAB PO SCH (21:00)
[2019-04-05] MEDS: NIFEdipine XL 60 MG TAB PO SCH (21:18)
[2019-04-05] MEDS: Rosuvastatin 20 MG TAB PO SCH (21:19)
[2019-04-05] MEDS: Apixaban 2.5 MG TAB PO SCH (21:20)
--- NOTE | 2019-04-05 21:34 | CON ---
DATE OF CONSULTATION: 04/05/2019 REASON FOR CONSULTATION: Near syncopal episode, atrial fibrillation. HISTORY OF PRESENT ILLNESS: Mr. Williamson is a very pleasant 88-year-old gentleman, patient of Dr. Sergey Dan. The patient states he was doing well. 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 He was found to be hypotensive and tachycardic, brought to the emergency room. REVIEW OF SYSTEMS: CONSTITUTIONAL: No significant weight gain or loss. VISION: No changes. HEARING: No changes. PULMONARY: No cough or wheezing. GASTROINTESTINAL: No nausea, vomiting, or diarrhea. PAST SURGICAL HISTORY: 1. Bypass surgery x5 about a year ago. 2. Permanent pacemaker insertion. ALLERGIES: NONE KNOWN. MEDICATIONS: Prior to admission, 1. Hydrochlorothiazide. 2. Atenolol. 3. Eliquis. 4. Nifedipine. 5. Flomax. 6. Hydroxyzine. 7. Calcitriol. 8. Crestor. 9. Vascepa. SOCIAL HISTORY: No alcohol or tobacco. PHYSICAL EXAMINATION: VITAL SIGNS: Initially, his blood pressure was low as mentioned above. GENERAL: The patient is now resting comfortably, no complaints. NECK: Neck veins are normal. Carotids have normal upstrokes. No bruits. LUNGS: Clear. CARDIAC: Irregularly irregular. ABDOMEN: Soft, nontender. EXTREMITIES: No clubbing or cyanosis. There is mild edema. DIAGNOSTIC STUDIES: EKG, left bundle-branch block pattern with atrial fibrillation underlying rhythm. Pacemaker then interrogated. It looks like he has paroxysmal atrial fibrillation. ASSESSMENT: 1. Paroxysmal atrial fibrillation. 2. Hypotension, probably related to atrial fibrillation with increased rate as well as orthostatic hypotension. PLAN: 1. He is on intravenous amiodarone. 2. Continue beta fatoumata. 3. Continue apixaban. 4. Dr. Dan will resume care tomorrow. Job ID: [id number]
[2019-04-06 00:57] VITALS: BMI 26.8
[2019-04-06] MEDS ORDERED: Amiodarone 450 MG, Admixture Fee 1 EACH in Dextrose 5% in Water 250 ML IVPB SCH (03:15)
[2019-04-06 04:38] LABS: #Eosinphils 0.3 thou/uL (0.0-0.7); #Lymphocytes 2.6 thou/uL (1.20-3.40); #Monocytes 0.9 thou/uL (0.11-0.59); #Neutrophils 5.5 thou/uL (1.40-6.50); %Basophils 0.3 % (0.0-1.0); %Eosinophils 3.1 % (0.0-10.0); %Lymphocytes 27.7 % (21.0-51.0); %Monocytes 9.4 % (0.0-10.0); %Neutrophils 59.4 % (42.0-75.0); Hemoglobin 13.5 g/dL (14.0-18.0); Mean Corpuscular HGB CONC 33.8 g/dL (32.0-36.0); Mean Corpuscular Hemoglobin 31.9 pg (27.0-31.0); Mean Corpuscular Volume 94.4 fL (78.0-98.0); Mean Platelet Volume 7.9 fL (7.4-10.4); Platelet Count 221 thou/uL (130-400); RBC Distribution Width 12.8 % (11.5-14.5); Red Blood Cell (RBC) Count 4.22 mill/uL (4.70-6.10); White Blood Cell (WBC) Count 9.3 thou/uL (4.8-10.8)
[2019-04-06 05:01] LABS: Anion Gap 11 mmol/L (10-20); BUN (Urea Nitrogen) 34 mg/dL (8.4-25.7); Calc. Creatinine Clearance 32 mL/min (70-130); Carbon Dioxide 29 mmol/L (23-31); Chloride 106 mmol/L (98-107); Estimated GFR-MDRD 36; Glucose 114 mg/dL (83-110); Potassium 3.6 mmol/L (3.5-5.1); Sodium 142 mmol/L (136-145)
[2019-04-06] MEDS ORDERED: Atenolol 50 MG TAB PO SCH ×2 (09:00)
[2019-04-06] MEDS ORDERED: FLU VACC TS2019-20(65YR UP)/PF 180 MCG/0.5 ML SYRINGE IM ONE (09:00)
[2019-04-06] MEDS ORDERED: Prevnar 13-Val Conj/PF 0.5 ML SYRINGE IM ONE (09:00)
[2019-04-06] MEDS: Apixaban 2.5 MG TAB PO SCH ×2 (10:18→21:52)
[2019-04-06] MEDS: NIFEdipine XL 60 MG TAB PO SCH ×2 (10:18→21:52)
[2019-04-06] MEDS: Tamsulosin HCl 0.4 MG CAP PO SCH (10:18)
[2019-04-06 10:43] LABS: Hemoglobin 15.2 g/dL (14.0-18.0); Platelet Count 180 thou/uL (130-400)
--- NOTE | 2019-04-06 14:02 | PDOC.HOSPP ---
- Subjective Encounter Date: 04/06/19 Encounter Time: 15:00 Subjective: No complaint.. No lightheadedness.. - Objective Vital Signs & Weight: Vital Signs (12 hours) Temp Pulse Resp BP BP Pulse Ox 04/06/19 10:18 62 159/72 H 04/06/19 07:55 98.1 F 64 16 148/70 H 98 04/06/19 04:00 97.7 F 67 18 151/61 H 95 Weight Weight 170 lb 5 oz I&O: 04/05/19 04/06/19 04/07/19 06:59 06:59 06:59 Intake Total 643.7 Output Total 780 Balance -136.3 Result Diagrams: 04/06/19 10:17 04/06/19 10:17 Hospitalist ROS - Medication Medications: Active Medications Generic Name Dose Route Start Last Admin Trade Name Ionq PRN Reason Stop Dose Admin Apixaban 2.5 mg 04/05/19 21:00 04/06/19 10:18 Eliquis PO 2.5 mg BID DEMAR Administration Nifedipine 60 mg 04/05/19 21:00 04/06/19 10:18 Procardia Xl PO 60 mg BID DEMAR Administration Rosuvastatin Calcium 20 mg 04/05/19 21:00 04/05/19 21:19 Crestor PO 20 mg HS DEMAR Administration Tamsulosin HCl 0.4 mg 04/06/19 09:00 04/06/19 10:18 Flomax PO 0.4 mg DAILY DEMAR Administration - Exam General Appearance: NAD Neck: supple Heart: RRR Respiratory: CTAB Gastrointestinal: soft Extremities: no edema Neurological: no focal deficits Hosp A/P (1) Paroxysmal atrial fibrillation Code(s): I48.0 - PAROXYSMAL ATRIAL FIBRILLATION Status: Acute Plan: On Amiodarone drip.. (2) BPH (benign prostatic hyperplasia) Code(s): N40.0 - BENIGN PROSTATIC HYPERPLASIA WITHOUT LOWER URINRY TRACT SYMP Status: Chronic (3) Chronic kidney disease, stage 3 Code(s): N18.3 - CHRONIC KIDNEY DISEASE, STAGE 3 (MODERATE) Status: Chronic Plan: With superimposed LEOLA, improving.. (4) HTN (hypertension) Code(s): I10 - ESSENTIAL (PRIMARY) HYPERTENSION Status: Chronic (5) Syncope, near Status: Acute Plan: f/u with cardiology.. - Plan Due to paroxismal atrial fibrillation.
[2019-04-06] MEDS: Amiodarone 200 MG TAB PO SCH ×2 (15:45→21:54)
[2019-04-06] MEDS ORDERED: diphenhydrAMINE 25 MG CAP PO PRN (19:27)
[2019-04-06] MEDS: Rosuvastatin 20 MG TAB PO SCH (21:52)
[2019-04-07 06:03] LABS: Anion Gap 11 mmol/L (10-20); BUN (Urea Nitrogen) 26 mg/dL (8.4-25.7); Calc. Creatinine Clearance 36 mL/min (70-130); Calcium 9.2 mg/dL (7.8-10.44); Carbon Dioxide 28 mmol/L (23-31); Chloride 106 mmol/L (98-107); Estimated GFR-MDRD 42; Glucose 106 mg/dL (83-110); Potassium 3.7 mmol/L (3.5-5.1); Sodium 141 mmol/L (136-145)
[2019-04-07] MEDS ORDERED: Amiodarone 200 MG TAB PO SCH (09:00)
[2019-04-07] MEDS: NIFEdipine XL 60 MG TAB PO SCH (10:00)
[2019-04-07] MEDS: Tamsulosin HCl 0.4 MG CAP PO SCH (10:02)
[2019-04-07] MEDS: Apixaban 2.5 MG TAB PO SCH (10:02)
[2019-04-07 10:03] VITALS: BP 134/65
[2019-04-07 10:53] VITALS: TEMP 97.8
--- NOTE | 2019-04-07 11:19 | DIS ---
DATE OF ADMISSION: 04/05/2019 DATE OF DISCHARGE: 04/07/2019 ADMITTING DIAGNOSES: Near syncope. SECONDARY DIAGNOSES: Acute on chronic kidney disease, paroxysmal atrial fibrillation, benign prostatic hypertrophy. DISCHARGE DIAGNOSES: Near syncope, acute on chronic kidney disease, paroxysmal atrial fibrillation, benign prostatic hypertrophy. COTTON WEIGHER OPERATOR: Dr. Randolph. PROCEDURES: Chest x-ray, library monitor. COURSE OF HOSPITALIZATION: Uncomplicated, responded well to management. The patient is clinically stable at this time, being discharged home. DISCHARGE MEDICATIONS: Please see discharge medication reconciliation sheet. PHYSICAL EXAMINATION: GENERAL: Today the patient is alert, oriented, in no distress. VITAL SIGNS: Show a temperature of 97.8, pulse rate 68, respiratory rate 14, blood pressure 134/65. HEAD AND NECK: Normal. HEART: He has regular S1 and S2. LUNGS: Clear. ABDOMEN: Soft. EXTREMITIES: Limbs show no edema. NEUROLOGIC: He moves all extremities. FOLLOWUP: The patient is to follow up with Cardiology and with his PCP. TIME SPENT: Discharge time 32 minutes. Job ID: [id number]
== END 2019-04-07 15:28 | disposition home or self-care (01) | DRG 309 ==
LOC: ERS 12:44 → 2NO 14:51
PROVIDERS: ADMIT Internal Medicine; ATTEND Internal Medicine
DX: I48.0 Paroxysmal atrial fibrillation (principal); N17.9 Acute kidney failure, unspecified; E87.2 Acidosis; I25.10 Atherosclerotic heart disease of native coronary artery without angina pectoris; E78.5 Hyperlipidemia, unspecified; N40.0 Benign prostatic hyperplasia without lower urinary tract symptoms; N18.3 Chronic kidney disease, stage 3 (moderate); I95.1 Orthostatic hypotension; Z95.0 Presence of cardiac pacemaker; Z95.1 Presence of aortocoronary bypass graft; Z79.899 Other long term (current) drug therapy; I12.9 Hypertensive chronic kidney disease with stage 1 through stage 4 chronic kidney disease, or unspecified chronic kidney disease
CPT/HCPCS: 36415; 36416; 71045; 80048; 80053; 81003; 82550; 83605; 83880; 84484; 85025; 85610; 85730; 93005; 96365; 96366; J0282; J7070; Q0163

== ENCOUNTER 2019-04-18 06:28 | Emergency (ER) | payer MEDICARE, OTHER ==
--- NOTE | 2019-04-18 07:27 | RAD ---
RADIOGRAPH CHEST 1 VIEW: DATE: 04/18/2019 HISTORY: 88-year-old male with cardiac dysrhythmia. FINDINGS: There are no airspace densities, pulmonary edema, pneumothorax, or cardiomegaly. The lateral costophr enic angles are sharp. Sternotomy wires. Dual lead left subclavian transvenous permanent pacemaker. IMPRESSION: 1. No acute cardiopulmonary findings. 2. Pacemaker.
[2019-04-18 08:00] LABS: #Eosinphils 0.2 thou/uL (0.0-0.7); #Lymphocytes 1.9 thou/uL (1.20-3.40); #Monocytes 0.9 thou/uL (0.11-0.59); #Neutrophils 7.1 thou/uL (1.40-6.50); %Basophils 0.2 % (0.0-1.0); %Eosinophils 1.6 % (0.0-10.0); %Monocytes 8.4 % (0.0-10.0); %Neutrophils 70.7 % (42.0-75.0); Hemoglobin 14.7 g/dL (14.0-18.0); Mean Corpuscular HGB CONC 33.8 g/dL (32.0-36.0); Mean Corpuscular Volume 94.7 fL (78.0-98.0); Mean Platelet Volume 7.3 fL (7.4-10.4); Platelet Count 275 thou/uL (130-400); RBC Distribution Width 12.8 % (11.5-14.5); White Blood Cell (WBC) Count 10.1 thou/uL (4.8-10.8)
[2019-04-18 08:59] LABS: ALT (SGPT) 40 U/L (8-55); AST (SGOT) 36 U/L (5-34); Albumin 4.3 g/dL (3.4-4.8); Alkaline Phosphatase 68 U/L (40-110); Anion Gap 17 mmol/L (10-20); BUN (Urea Nitrogen) 35 mg/dL (8.4-25.7); Bilirubin, Total 0.5 mg/dL (0.2-1.2); Calc. Creatinine Clearance 0 mL/min (70-130); Calcium 9.8 mg/dL (7.8-10.44); Carbon Dioxide 21 mmol/L (23-31); Chloride 105 mmol/L (98-107); Estimated GFR-MDRD 23; Glucose 107 mg/dL (83-110); Potassium 4.5 mmol/L (3.5-5.1); Protein, Total 7.3 g/dL (5.8-8.1); Sodium 138 mmol/L (136-145)
== END 2019-04-18 09:46 | disposition home or self-care (01) ==
LOC: ERS 06:28
DX: R11.2 Nausea with vomiting, unspecified (principal); R00.0 Tachycardia, unspecified; I25.10 Atherosclerotic heart disease of native coronary artery without angina pectoris; I49.9 Cardiac arrhythmia, unspecified; E78.5 Hyperlipidemia, unspecified; I10 Essential (primary) hypertension; I48.91 Unspecified atrial fibrillation; Z79.899 Other long term (current) drug therapy; Z79.01 Long term (current) use of anticoagulants
CPT/HCPCS: 36415; 71045; 80053; 84484; 85025; 93005

== ENCOUNTER → 2019-04-26 | Day surgery (SDC) | payer MEDICARE, MEDICAID ==
[2019-04-25 16:48] VITALS: BMI 28.0
--- NOTE | 2019-04-29 14:22 | EKG ---
Test Reason : PREOP Blood Pressure : / mmHG Vent. Rate : 068 BPM Atrial Rate : 068 BPM P-R Int : 266 ms QRS Dur : 174 ms QT Int : 536 ms P-R-T Axes : 028 -74 105 degrees QTc Int : 569 ms Sinus rhythm with 1st degree A-V block Left axis deviation Left bundle branch block Abnormal ECG When compared with ECG of 26-APR-2019 10:03, (Unconfirmed) Sinus rhythm has replaced Electronic atrial pacemaker Confirmed by JAMES LOGAN (2) on 04/29/2019 2:22:05 PM Referred By: SPENSER Confirmed By:JAMES LOGAN
--- NOTE | 2019-04-29 14:22 | EKG ---
Test Reason : PREOP Blood Pressure : / mmHG Vent. Rate : 069 BPM Atrial Rate : 069 BPM P-R Int : 000 ms QRS Dur : 174 ms QT Int : 526 ms P-R-T Axes : 000 -73 103 degrees QTc Int : 563 ms Electronic atrial pacemaker Left axis deviation Left bundle branch block Abnormal ECG When compared with ECG of 18-APR-2019 06:34, (Unconfirmed) No significant change was found Confirmed by JAMES LOGAN (2) on 04/29/2019 2:21:56 PM Referred By: SPENSER Confirmed By:JAMES LOGAN
== END ==
LOC: CCL 09:22
PROVIDERS: ATTEND Internal Medicine Cardiovascular Disease
DX: I48.91 Unspecified atrial fibrillation (principal); I10 Essential (primary) hypertension; I25.10 Atherosclerotic heart disease of native coronary artery without angina pectoris; E78.5 Hyperlipidemia, unspecified; Z53.9 Procedure and treatment not carried out, unspecified reason; Z95.1 Presence of aortocoronary bypass graft
CPT/HCPCS: 93005; 93010

== ENCOUNTER 2019-08-15 11:08 | Emergency (ER) | payer MEDICARE, MEDICAID ==
--- NOTE | 2019-08-15 13:14 | RAD ---
XR Hand Rt 3 View STANDARD History: Fall Comparison: None. Findings: Multilevel interphalangeal joint space narrowing with hypertrophic osteophyte formation. Co ncern for a nondisplaced fracture fifth metacarpal head/neck. Soft tissues are edematous around the wrist. Mild metacarpal phalangeal joint space narrowing. High-grade degenerative disease of the thumb interphalangeal joint. Impression: 1. Concern for nondisplaced fracture fifth metacarpal neck. 2. 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
--- NOTE | 2019-08-15 13:16 | CT ---
EXAM: Brain CT scan Without contrast: HISTORY: Injury from trauma COMPARISON: None FINDINGS: Left periorbital soft tissue swelling. Evidence for fractures involving the nasal bone with some displacement as well as the left lamina pap yracea and the posterior left maxillary sinus with fluid within the sinus as well as some bilateral sinus mucosal disease. Atrophy and chronic white matter ischemic change. No focal mass or midline shift. No intra or extra-axial hemorrhage. The mastoids appear clear. IMPRESSION: No mass or bleed. Left periorbital soft tissue swelling. Nasal and facial fractures on the left side as above. Consider follow-up facial bone CT for further assessment.
--- NOTE | 2019-08-15 13:16 | RAD ---
XR Hand Lt 3 View STANDARD History: Fall Comparison: None. Findings: No acute displaced fracture or malalignment. High-grade interphalangeal joint space narrowi ng and hypertrophic osteophyte formation of all digits. Mild degenerative disease of the thumb carpometacarpal joint. Impression: 1. No acute displaced fracture or malalignment. 2. Findings of erosive osteoarthritis.
[2019-08-15 13:20] LABS: #Basophils 0.1 thou/uL (0.0-0.2); #Eosinphils 0.4 thou/uL (0.0-0.7); #Lymphocytes 1.7 thou/uL (1.20-3.40); #Monocytes 0.9 thou/uL (0.11-0.59); #Neutrophils 8.2 thou/uL (1.40-6.50); %Basophils 0.5 % (0.0-1.0); %Eosinophils 3.3 % (0.0-10.0); %Monocytes 7.8 % (0.0-10.0); %Neutrophils 73.3 % (42.0-75.0); Hemoglobin 13.8 g/dL (14.0-18.0); Mean Corpuscular HGB CONC 33.7 g/dL (32.0-36.0); Mean Corpuscular Hemoglobin 30.7 pg (27.0-31.0); Platelet Count 252 thou/uL (130-400); RBC Distribution Width 13.1 % (11.5-14.5); Red Blood Cell (RBC) Count 4.48 mill/uL (4.70-6.10); White Blood Cell (WBC) Count 11.2 thou/uL (4.8-10.8)
[2019-08-15] MEDS ORDERED: cefTRIAXone\\ROCEPHIN 2 GM VIAL ONE (13:34)
[2019-08-15] MEDS ORDERED: Adacel (T-DAP) 0.5 ML SYRINGE ONE (13:34)
[2019-08-15] MEDS ORDERED: Fentanyl 100 MCG/2 ML VIAL ONE ×2 (13:34→16:22)
--- NOTE | 2019-08-15 13:46 | CT ---
CT of thecervical spine: 08/15/2019 COMPARISON:None available HISTORY:Injury, trauma TECHNIQUE: Serial axial CT imaging at2.5 mm intervals from theskull base through lung apices without contrast. Coronal and sagittal reformatted imaging obtained. Findings:Imaged lung apices unremarkable. Incompletely imaged transvenous pacing leads present. The dens, C1-2 articulation, occipital condyles, craniocervical junction, and cervicothoracic junctio n, and atlantoaxial interspace demonstrate no acute findings. No definite abnormal prevertebral soft tissue swelling. The prevertebral soft tissues are slightly pr ominent anterior to the C6-7 level, likely on the basis of soft tissue structures, including the esophagus, as well as anterior disc osteophyte complex. Prominent degenerative change at the atlantoaxial interspace. At C3-4, there is disc space narrowing with degenerative endplate change as well as anterior and posterior osteophyte as well as bilateral facet and uncovertebral osteophyte. There is bilateral facet hypertrophy at the C4-5 level, left greater than right. There is disc space narrowing with degenerative endplate change at C5-6 and C6-7 with bilateral facet and uncovertebral osteophyte formation. There is atherosclerotic calcification in the region of the distal CCA/proximal ICA bilaterally. No displaced fracture or evidence of dislocation. Impression:Prominent multilevel cervical spine degenerative change as described above. No evidence fo r acute cervical spine fracture or dislocation is apparent. There is partially imaged fracture suspected involving the mandible on the left.
[2019-08-15 14:12] LABS: ALT (SGPT) 74 U/L (8-55); AST (SGOT) 61 U/L (5-34); Albumin 3.6 g/dL (3.4-4.8); Alkaline Phosphatase 97 U/L (40-110); Anion Gap 13 mmol/L (10-20); BUN (Urea Nitrogen) 21 mg/dL (8.4-25.7); Bilirubin, Total 0.6 mg/dL (0.2-1.2); Calc. Creatinine Clearance 0 mL/min (70-130); Calcium 9.2 mg/dL (7.8-10.44); Carbon Dioxide 23 mmol/L (23-31); Chloride 107 mmol/L (98-107); Estimated GFR-MDRD 33; Globulin 2.7 g/dL (2.4-3.5); Glucose 119 mg/dL (83-110); Potassium 4.3 mmol/L (3.5-5.1); Protein, Total 6.3 g/dL (5.8-8.1); Sodium 139 mmol/L (136-145)
--- NOTE | 2019-08-15 15:31 | CT ---
CT MAXILLOFACIAL NONCONTRAST: Date: 08/15/2019 HISTORY: 88-year-old male status post acute cervical trauma. FINDINGS: Acute, comminuted, and displaced nasal bone fracture with diffuse nasal soft tissue swelling/edema. Left orbital floor fracture with 1.7 cm transverse diameter defect at the floor, with inferior displa cement of fracture fragments a distance of 0.9 cm inferiorly into the superior aspect of the left max illary sinus, with fractures surrounded by hematoma within the maxillary antrum. Moderate size left supraorbital superficial soft tissue hematoma containing multiple foci of gas. Lef t preseptal edema extends posteriorly into the far anterior portion of the extraconal left orbit, ebony rounding the anterior portion of the left globe. Bilateral globes are intact. No gas within the orbit . There is mild intraconal edema in the left orbit that extends far posteriorly within the orbit. No displaced fracture of the lamina papyracea, lateral wall, roof; or superior, inferior and lateral orb ital rims. Zygomatic arches and pterygoid plates are intact. No fracture of the mandible or maxilla identified. IMPRESSION: 1. Acute, traumatic, blowout fracture of the left orbital floor. 2. Mild intraorbital edema. 3. Prominent left supraorbital soft tissue hematoma and laceration. 4. Comminuted, acute, displaced nasal bone fractures. POS: CET
--- NOTE | 2019-08-18 16:13 | EKG ---
Test Reason : Blood Pressure : / mmHG Vent. Rate : 065 BPM Atrial Rate : 065 BPM P-R Int : 000 ms QRS Dur : 100 ms QT Int : 452 ms P-R-T Axes : 000 -50 059 degrees QTc Int : 470 ms Electronic atrial pacemaker Left axis deviation Inferior infarct , age undetermined Anteroseptal infarct , age undetermined Abnormal ECG Confirmed by TRACE LIVE M.D. ([id number]), sound editor KEVIN BARAJAS ([id number]) on 08/18/2019 4:13:11 PM Referred By: Confirmed By:TRACE LIVE M.D.
== END 2019-08-15 16:48 | disposition short-term general hospital (02) ==
LOC: ERS 11:08
DX: S05.32XA Ocular laceration without prolapse or loss of intraocular tissue, left eye, initial encounter (principal); E78.5 Hyperlipidemia, unspecified; I48.91 Unspecified atrial fibrillation; I10 Essential (primary) hypertension; K21.9 Gastro-esophageal reflux disease without esophagitis; Z79.899 Other long term (current) drug therapy; W01.198A Fall on same level from slipping, tripping and stumbling with subsequent striking against other object, initial encounter
CPT/HCPCS: 36415; 70450; 70486; 72125; 80053; 85025; 87040; 90471; 90715; 93005; 94760; 96361; 96365; 96375; 96376; J0696; J3010

== ENCOUNTER 2020-02-07 09:09 | Observation (INO) | payer MEDICARE, MEDICAID, OTHER ==
[2020-02-07] MEDS ORDERED: Aspirin Chewable 81 MG TAB ONE (09:42)
[2020-02-07 09:47] LABS: #Eosinphils 0.3 thou/uL (0.0-0.7); #Lymphocytes 2.5 thou/uL (1.20-3.40); #Monocytes 0.8 thou/uL (0.11-0.59); #Neutrophils 3.2 thou/uL (1.40-6.50); %Basophils 0.7 % (0.0-1.0); %Eosinophils 3.9 % (0.0-10.0); %Lymphocytes 36.5 % (21.0-51.0); %Monocytes 12.3 % (0.0-10.0); %Neutrophils 46.6 % (42.0-75.0); Hemoglobin 15.7 g/dL (14.0-18.0); Mean Corpuscular HGB CONC 32.9 g/dL (32.0-36.0); Mean Corpuscular Hemoglobin 30.5 pg (27.0-31.0); Mean Corpuscular Volume 92.7 fL (78.0-98.0); Mean Platelet Volume 7.1 fL (7.4-10.4); Platelet Count 222 thou/uL (130-400); RBC Distribution Width 13.1 % (11.5-14.5); Red Blood Cell (RBC) Count 5.15 mill/uL (4.70-6.10); White Blood Cell (WBC) Count 6.8 thou/uL (4.8-10.8)
--- NOTE | 2020-02-07 09:51 | RAD ---
EXAM: CHEST ONE VIEW HISTORY: Chest pain for 3 weeks. COMPARISON: 04/18/2019 FINDINGS: Postoperative changes related to CABG are again noted. Left subclavian cardiac pacemaker device remai ns in place. Cardiac silhouette is magnified by projection and patient rotation. Pulmonary vasculature is within normal limits. Left lung apex is excluded from view due to overlying jaw and ma ndible. Minimal atelectasis is present at the left lung base. Lungs are otherwise clear. Osteopenia is present. IMPRESSION: Exclusion of the left lung apex, there is otherwise no acute cardiopulmonary process.
[2020-02-07 10:13] LABS: ALT (SGPT) 32 U/L (8-55); AST (SGOT) 34 U/L (5-34); Albumin 3.9 g/dL (3.4-4.8); Alkaline Phosphatase 76 U/L (40-110); Anion Gap 14 mmol/L (10-20); BUN (Urea Nitrogen) 28 mg/dL (8.4-25.7); Bilirubin, Total 0.6 mg/dL (0.2-1.2); CK (CPK) 122 U/L (30-200); Calc. Creatinine Clearance 0 mL/min (70-130); Calcium 9.2 mg/dL (7.8-10.44); Carbon Dioxide 24 mmol/L (23-31); Chloride 104 mmol/L (98-107); Estimated GFR-MDRD 35; Globulin 3.1 g/dL (2.4-3.5); Glucose 104 mg/dL (83-110); Potassium 3.7 mmol/L (3.5-5.1); Sodium 138 mmol/L (136-145)
[2020-02-07] MEDS ORDERED: Morphine 4 MG/ML VIAL ONE (10:32)
--- NOTE | 2020-02-07 11:55 | PDOC.HHP ---
Hospitalist HPI - History of Present Illness chest pain History of Present Illness: Mr. Williamson is an 89 year-old male with a PMHx of CAD s/p CABG, HLD, HTN, GERD, a-fib not on AC, CKD, who presented to the ED on 02/07/2020 for 2-3 weeks of chest pain. Pt describes the pain as a pressure over his L chest wall that is constant and non-reproducible. The pain does not radiate. Denies any aggravating or alleviating factors. No correlation with food. Denies any recent life stressors. Denies SOB, palpitations, dizziness, or lightheadedness. Denies changes in vision, numbness or tingling. Of note pt recently had presyncopal episode/fall last August. At that time a pacemaker was placed. Pt reports that while he was initially on Eliquis for his a-fib but after discussing risks vs benefits pt is no longer on AC. Pt lives alone in an apartment complex in [facility]. Follows with [facility]. He is ambulatory at baseline. In ED work-up included EKG which showed LBBB, negative for Scarbossa's criteria. Initial troponin 0.013. CXR negative for any acute process. H/H stable at 15.7/47.8, BUN/Cr 28/1.84. Na 138, K 3.7. AST/ALT 34/32. Pt received 325 mg of ASA, morphine, and nitroglycerin. ED Course: Vital signs show temperature 97.7, blood pressure 138/70, pulse rate of 83 with respiration of 16 Hospitalist ROS - Review of Systems Constitutional: denies: fever, chills, sweats, weakness, malaise, other Eyes: denies: pain, vision change, conjunctivae inflammation, eyelid inflammation, redness, other ENT: denies: ear pain, ear discharge, nose pain, nose discharge, nose congestion , mouth pain, mouth swelling, throat pain, throat swelling, other Respiratory: denies: cough, dry, shortness of breath, hemoptysis, SOB with excertion, pleuritic pain, sputum, wheezing, other Cardiovascular: reports: chest pain. denies: palpitations, orthopnea, paroxysmal noc. dyspnea, edema, light headedness, other Gastrointestinal: denies: nausea, vomiting, abdominal pain, diarrhea, constipation, melena, hematochezia, other Genitourinary: denies: dysuria, frequency, incontinence, hematuria, retention, other Musculoskeletal: denies: neck pain, shoulder pain, arm pain, back pain, hand pain, leg pain, foot pain, other Skin: denies: rash, lesions, leah, bruising, other Neurological: denies: weakness, numbness, incoordination, change in speech, confusion, seizures, other All other systems reviewed; all pertinent +/- noted in HPI/Subj - Medication Medications: Patient unable to recall all of his home medicationwill confirm with the pharmacy Hospitalist History - Past Medical History Cardiac: reports: AFIB, CAD, HTN, Hyperlipidemia Pulmonary: reports: hypertension Gastrointestinal: reports: GERD Heme/Onc: reports: no pertinent history Hepatobiliary: reports: no pertinent history Psych: reports: no pertinent history Musculoskeletal: reports: no pertinent history Rheumatologic: reports: no pertinent history Infectious Disease: reports: no pertinent history ENT: reports: Allergic rhinitis Renal/: reports: Chronic renal insuff Endocrine: reports: no pertinent history Dermatology: reports: no pertinent history - Past Surgical History Past Surgical History: reports: CABG - Family History Family History: reports: cardiac disorder - Social History Smoking Status: Never smoker Alcohol: reports: None Drugs: reports: none Living Situation: Alone Activity level: independent ambulation - Exam General Appearance: NAD, awake alert Eye: PERRL, anicteric sclera ENT: normocephalic atraumatic, no oropharyngeal lesions, moist mucosa Neck: supple, symmetric, no JVD, no thyromegaly, no lymphadenopathy, no carotid bruit Heart: RRR, no murmur, no rubs, normal peripheral pulses Heart - other findings: S4 Respiratory: CTAB, no wheezes, no rales, no ronchi, normal chest expansion, no tachypnea, normal percussion Gastrointestinal: soft, non-tender, non-distended, normal bowel sounds, no palpable masses, no hepatomegaly, no splenomegaly, no bruit Extremities: no cyanosis, no clubbing, no edema Skin: normal turgor, no lesions, no rashes Neurological: cranial nerve grossly intact, normal sensation to touch, no weakness, no focal deficits, no new deficit Musculoskeletal: normal tone, normal strength, no muscle wasting Psychiatric: normal affect, normal behavior, A&O x 3 Hospitalist Results - Labs Result Diagrams: 09/03/20 09:24 02/07/20 09:24 Lab results: WBC 6.8 thou/uL (4.8-10.8) 02/07/20 09:24 Hgb 15.7 g/dL (14.0-18.0) 02/07/20 09:24 Hct 47.8 % (42.0-52.0) 02/07/20 09:24 MCV 92.7 fL (78.0-98.0) 02/07/20 09:24 Plt Count 222 thou/uL (130-400) 02/07/20 09:24 Neutrophils % 46.6 % (42.0-75.0) 02/07/20 09:24 Sodium 138 mmol/L (136-145) 02/07/20 09:24 Potassium 3.7 mmol/L (3.5-5.1) 02/07/20 09:24 Chloride 104 mmol/L (98-107) 02/07/20 09:24 Carbon Dioxide 24 mmol/L (23-31) 02/07/20 09:24 BUN 28 mg/dL (8.4-25.7) H 02/07/20 09:24 Creatinine 1.84 mg/dL (0.7-1.3) H 02/07/20 09:24 Glucose 104 mg/dL (83-110) 02/07/20 09:24 Calcium 9.2 mg/dL (7.8-10.44) 02/07/20 09:24 Total Bilirubin 0.6 mg/dL (0.2-1.2) 02/07/20 09:24 AST 34 U/L (5-34) 02/07/20 09:24 ALT 32 U/L (8-55) 02/07/20 09:24 Alkaline Phosphatase 76 U/L (40-110) 02/07/20 09:24 Creatine Kinase 122 U/L (30-200) 02/07/20 09:24 Troponin I 0.013 ng/mL (< 0.028) 02/07/20 09:24 Serum Total Protein 7.0 g/dL (5.8-8.1) 02/07/20 09:24 Albumin 3.9 g/dL (3.4-4.8) 02/07/20 09:24 - EKG Interpretation EKG: Left bundle branch blockreviewed by me - Radiology Interpretation Chest x-ray Status: image reviewed by me Additional Comment: No infiltrate or edema Hospitalist H&P A/P - Problem (1) Chest pain Code(s): R07.9 - CHEST PAIN, UNSPECIFIED Status: Acute (2) Paroxysmal atrial fibrillation Code(s): I48.0 - PAROXYSMAL ATRIAL FIBRILLATION Status: Acute (3) CAD (coronary artery disease) Code(s): I25.10 - ATHSCL HEART DISEASE OF [place] CORONARY ARTERY W/O ANG PCTRS Status: Chronic (4) Dyslipidemia Code(s): E78.5 - HYPERLIPIDEMIA, UNSPECIFIED Status: Chronic (5) HTN (hypertension) Code(s): I10 - ESSENTIAL (PRIMARY) HYPERTENSION Status: Chronic (6) Allergic rhinitis Code(s): J30.9 - ALLERGIC RHINITIS, UNSPECIFIED Status: Acute (7) Chronic kidney disease, stage 3 Code(s): N18.3 - CHRONIC KIDNEY DISEASE, STAGE 3 (MODERATE) Status: Chronic - Plan Plan: Chest pain: 89M with hx of CAD s/p CABG, a-fib not on AC with pacemaker in place, who presented with chest pain described as a constant chest pressure over the past three weeks. EKG changes include new LBB, Scarbosa's criteria negative. Initial troponin negative. CXR no acute process. Vital signs stable. Dr. Randolph of cardiology consulted in the ED who recommended admission, ASA, morphine, and nitro. Will await official cardiology reccs. PLAN: -Cardiology consulted, recs appreciated -Trend troponin -ASA 325 mg -Morphine for pain -Nitro -PPM interrogation -Telemetry monitoring CAD: Hx of CAD s/p CABG x5 in 2018. Follows with [facility]. See chest pain section. PLAN: -Continue ASA, metoprolol -Hold nifedipine in setting of R/o ACS -Cardiology following Atrial Fibrillation: Hx of a-fib not on AC. Was previously on Eliquis, however pt had fall in August of 2018 and after risks vs benefits discussion with contract runner, AC was stopped. Pt maintained on amiodarone, metoprolol, and nifedipine. Pt also has PPM which was placed dt symptomatic bradycardia by Dr. Chaparro. EKG shows NS with a-pacing. PLAN: -Continue home amiodarone 200 mg -Continue home metoprolol 50 mg daily -Hold home nifedipine 2/2 ACS r/o -Tele -Cardiology recs appreciated Chronic Kidney Disease: History of CKD baseline Cr 1.6-1.7. Cr on admission is 1.84. BUN 28. Bicarb 24. Likely mildly pre-renal. PLAN: -Trend Cr -Continue home calcitriol 0.5 mg -Avoid nephrotoxic agents where possible Hyperlipidemia: HLD on vascepa. Will continue. 2 grams BID. Hypertension: Hx of HTN. Cont. home metoprolol. Hold home nifedipine. Monitor BP. GERD: Hx of GERD. Will continue home pantoprazole. Allergic Rhinitis: Hx of allergic rhinitis. Pt takes daily hydroxazine. Will continue home medication. DVT prophylaxis: SQ Heparin FULL CODE Case discussed with attending physician, Dr. Sarah. Addendum - Physician - Physician Attestation Date/Time: 02/07/20 1354 I personally performed or re-performed the physical examination and medical decision making. I have verified all PA documentation or findings, including history, physical exam and/or medical decision making. 89-year-old male with coronary artery disease and paroxysmal atrial fibrillation not on anticoagulation presents with chest discomfort that has been ongoing for last 2 weeks. It is left-sided without any nausea, vomiting, lightheadedness or palpitations. Vital signs stable. Lungs were clear to auscultation bilaterally. Heart S1-S2 present. Abdomen was soft nontender bowel sounds present EKG showed paced rhythm with left bundle branch block. Cardiology has been consulted. Will resume aspirin. Continue amiodarone with Toprol-XL. Monitor troponins. Continue other home medications once verified. Pacemaker interrogation. Patient understands the above plan of care. He is full code and makes his own decision with the help of his family.
[2020-02-07 12:32] VITALS: BMI 24.7
[2020-02-07] MEDS ORDERED: Morphine 2 MG/ML VIAL SLOW IVP PRN (13:37)
[2020-02-07] MEDS ORDERED: Nitroglycerin 0.4 MG TAB (25 Tab Bottle) SL PRN (13:37)
[2020-02-07] MEDS ORDERED: Aspirin Chewable 81 MG TAB PO SCH (13:45)
[2020-02-07] MEDS: Heparin 5,000 UNITS/ML VIAL SC SCH ×2 (15:33→21:10)
[2020-02-07] MEDS: hydrOXYzine Pamoate 25 mg Capsule PO SCH ×2 (15:33→21:10)
[2020-02-07] MEDS: Docusate 100 MG CAP PO SCH (21:11)
--- NOTE | 2020-02-07 23:35 | CON ---
DATE OF CONSULTATION: HISTORY OF PRESENT ILLNESS: The patient is an elderly gentleman with a history of coronary artery disease, who presents with recurrent chest discomfort. In April 2018, the patient underwent coronary artery bypass graft surgery x5. The patient also has a history of paroxysmal atrial fibrillation and tachy-leroy syndrome. The patient subsequently underwent placement of an electronic pacemaker. The patient was placed on amiodarone. He is felt to be a poor patient for chronic anticoagulation. He has subsequently done well. The patient was admitted last year with rapid atrial fibrillation. He presents to the emergency room with a 3 -week history of persistent chest discomfort. The chest discomfort is left-sided. He was found initially to have been markedly hypertensive. The patient states this discomfort is persistent throughout the day. The patient states he has been compliant with his medications. PAST MEDICAL HISTORY: 1. Coronary artery disease. 2. Atrial fibrillation. 3. Renal insufficiency. 4. History of pacemaker placement. PAST SURGICAL HISTORY: Coronary bypass graft surgery. SOCIAL HISTORY: Nonsmoker. MEDICATIONS: See nursing list. PHYSICAL EXAMINATION: GENERAL: A well-developed gentleman, in no acute distress. VITAL SIGNS: Blood pressure 129/67. NECK: No jugular venous distention. LUNGS: Clear to auscultation. HEART: Regular rate and rhythm. Normal S1 and S2. 1/6 systolic murmur. ABDOMEN: Nondistended. EXTREMITIES: Showed trace edema. LABORATORY DATA: Sodium 138, potassium 3.7, chloride 104, bicarbonate 24, BUN 20, creatinine 1.8, glucose 104. Troponin 0.021. TSH is 1.01. White blood cell count 6.8, hemoglobin 15.7, hematocrit 47.8, and platelets are 222. EKG Dual- chamber electronic pacemaker. IMPRESSION: 1. Chest pain, atypical. 2. History of coronary artery bypass surgery. 3. History of atrial fibrillation. 4. Pacemaker placement. 5. Renal insufficiency. This gentleman has atypical chest pain, it has been present for 3 weeks. His troponin level is unremarkable. The patient's chest discomfort is most likely musculoskeletal. From a cardiac standpoint, the patient would continue on his present medical regimen. We will follow this patient with you through his hospitalization. Job ID: [id number] MTDD
[2020-02-08 05:08] LABS: ALT (SGPT) 32 U/L (8-55); AST (SGOT) 35 U/L (5-34); Albumin 3.4 g/dL (3.4-4.8); Alkaline Phosphatase 66 U/L (40-110); Anion Gap 13 mmol/L (10-20); BUN (Urea Nitrogen) 23 mg/dL (8.4-25.7); Bilirubin, Total 0.6 mg/dL (0.2-1.2); Calc. Creatinine Clearance 31 mL/min (70-130); Calcium 8.7 mg/dL (7.8-10.44); Carbon Dioxide 24 mmol/L (23-31); Cardiac Risk 7.4 (Less than 4.5); Chloride 107 mmol/L (98-107); Cholesterol 177 mg/dl (< 200 Desired); Estimated GFR-MDRD 39; Globulin 2.5 g/dL (2.4-3.5); Glucose 91 mg/dL (83-110); HDL Cholesterol 24 mg/dL (>60 Neg Risk); LDL Cholesterol, Calculated 118 mg/dL; Protein, Total 5.9 g/dL (5.8-8.1); Sodium 140 mmol/L (136-145); Triglycerides 173 mg/dL (Less than 150)
[2020-02-08] MEDS: hydrOXYzine Pamoate 25 mg Capsule PO SCH (05:25)
[2020-02-08 06:09] LABS: #Eosinphils 0.4 thou/uL (0.0-0.7); #Lymphocytes 2.5 thou/uL (1.20-3.40); #Monocytes 0.8 thou/uL (0.11-0.59); #Neutrophils 2.7 thou/uL (1.40-6.50); %Basophils 0.7 % (0.0-1.0); %Eosinophils 5.9 % (0.0-10.0); %Lymphocytes 38.6 % (21.0-51.0); %Neutrophils 42.8 % (42.0-75.0); Hemoglobin 13.9 g/dL (14.0-18.0); Mean Corpuscular HGB CONC 31.7 g/dL (32.0-36.0); Mean Corpuscular Hemoglobin 29.5 pg (27.0-31.0); Mean Corpuscular Volume 93.1 fL (78.0-98.0); Mean Platelet Volume 8.2 fL (7.4-10.4); Platelet Count 213 thou/uL (130-400); RBC Distribution Width 13.5 % (11.5-14.5); White Blood Cell (WBC) Count 6.4 thou/uL (4.8-10.8)
[2020-02-08 08:12] VITALS: BP 147/72; TEMP 98.1
[2020-02-08] MEDS: Docusate 100 MG CAP PO SCH (08:17)
[2020-02-08] MEDS: Heparin 5,000 UNITS/ML VIAL SC SCH (08:17)
[2020-02-08] MEDS ORDERED: Calcitriol 0.25 MCG CAP PO SCH (09:00)
[2020-02-08] MEDS ORDERED: Aspirin 81 mg Enteric Coated Tablet PO SCH (09:00)
[2020-02-08] MEDS ORDERED: Amiodarone 200 MG TAB PO SCH (09:00)
--- NOTE | 2020-02-08 09:53 | DIS ---
DATE OF ADMISSION: 02/07/2020 DATE OF DISCHARGE: 02/08/2020 DISCHARGE DISPOSITION: Home. FOLLOWUP: 1. Follow up with primary care physician, Ann Drake NP in 1 week. 2. Follow up with Cardiology, Dr. Dan in 2 weeks. The patient was seen and examined on the day of discharge. Denies any new complaints. No chest pain, shortness of breath, or palpitations reported. BRIEF HOSPITAL COURSE: The patient is an 89-year-old male with coronary artery disease, status post CABG; hypertension; and hyperlipidemia, presented to the emergency room with chest tightness. Please refer to the history and physical for further details. The patient was admitted to the hospital with a diagnosis of chest discomfort, rule out acute coronary syndrome. Serial troponins were negative. He was evaluated by Cardiology Dr. Sergey Dan. Dr. Dan recommended medical management. No changes in his medications were made. A prescription for sublingual nitroglycerin was sent. He was also advised to monitor his blood pressure on the daily basis. He was also advised to reduce Procardia XL to 60 mg daily if his blood pressure is below 140. He appears stable for discharge. Patient declined home health care. FINAL DIAGNOSES: 1. Chest discomfort, acute coronary syndrome ruled out. 2. Coronary artery disease, status post coronary artery bypass grafting. 3. Paroxysmal atrial fibrillation, not a candidate for anticoagulation. 4. Chronic kidney disease stage 3. 5. History of pacemaker placement. 6. Hypertension. 7. Hyperlipidemia. 8. Gastroesophageal reflux disease. 9. History of allergic rhinitis. SIGNIFICANT LABORATORY DATA: Fasting lipid showed triglyceride 173, cholesterol 177, and LDL 118 with HDL 24, maximum troponin 0.022. Creatinine on admission was 1.84, at discharge was 1.68. Hemoglobin 15.7 with hematocrit 47.9. The patient understands the above plan of care. Job ID: [id number] [facility]
[2020-02-08 13:52] LABS: SARS-CoV-2 MS2 Positive; SARS-CoV-2 N Gene Negative; SARS-CoV-2 S Gene Negative; SARS-CoV-2 by NAA Not Detected (NotDetected); SARS-CoV-2 orf1ab Negative
== END 2020-02-08 13:16 | disposition home or self-care (01) ==
LOC: ERS 09:09 → 2SW 12:19
PROVIDERS: ADMIT Internal Medicine; ATTEND Internal Medicine
DX: R07.89 Other chest pain (principal); I25.10 Atherosclerotic heart disease of native coronary artery without angina pectoris; I48.0 Paroxysmal atrial fibrillation; I12.9 Hypertensive chronic kidney disease with stage 1 through stage 4 chronic kidney disease, or unspecified chronic kidney disease; N18.3 Chronic kidney disease, stage 3 (moderate); E78.5 Hyperlipidemia, unspecified; K21.9 Gastro-esophageal reflux disease without esophagitis; I44.7 Left bundle-branch block, unspecified; Z79.899 Other long term (current) drug therapy; Z95.0 Presence of cardiac pacemaker; Z95.1 Presence of aortocoronary bypass graft; Z20.828 Contact with and (suspected) exposure to other viral communicable diseases
CPT/HCPCS: 36600; 71045; 80053; 80061; 82550; 84484 ×2; 85025; 93005; 99285; U0003; 36415; 84443; 87635; 96372; G0378; J1644; J2270; Q0177

== ENCOUNTER 2020-10-29 10:13 | Outpatient (CLI) | payer MEDICARE, OTHER | END 2020-10-29 10:14 | disposition home or self-care (01) | LOC: RAD-FRANK 10:13 | PROVIDERS: ATTEND Nurse Practitioner Family | DX: M79.672 Pain in left foot (principal) ==

== ENCOUNTER 2020-11-19 11:31 | Inpatient (IN) | payer MEDICARE, MEDICAID ==
[2020-11-19 13:06] LABS: #Eosinphils 0.2 thou/uL (0.0-0.7); #Neutrophils 8.6 thou/uL (1.40-6.50); %Basophils 0.1 % (0.0-1.0); %Eosinophils 1.4 % (0.0-10.0); %Lymphocytes 16.7 % (21.0-51.0); %Monocytes 8.1 % (0.0-10.0); %Neutrophils 73.6 % (42.0-75.0); Hemoglobin 15.6 g/dL (14.0-18.0); Mean Corpuscular HGB CONC 32.9 g/dL (32.0-36.0); Mean Corpuscular Hemoglobin 31.1 pg (27.0-31.0); Mean Corpuscular Volume 94.5 fL (78.0-98.0); Mean Platelet Volume 7.1 fL (7.4-10.4); Platelet Count 258 thou/uL (130-400); RBC Distribution Width 12.4 % (11.5-14.5); Red Blood Cell (RBC) Count 5.04 mill/uL (4.70-6.10); White Blood Cell (WBC) Count 11.7 thou/uL (4.8-10.8)
[2020-11-19 13:21] LABS: ALT (SGPT) 19 U/L (8-55); AST (SGOT) 21 U/L (5-34); Albumin 3.6 g/dL (3.4-4.8); Alkaline Phosphatase 99 U/L (40-110); Anion Gap 14 mmol/L (10-20); BUN (Urea Nitrogen) 20 mg/dL (8.4-25.7); Bilirubin, Total 0.7 mg/dL (0.2-1.2); CK (CPK) 63 U/L (30-200); Calc. Creatinine Clearance 0 mL/min (70-130); Calcium 9.3 mg/dL (7.8-10.44); Carbon Dioxide 20 mmol/L (23-31); Chloride 109 mmol/L (98-107); Globulin 3.3 g/dL (2.4-3.5); Glucose 112 mg/dL (83-110); Potassium 4.1 mmol/L (3.5-5.1); Protein, Total 6.9 g/dL (5.8-8.1); Sodium 139 mmol/L (136-145)
[2020-11-19 13:41] LABS: Bilirubin Negative (Negative); Blood, Urine Negative (Negative); Clarity Clear (Clear); Glucose, Urine (Dipstick) Normal (Negative); Ketone, Urine Negative (Negative); Leukocyte Negative Leu/uL (Negative); Nitrite Negative (Negative); Protein, Urine (Dipstick) 10 mg/dL (Neg-Trace); Specific Gravity, Urine 1.017 (1.002-1.036); Urobilinogen Normal mg/dL (Less than 2); pH, Urine 5.5 (5.0-9.0)
[2020-11-19] MEDS ORDERED: Cefepime 2 GM VIAL ONE (14:21)
[2020-11-19] MEDS ORDERED: Aspirin 325 MG TAB ONE (14:21)
[2020-11-19] MEDS ORDERED: Aspirin Chewable 81 MG TAB ONE (14:25)
[2020-11-19] MEDS ORDERED: Acetaminophen 325 MG TAB PO PRN (15:17)
[2020-11-19] MEDS ORDERED: Acetaminophen 650 MG Suppository PR PRN (15:17)
[2020-11-19] MEDS ORDERED: Ondansetron ODT 4 MG TAB PO PRN (15:17)
[2020-11-19] MEDS ORDERED: Ondansetron PF 4 MG/2 ML Vial IVP PRN (15:17)
[2020-11-19 15:38] LABS: Lactic Acid 2.1 mmol/L (0.5-2.2)
[2020-11-19] MEDS ORDERED: Vancomycin 1.5 GRAM/300 ML BAG 1.5 GM in Premix Bag 1 BAG IVPB SCH (16:00)
[2020-11-19] MEDS: Sodium Chloride 0.9% 1,000 ML IV SCH (19:37)
[2020-11-20 05:40] LABS: #Basophils 0.1 thou/uL (0.0-0.2); #Eosinphils 0.4 thou/uL (0.0-0.7); #Lymphocytes 2.1 thou/uL (1.20-3.40); #Neutrophils 5.9 thou/uL (1.40-6.50); %Basophils 0.6 % (0.0-1.0); %Eosinophils 4.4 % (0.0-10.0); %Lymphocytes 22.5 % (21.0-51.0); %Monocytes 10.5 % (0.0-10.0); %Neutrophils 62.1 % (42.0-75.0); Mean Corpuscular HGB CONC 32.5 g/dL (32.0-36.0); Mean Corpuscular Hemoglobin 30.4 pg (27.0-31.0); Mean Corpuscular Volume 93.6 fL (78.0-98.0); Platelet Count 267 thou/uL (130-400); RBC Distribution Width 12.5 % (11.5-14.5); Red Blood Cell (RBC) Count 4.94 mill/uL (4.70-6.10); White Blood Cell (WBC) Count 9.5 thou/uL (4.8-10.8)
[2020-11-20 05:55] LABS: Lactic Acid 1.3 mmol/L (0.5-2.2)
[2020-11-20 06:03] LABS: Anion Gap 10 mmol/L (10-20); BUN (Urea Nitrogen) 16 mg/dL (8.4-25.7); Calc. Creatinine Clearance 39 mL/min (70-130); Carbon Dioxide 24 mmol/L (23-31); Chloride 110 mmol/L (98-107); Glucose 95 mg/dL (83-110); Potassium 3.8 mmol/L (3.5-5.1); Sodium 140 mmol/L (136-145)
[2020-11-20 09:08] LABS: Troponin I Less than 0.010 ng/mL (< 0.028)
[2020-11-20] MEDS ORDERED: Amiodarone 200 MG TAB PO SCH (09:45)
[2020-11-20 11:37] LABS: SARS-CoV-2 PCR by NAA Not Detected (NotDetected)
[2020-11-20 13:18] LABS: Troponin I Less than 0.010 ng/mL (< 0.028)
[2020-11-20 14:25] VITALS: BMI 25.8
[2020-11-20] MEDS: hydrOXYzine Pamoate 25 mg Capsule PO SCH ×2 (15:40→21:16)
[2020-11-20] MEDS: Sodium Chloride 0.9% 1,000 ML IV SCH ×2 (15:43→16:58)
[2020-11-20] MEDS ORDERED: hydrALAZINE 20 MG/ML VIAL SLOW IVP SCH (16:00)
[2020-11-20] MEDS ORDERED: Rosuvastatin 20 MG TAB PO SCH (21:00)
[2020-11-20] MEDS ORDERED: Tamsulosin HCl 0.4 MG CAP PO SCH (21:00)
[2020-11-20] MEDS: Icosapent Ethyl 1 GM CAPSULE PO SCH (21:17)
[2020-11-20] MEDS: NIFEdipine XL 60 MG TAB PO SCH (21:19)
[2020-11-21] MEDS ORDERED: Vancomycin 1 GM in Premix Bag 1 BAG IVPB SCH ×2 (01:00→16:00)
[2020-11-21] MEDS ORDERED: Sodium Chloride 0.9% 1,000 ML IV SCH (07:15)
[2020-11-21] MEDS: Icosapent Ethyl 1 GM CAPSULE PO SCH (08:18)
[2020-11-21] MEDS: NIFEdipine XL 60 MG TAB PO SCH (08:18)
[2020-11-21] MEDS: hydrOXYzine Pamoate 25 mg Capsule PO SCH ×2 (08:19→16:24)
[2020-11-21] MEDS: Sodium Chloride 0.9% 1,000 ML IV SCH (08:20)
[2020-11-21] MEDS ORDERED: Tamsulosin HCl 0.4 MG CAP PO SCH (09:00)
[2020-11-21] MEDS ORDERED: Amiodarone 200 MG TAB PO SCH (09:00)
[2020-11-21 13:14] VITALS: TEMP 98.1
[2020-11-21 16:52] VITALS: BP 138/65
== END 2020-11-21 18:23 | disposition home or self-care (01) | DRG 683 ==
LOC: ERS 11:31 → 2SW 14:45 → ERHOLD 15:19 → OBSVTOIN 15:24 → 2SW 11-20 12:59
PROVIDERS: ADMIT Internal Medicine; ATTEND Nurse Practitioner Family
DX: N17.9 Acute kidney failure, unspecified (principal); E87.2 Acidosis; E86.0 Dehydration; Z20.822 Contact with and (suspected) exposure to COVID-19; N18.9 Chronic kidney disease, unspecified; I48.0 Paroxysmal atrial fibrillation; R00.1 Bradycardia, unspecified; E78.5 Hyperlipidemia, unspecified; I12.9 Hypertensive chronic kidney disease with stage 1 through stage 4 chronic kidney disease, or unspecified chronic kidney disease; N40.0 Benign prostatic hyperplasia without lower urinary tract symptoms; I25.10 Atherosclerotic heart disease of native coronary artery without angina pectoris; K21.9 Gastro-esophageal reflux disease without esophagitis; Z79.899 Other long term (current) drug therapy; Z95.1 Presence of aortocoronary bypass graft; Z95.0 Presence of cardiac pacemaker
CPT/HCPCS: 36415; 36416; 70450; 71045; 80048; 80053; 81003; 82550; 83605; 84484; 85025; 87040; 87149; 93005; 93306; 93880; 96365; 96366; 96367; 96375; G0378; J0360; J0692; J3370; Q0177; U0003; U0005

== ENCOUNTER 2021-02-20 09:26 | Inpatient (IN) | payer MEDICARE, MEDICAID ==
[2021-02-20 11:04] LABS: Hemoglobin 14.3 g/dL (14.0-18.0); Mean Corpuscular HGB CONC 34.2 g/dL (32.0-36.0); Mean Corpuscular Hemoglobin 31.6 pg (27.0-31.0); Mean Corpuscular Volume 92.5 fL (78.0-98.0); Mean Platelet Volume 7.1 fL (7.4-10.4); Platelet Count 222 thou/uL (130-400); RBC Distribution Width 12.7 % (11.5-14.5); Red Blood Cell (RBC) Count 4.53 mill/uL (4.70-6.10); White Blood Cell (WBC) Count 22.8 thou/uL (4.8-10.8)
[2021-02-20 11:17] LABS: ALT (SGPT) 25 U/L (8-55); AST (SGOT) 26 U/L (5-34); Albumin 3.3 g/dL (3.4-4.8); Alkaline Phosphatase 83 U/L (40-110); Anion Gap 13 mmol/L (10-20); BUN (Urea Nitrogen) 19 mg/dL (8.4-25.7); Bilirubin, Total 1.3 mg/dL (0.2-1.2); Calc. Creatinine Clearance 0 mL/min (70-130); Calcium 8.7 mg/dL (7.8-10.44); Carbon Dioxide 23 mmol/L (23-31); Chloride 106 mmol/L (98-107); Globulin 2.7 g/dL (2.4-3.5); Glucose 113 mg/dL (83-110); Potassium 4.4 mmol/L (3.5-5.1); Sodium 138 mmol/L (136-145)
[2021-02-20 11:27] LABS: Band 4 % (5-11); Lymphocytes 6 % (21-51); MDiff Complete? YES; Monocytes 5 % (0-10); Neutrophil 85 % (42-75); Platelet Morphology Comment Appears Adequate; RBC Morphology Normal
[2021-02-20] MEDS ORDERED: Cefepime 2 GM VIAL ONE (15:29)
[2021-02-20] MEDS ORDERED: Vancomycin 1 GM/200 ML BAG ONE (16:21)
[2021-02-20] MEDS ORDERED: Nitroglycerin 0.4 MG TAB (25 Tab Bottle) SL PRN (20:27)
[2021-02-20] MEDS ORDERED: Bisacodyl 10 MG SUPP PR PRN (20:41)
[2021-02-20] MEDS ORDERED: Calcium Carbonate 500 MG ChewTAB PO PRN (20:41)
[2021-02-20] MEDS ORDERED: Acetaminophen 325 MG TAB PO PRN (20:41)
[2021-02-20] MEDS ORDERED: Meropenem 1 GM in Sodium Chloride 0.9% 100 ML IVPB SCH (20:45)
[2021-02-21] MEDS: Amiodarone 200 MG TAB PO SCH ×3 (08:47→20:48)
[2021-02-21] MEDS: Aspirin 81 mg Enteric Coated Tablet PO SCH (08:47)
[2021-02-21] MEDS: Senokot S 8.6-50 MG TAB PO SCH ×3 (08:47→20:47)
[2021-02-21] MEDS: Multivit, Therapeutic 1 TAB PO SCH (08:47)
[2021-02-21] MEDS: Tamsulosin HCl 0.4 MG CAP PO SCH ×2 (08:48→20:58)
[2021-02-21] MEDS: Sodium Chloride 0.9% 1,000 ML IV SCH ×2 (08:50→15:18)
[2021-02-21] MEDS ORDERED: MEROPENEM 1 GM/50 ML 1 GM in Premix Bag 1 BAG IVPB SCH ×2 (09:00→17:00)
[2021-02-21 10:39] VITALS: BMI 24.7
[2021-02-21] MEDS ORDERED: NIFEdipine XL 60 MG TAB PO SCH (12:00)
[2021-02-21 12:14] LABS: #Eosinphils 0.1 thou/uL (0.0-0.7); #Lymphocytes 1.9 thou/uL (1.20-3.40); #Neutrophils 6.9 thou/uL (1.40-6.50); %Basophils 0.2 % (0.0-1.0); %Eosinophils 1.5 % (0.0-10.0); %Lymphocytes 19.2 % (21.0-51.0); %Neutrophils 69.2 % (42.0-75.0); Hemoglobin 15.9 g/dL (14.0-18.0); Mean Corpuscular HGB CONC 32.3 g/dL (32.0-36.0); Mean Corpuscular Hemoglobin 30.1 pg (27.0-31.0); Mean Corpuscular Volume 93.2 fL (78.0-98.0); Mean Platelet Volume 7.8 fL (7.4-10.4); Platelet Count 217 thou/uL (130-400); Red Blood Cell (RBC) Count 5.27 mill/uL (4.70-6.10)
[2021-02-21 12:37] LABS: ALT (SGPT) 37 U/L (8-55); AST (SGOT) 41 U/L (5-34); Albumin 3.4 g/dL (3.4-4.8); Alkaline Phosphatase 85 U/L (40-110); Anion Gap 13 mmol/L (10-20); BUN (Urea Nitrogen) 16 mg/dL (8.4-25.7); Bilirubin, Total 1.2 mg/dL (0.2-1.2); Calc. Creatinine Clearance 35 mL/min (70-130); Calcium 9.3 mg/dL (7.8-10.44); Carbon Dioxide 25 mmol/L (23-31); Chloride 104 mmol/L (98-107); Globulin 2.9 g/dL (2.4-3.5); Glucose 108 mg/dL (83-110); Magnesium 1.8 mg/dL (1.6-2.6); Phosphorus 2.4 mg/dL (2.3-4.7); Protein, Total 6.3 g/dL (5.8-8.1); Sodium 138 mmol/L (136-145)
[2021-02-21 13:22] LABS: Bacteria/HPF None Seen HPF (None Seen); Bilirubin Negative (Negative); Blood, Urine Trace (Negative); Clarity Clear (Clear); Glucose, Urine (Dipstick) Normal (Negative); Ketone, Urine Negative (Negative); Leukocyte Negative Leu/uL (Negative); Nitrite Negative (Negative); Protein, Urine (Dipstick) 30 mg/dL (Neg-Trace); RBC/HPF 0-3 HPF (0-3); Specific Gravity, Urine 1.006 (1.002-1.036); Squamous Epithelial 0-3 HPF (0-3); Urobilinogen Normal mg/dL (Less than 2); WBC/HPF 0-3 HPF (0-3); pH, Urine 7.5 (5.0-9.0)
[2021-02-21 13:30] LABS: SARS-CoV-2 PCR by NAA Not Detected (NotDetected)
[2021-02-21] MEDS: cefTRIAXone\\ROCEPHIN 1 GM in Sodium Chloride 0.9% 100 ML IVPB SCH (15:18)
[2021-02-21] MEDS ORDERED: Vancomycin 1 GM in Premix Bag 1 BAG IVPB SCH (16:00)
[2021-02-21] MEDS: NIFEdipine XL 60 MG TAB PO SCH (20:48)
[2021-02-21] MEDS: Rosuvastatin 10 MG TAB PO SCH (20:58)
[2021-02-21] MEDS ORDERED: Tamsulosin HCl 0.4 MG CAP PO SCH (21:00)
[2021-02-21] MEDS ORDERED: Amiodarone 200 MG TAB PO SCH (21:00)
[2021-02-22] MEDS: hydrOXYzine 25 MG TAB PO SCH ×2 (00:02→20:42)
[2021-02-22] MEDS: Senokot S 8.6-50 MG TAB PO SCH ×2 (08:00→20:43)
[2021-02-22] MEDS: NIFEdipine XL 60 MG TAB PO SCH ×2 (08:00→20:42)
[2021-02-22] MEDS: Aspirin 81 mg Enteric Coated Tablet PO SCH (08:00)
[2021-02-22] MEDS: Calcitriol 0.25 MCG CAP PO SCH (08:00)
[2021-02-22] MEDS: Amiodarone 200 MG TAB PO SCH ×2 (08:00→20:43)
[2021-02-22] MEDS: Multivit, Therapeutic 1 TAB PO SCH (08:01)
[2021-02-22 09:31] LABS: #Eosinphils 0.3 thou/uL (0.0-0.7); #Lymphocytes 1.8 thou/uL (1.20-3.40); #Monocytes 0.8 thou/uL (0.11-0.59); #Neutrophils 4.4 thou/uL (1.40-6.50); %Basophils 0.1 % (0.0-1.0); %Eosinophils 4.7 % (0.0-10.0); %Lymphocytes 24.1 % (21.0-51.0); %Monocytes 11.1 % (0.0-10.0); %Neutrophils 60.1 % (42.0-75.0); Hemoglobin 14.1 g/dL (14.0-18.0); Mean Corpuscular Hemoglobin 30.8 pg (27.0-31.0); Mean Corpuscular Volume 93.3 fL (78.0-98.0); Mean Platelet Volume 7.3 fL (7.4-10.4); Platelet Count 205 thou/uL (130-400); RBC Distribution Width 12.9 % (11.5-14.5); Red Blood Cell (RBC) Count 4.57 mill/uL (4.70-6.10); White Blood Cell (WBC) Count 7.3 thou/uL (4.8-10.8)
[2021-02-22 09:46] LABS: ALT (SGPT) 30 U/L (8-55); AST (SGOT) 33 U/L (5-34); Albumin 3.1 g/dL (3.4-4.8); Alkaline Phosphatase 70 U/L (40-110); Anion Gap 14 mmol/L (10-20); BUN (Urea Nitrogen) 15 mg/dL (8.4-25.7); Bilirubin, Total 0.6 mg/dL (0.2-1.2); CK (CPK) 108 U/L (30-200); Calc. Creatinine Clearance 36 mL/min (70-130); Calcium 8.8 mg/dL (7.8-10.44); Carbon Dioxide 22 mmol/L (23-31); Chloride 106 mmol/L (98-107); Globulin 2.4 g/dL (2.4-3.5); Glucose 157 mg/dL (83-110); Potassium 3.7 mmol/L (3.5-5.1); Protein, Total 5.5 g/dL (5.8-8.1); Sodium 138 mmol/L (136-145)
[2021-02-22] MEDS: hydrOXYzine Pamoate 25 mg Capsule PO PRN (11:59)
[2021-02-22] MEDS: cefTRIAXone\\ROCEPHIN 1 GM in Sodium Chloride 0.9% 100 ML IVPB SCH (14:05)
[2021-02-22] MEDS: Rosuvastatin 10 MG TAB PO SCH (20:42)
[2021-02-22] MEDS: Tamsulosin HCl 0.4 MG CAP PO SCH (20:43)
[2021-02-23] MEDS: hydrOXYzine Pamoate 25 mg Capsule PO PRN ×2 (04:36→13:18)
[2021-02-23 06:52] LABS: #Eosinphils 0.6 thou/uL (0.0-0.7); #Lymphocytes 2.5 thou/uL (1.20-3.40); #Monocytes 0.7 thou/uL (0.11-0.59); #Neutrophils 3.4 thou/uL (1.40-6.50); %Basophils 0.4 % (0.0-1.0); %Eosinophils 8.1 % (0.0-10.0); %Lymphocytes 34.5 % (21.0-51.0); %Monocytes 10.3 % (0.0-10.0); %Neutrophils 46.6 % (42.0-75.0); Mean Corpuscular HGB CONC 32.9 g/dL (32.0-36.0); Mean Corpuscular Hemoglobin 30.5 pg (27.0-31.0); Mean Corpuscular Volume 92.7 fL (78.0-98.0); Mean Platelet Volume 7.4 fL (7.4-10.4); Platelet Count 232 thou/uL (130-400); RBC Distribution Width 12.9 % (11.5-14.5); Red Blood Cell (RBC) Count 4.93 mill/uL (4.70-6.10); White Blood Cell (WBC) Count 7.2 thou/uL (4.8-10.8)
[2021-02-23 07:13] LABS: Anion Gap 11 mmol/L (10-20); BUN (Urea Nitrogen) 13 mg/dL (8.4-25.7); Calc. Creatinine Clearance 38 mL/min (70-130); Calcium 8.8 mg/dL (7.8-10.44); Carbon Dioxide 25 mmol/L (23-31); Chloride 106 mmol/L (98-107); Glucose 105 mg/dL (83-110); Potassium 3.8 mmol/L (3.5-5.1); Sodium 138 mmol/L (136-145)
[2021-02-23] MEDS: Aspirin 81 mg Enteric Coated Tablet PO SCH (08:42)
[2021-02-23] MEDS: Senokot S 8.6-50 MG TAB PO SCH (08:42)
[2021-02-23] MEDS: Amiodarone 200 MG TAB PO SCH (08:42)
[2021-02-23] MEDS: NIFEdipine XL 60 MG TAB PO SCH (08:42)
[2021-02-23] MEDS: Calcitriol 0.25 MCG CAP PO SCH (08:42)
[2021-02-23] MEDS: Multivit, Therapeutic 1 TAB PO SCH (08:42)
[2021-02-23 13:11] VITALS: BP 126/73; TEMP 97.9
== END 2021-02-23 14:52 | disposition home or self-care (01) | DRG 872 ==
LOC: ERS 09:26 → T4-A 02-21 07:56
PROVIDERS: ADMIT Internal Medicine; ATTEND Internal Medicine
DX: A41.9 Sepsis, unspecified organism (principal); L03.116 Cellulitis of left lower limb; Z20.822 Contact with and (suspected) exposure to COVID-19; I48.0 Paroxysmal atrial fibrillation; N40.0 Benign prostatic hyperplasia without lower urinary tract symptoms; E78.5 Hyperlipidemia, unspecified; I49.5 Sick sinus syndrome; I12.9 Hypertensive chronic kidney disease with stage 1 through stage 4 chronic kidney disease, or unspecified chronic kidney disease; N18.30 Chronic kidney disease, stage 3 unspecified; K21.9 Gastro-esophageal reflux disease without esophagitis; I25.10 Atherosclerotic heart disease of native coronary artery without angina pectoris; Z95.0 Presence of cardiac pacemaker; Z79.899 Other long term (current) drug therapy; Z95.1 Presence of aortocoronary bypass graft
CPT/HCPCS: 36415; 51701; 70450; 71045; 80048; 80053; 81001; 81003; 82550; 82607; 82746; 83605; 83735; 84100; 85025; 87040; 87086; J0692; J0696; J2185; J3370; J3490; J7050; Q0177; U0003; U0005

== ENCOUNTER 2022-09-15 10:19 | Outpatient (CLI) | payer MEDICARE, MEDICAID | END 2022-09-15 10:20 | disposition home or self-care (01) | LOC: RAD-FRANK 10:19 | PROVIDERS: ATTEND Nurse Practitioner Family | DX: M54.2 Cervicalgia (principal); M47.812 Spondylosis without myelopathy or radiculopathy, cervical region; M50.31 Other cervical disc degeneration, high cervical region; M50.321 Other cervical disc degeneration at C4-C5 level; M50.323 Other cervical disc degeneration at C6-C7 level | CPT/HCPCS: 72040 ==